=== PATIENT | male | born 1955 | race Caucasian/White ===

== ENCOUNTER 2017-03-09 06:15 | Day surgery (SDC) | payer BC ==
[2017-03-09] VITALS (21 sets, daily range): BP systolic 104–153; BP diastolic 58–90; PULSE 68–96; RESP 12–20; Ht 177.8 cm; Wt 67.3 kg
[~2017-03-09] VITALS: Ht 177.8 cm; Wt 67.3 kg
[2017-03-09 06:52] LABS: ADD SCAN DIFF NO
[2017-03-09] MEDS ORDERED: SIMV20TA2 PO (06:53)
[2017-03-09] MEDS ORDERED: ASPI81TA3 PO (06:53)
[2017-03-09 07:07] LABS: ABNORMAL IP MESSAGE 1; ALBUMIN 4.7 g/dl (3.3-4.9); HEMATOCRIT 43.7 % (42.0-52.0); HEMOGLOBIN 14.5 g/dl (14.0-18.0); MEAN CORPUSCULAR HEMOGLOBIN 31.8 pg (29.0-33.0); MEAN CORPUSCULAR HGB CONC 33.2 g/dl (32.0-37.0); MEAN CORPUSCULAR VOLUME 95.8 fl (82.0-101.0); MEAN PLATELET VOLUME 13.9 fl (7.4-10.4); PLATELET COUNT 86 10^3/UL (140-415); RED BLOOD COUNT 4.56 10^6/ul (4.70-6.10); RED CELL DISTRIBUTION WIDTH 12.4 % (11.5-14.5); WHITE BLOOD COUNT 10.9 10^3/ul (4.8-10.8)
[2017-03-09 07:08] LABS: POTASSIUM 3.8 mmol/L (3.5-5.1)
[2017-03-09] MEDS ORDERED: LIDOCAINE 1% (MDV) 20 ML INJ ONE (07:09)
[2017-03-09 07:10] LABS: ALBUMIN/GLOBULIN RATIO 1.34; BILIRUBIN,INDIRECT 0.6 mg/dl (0-1.1); BILIRUBIN,TOTAL 0.6 mg/dl (0.2-1.3); CREATININE 0.69 mg/dl (0.61-1.24); TOTAL PROTEIN 8.2 g/dl (6.1-8.1)
[2017-03-09] MEDS ORDERED: NITROGLYCERIN (IC) 100 MCG/ML INJ ONE (07:10)
[2017-03-09] MEDS ORDERED: VERAPAMIL 5 MG INJ ONE (07:10)
[2017-03-09] MEDS ORDERED: IODIXANOL LOCM 100 ML BTL ONE (07:10)
[2017-03-09 07:11] LABS: CALCIUM 9.4 mg/dl (8.4-10.2); INR 0.93; PARTIAL THROMBOPLASTIN TIME 32.9 Sec (25.0-35.0); PROTIME 12.5 Sec (12.2-14.2)
[2017-03-09] MEDS ORDERED: SOD CHLORIDE 0.9% 500 ML ONE (07:11)
[2017-03-09] MEDS ORDERED: HEPARIN 1000 UNITS/ML 10 ML INJ ONE (07:11)
[2017-03-09] MEDS ORDERED: MIDAZOLAM 1 MG/ML 2 ML INJ ONE (08:23)
[2017-03-09] MEDS ORDERED: FENTAnyl 50 MCG/ML VIAL ONE (08:23)
--- NOTE | 2017-03-09 09:06 | RADRPT ---
Vent Rate: 93 bpm RR Interval: 0 msec DE Interval: 144 msec QRS Duration: 88 msec QT Interval: 384 msec QTC Interval: 477 msec P-R-T [place]: 67 - 73 - 68 degrees Normal sinus rhythm Possible Left atrial enlargement Left ventricular hypertrophy Cannot rule out Anteroseptal infarct , age undetermined Abnormal ECG Electronically Signed By: Jerad Trevino [id number]
[2017-03-09] MEDS ORDERED: SOD CHLORIDE 0.9% 1,000 ML IV SCH (09:14)
--- NOTE | 2017-03-09 09:17 | PDOCDIS ---
Discharge Instructions CONDITION Patient Condition: Good HOME CARE INSTRUCTIONS: Diet Instructions: Low Fat /Cholesterol ACTIVITY: Activity Restrictions: Avoid heavy lifting (no strenous activity or activity that cause shortness of breath or chest pain) Do not Drive (x 1 day) FOLLOW UP/APPOINTMENTS Appointments CT surgery evaluation Ranulfo Alvarado DO Mar 09, 2017 09:17
[2017-03-09 09:26] LABS: LYMPHOCYTES # 1.4 10^3/ul (0.8-2.9); NEUTROPHIL # 8.3 10^3/ul (1.6-7.5)
[2017-03-09 09:27] LABS: PLATELET ESTIMATE PLT APPEAR DECREASED
[2017-03-09] MEDS ORDERED: ONDANSETRON 4 MG INJ IV PRN (09:30)
[2017-03-09] MEDS ORDERED: AL HYDROX/MG HYDROX/SIMETH 30 ML CUP PO PRN (09:30)
[2017-03-09] MEDS ORDERED: HOLD all METFORMIN and METFORMIN CONTAINING medications for 48 hours post procedure. Chec XX SCH (09:30)
[2017-03-09] MEDS ORDERED: ACETAMINOPHEN 325 MG TAB PO PRN (09:30)
--- NOTE | 2017-03-09 10:19 | CARRPT ---
DATE OF PROCEDURE: 03/09/2017 PROCEDURES: 1. Left heart catheterization. 2. Right and left coronary angiogram. 3. Interpretation and supervision of right and left coronary angiogram. 4. Left ventricular pressure measurements. 5. Right radial artery approach. PATIENT HISTORY: This is a 61-year-old male who presents with unstable angina and abnormal stress test. FINDINGS: HEMODYNAMICS: 1. LV pressure was 131/-2 with an EDP of 27. 2. Aortic pressure was 121/73, there was a gradient of 10 mmHg. CORONARY FINDINGS: 1. Left main is a large caliber vessel with no significant disease. 2. Circumflex is a medium caliber vessel. In the mid vessel there is an 80% stenosis and then following that there is a 99% stenosis leading into the second obtuse marginal. Second obtuse marginal is a medium caliber vessel. There is a first obtuse marginal which is prior to the area of stenosis with a proximal 30% stenosis in the obtuse marginal. 3. LAD is a large caliber vessel and proximally there is a 90% long area of stenosis. This does include the ostium of the first medium caliber diagonal with ostium of the diagonal having 80% stenosis. The mid to distal LAD is a medium to large caliber vessel with no significant disease. 4. RCA is a medium caliber vessel and is dominant. There is a proximal 100% occlusion. The mid to distal vessel is seen via collaterals from the left system with a mid 20% stenosis. DESCRIPTION OF PROCEDURE: The patient was brought to the microbiology lab technician after informed consent. The patient was prepped and draped as per protocol. Right radial access was obtained. The 5/6-Mauritanian sheath was placed in the right radial artery. A 5-Mauritanian JL3.5 diagnostic catheter was used to engage the left main and angiogram was performed. A 5-Mauritanian JR4 catheter was used to enter the left ventricle. Pressure measurements were obtained as well as pullback. We next engaged the RCA, angiogram was performed. The patient with evidence of triple vessel disease including CAN SLIDER of the RCA. Given the above, patient will be referred for CT surgery. All catheters and wires were removed. There were no immediate complications. DIAGNOSIS: Obstructive coronary artery disease, triple vessel. COMPLICATIONS: None. ESTIMATED BLOOD LOSS: Minimal. RECOMMENDATIONS: CT surgery evaluation. Dictated By: FRANCISCO GUZMAN/CONCEPCION Conf#: [id number] DID#: [id number]
== END 2017-03-09 14:20 | disposition home or self-care (01) ==
LOC: SDS 06:15
PROVIDERS: ATTEND Internal Medicine Cardiovascular Disease
DX: I25.10 Atherosclerotic heart disease of native coronary artery without angina pectoris (principal); R94.39 Abnormal result of other cardiovascular function study
CPT/HCPCS: 80053; 85025; 85610; 85730; 93005; 93458; C1769; C1887; C1894; J1644; J2250; J3010; J7040; Q9967; Z7610

== ENCOUNTER 2017-03-29 07:30 | Inpatient (IN) | payer BC ==
[2017-03-29] VITALS (12 sets, daily range): BP systolic 100–154; BP diastolic 59–87; PULSE 87–150; RESP 16–22; TEMP 95–95.7; Ht 165.1 cm; Wt 66.9 kg
[~2017-03-29] VITALS: Ht 165.1 cm; Wt 66.9 kg
[~2017-03-29 07:30] MED LIST: ASPI81TA3 PO; SIMV20TA2 PO
[2017-03-29] MEDS ORDERED: VANCOMYCIN 1 GM INJ ONE (09:20)
[2017-03-29] MEDS ORDERED: GELATIN SIZE 100 SPONGE ONE ×2 (09:20→19:45)
[2017-03-29] MEDS ORDERED: THROMBIN 5000 UNIT VIAL ONE ×2 (09:21→19:45)
[2017-03-29] MEDS ORDERED: HEPARIN 1000 UNITS/ML 10 ML INJ ONE ×2 (09:21→13:03)
[2017-03-29] MEDS ORDERED: MIDAZOLAM 5 ML ONE ×4 (10:16→13:22)
[2017-03-29] MEDS ORDERED: PHENYLephrine (100 MCG/ML) 5ML SYG ONE ×5 (10:21→17:41)
[2017-03-29] MEDS ORDERED: ALBUMIN HUMAN 25% 300 ML ONE (10:26)
[2017-03-29] MEDS ORDERED: AMINOCAPROIC ACID 5 GM INJ ONE ×5 (10:27→19:39)
[2017-03-29] MEDS ORDERED: CA CHLORIDE 10% 10 ML SYRINGE ONE (10:27)
[2017-03-29] MEDS ORDERED: HEPARIN 10,000 UNITS/ML 1 ML INJ ONE (10:28)
[2017-03-29] MEDS ORDERED: POTASSIUM CHLORIDE 40 MEQ INJ ONE ×2 (10:28→17:28)
[2017-03-29] MEDS ORDERED: PHENYLephrine 10 MG INJ ONE (10:29)
[2017-03-29] MEDS ORDERED: MAGNESIUM SULFATE (MG) 50% 10 ML INJ ONE (10:30)
[2017-03-29] MEDS ORDERED: MANNITOL 25% 150 ML ONE (10:31)
[2017-03-29] MEDS ORDERED: NA BICARBONATE 8.4% 50 ML SYG ONE (10:31)
--- NOTE | 2017-03-29 11:08 | HPN ---
Date/Time of Note Date/Time of Note DATE: 03/29/17 TIME: 11:08 Interval H&P Admission Note Pt. seen H&P reviewed: No system changes TOMEKA DELEON MD March 29, 2017 11:08
[2017-03-29] MEDS ORDERED: POLYMYXIN/BACITRACIN 1L IRRIG ONE (11:14)
[2017-03-29] MEDS ORDERED: PHENYLephrine 20MG IN 250 ML 250 ML IV SCH ×2 (11:30→22:30)
[2017-03-29] MEDS ORDERED: INSULIN HUMAN REGULAR 100 UNIT in SOD CHLORIDE 0.9% 99 ML IV SCH (11:30)
[2017-03-29] MEDS ORDERED: EPINEPHrine 4 MG in DEXTROSE 5% 246 ML IV SCH (11:30)
[2017-03-29] MEDS ORDERED: CEFAZOLIN 1 GM INJ ONE ×3 (12:17→19:57)
[2017-03-29] MEDS ORDERED: PAPAVERINE 60 MG INJ ONE (13:06)
[2017-03-29] MEDS ORDERED: FUROSEMIDE 20 MG INJ ONE ×2 (13:26→18:23)
[2017-03-29] MEDS ORDERED: PROTAMINE 250 MG INJ ONE ×2 (17:39→21:33)
[2017-03-29] MEDS ORDERED: AMIODARONE 150 MG INJ ONE (18:06)
[2017-03-29] MEDS ORDERED: ETOMIDATE 20 MG INJ ONE (18:20)
[2017-03-29] MEDS ORDERED: LIDOCAINE 2% (SDV) 5 ML INJ ONE (18:20)
[2017-03-29] MEDS ORDERED: ROCURONIUM 50 MG INJ ONE (18:20)
--- NOTE | 2017-03-29 22:21 | OPR ---
Date/Time of Note Date/Time of Note DATE: 03/29/17 TIME: 22:19 Operative Report Preoperative Diagnosis CAD , MR Postoperative Diagnosis Same Operation Performed CABG times 5 and MVR Surgeon: TOMEKA DELEON MD Instructional Media Services Technician: SADI LOVELACE MD Anesthesia: general Anesthesiologist: ESTEPHANIA HOWARD MD Tubes/Drains CT times 2 Complications: None Pt Condition Post Procedure: critical Operative\Procedure Findings Dictated TOMEKA DELEON MD March 29, 2017 22:21
--- NOTE | 2017-03-29 22:28 | RADRPT ---
PROCEDURE: XR Chest. CLINICAL INDICATION: Postoperative.. TECHNIQUE: Single frontal chest x-ray. COMPARISON: None. FINDINGS: The patient status post sternotomy. Internal balloon pump is at the mid just below the aortic arch. Bilateral chest tubes and mediastinal drains are present. Endotracheal tube tip is at the level o f the aortic knob above rose. [place]-Sonia catheter tip is in the main pulmonary artery.. Heart is mildly enlarged. There is no CHF.. No focal infiltrate is seen. There is no pleural effusion. The re is no pneumothorax. The osseous structures are unremarkable. IMPRESSION: Lines as described above. No CHF or pneumothorax. Fine discussed with Dr. Mane 03/29/2017 at 22:15. RPTAT: HMVK .Ranulfo Garay MD, Date Time Electronically viewed and signed by .Ranulfo Garay MD, on 03/29/2017 22:28 .K/
[2017-03-29] MEDS ORDERED: ONDANSETRON 4 MG INJ IV PRN (22:30)
[2017-03-29] MEDS ORDERED: DOPamine-D5W 1.6 MG/ML 250 ML IV SCH (22:30)
[2017-03-29] MEDS: EPINEPHrine 4 MG in DEXTROSE 5% 246 ML IV SCH (22:30)
[2017-03-29] MEDS ORDERED: DIPHENHYDRAMINE 50 MG INJ IV PRN (22:30)
[2017-03-29] MEDS ORDERED: morphine (1 MG/ML) 10ML SYRINGE IV PRN ×2 (22:30)
[2017-03-29] MEDS ORDERED: NITROGLYCERIN 50 MG/D5W (PMX) 250 ML IV SCH (22:30)
[2017-03-29] MEDS ORDERED: hydrALAzine 20 MG INJ IV PRN (22:30)
[2017-03-29] MEDS ORDERED: EPHEDrine SULFATE 50 MG/5 ML SYG IV PRN (22:30)
[2017-03-29] MEDS: MILRINONE LACTATE 100 ML IV SCH (22:30)
[2017-03-29] MEDS ORDERED: DEXTROSE 50% 50 ML SYRINGE ONE (22:40)
[2017-03-29] MEDS: POTASSIUM CHLORIDE 40 MEQ, CALCIUM CHLORIDE 10% 1 GM in DEXTROSE 5%-0.225% NACL 1,000 ML IV SCH (23:03)
[2017-03-29 23:10] LABS: MODE VENT - AC; MetHgb Mixed Venous 0.5 %; Mixed Venous COHb 0.3 %; Mixed Venous Fraction OxyHgb 78.7 %; Mixed Venous Oxygen Sat 79.3 mmHG (65.0-75.0); Mixed Venous Total Hemglobin 12.5 g/dl; Sample Type BLMV
[2017-03-29 23:11] LABS: AADO2 Arterial 145.4 mmHg (7.0-24.0); Arterial Base Excess -5.1 mmol/L (-3.0-3); Arterial COHb 0.3 % (0.0-3.0); Arterial HCO3 22.2 mmol/L (22.0-26.0); Arterial MetHb 0.6 % (0.0-1.5); MODE VENT - AC
[2017-03-29 23:30] LABS: ADD SCAN DIFF NO
[2017-03-29 23:38] LABS: ABNORMAL IP MESSAGE 1; HEMATOCRIT 36.1 % (42.0-52.0); HEMOGLOBIN 12.2 g/dl (14.0-18.0); MEAN CORPUSCULAR HEMOGLOBIN 30.9 pg (29.0-33.0); MEAN CORPUSCULAR HGB CONC 33.8 g/dl (32.0-37.0); MEAN CORPUSCULAR VOLUME 91.4 fl (82.0-101.0); MEAN PLATELET VOLUME 11.3 fl (7.4-10.4); PLATELET COUNT 97 10^3/UL (140-415); RED BLOOD COUNT 3.95 10^6/ul (4.70-6.10); RED CELL DISTRIBUTION WIDTH 14.6 % (11.5-14.5); WHITE BLOOD COUNT 24.6 10^3/ul (4.8-10.8)
[2017-03-29 23:49] LABS: INR 1.43; PT RATIO 1.4
[2017-03-29 23:51] LABS: ALBUMIN 3.2 g/dl (3.3-4.9); ALBUMIN/GLOBULIN RATIO 1.45; BILIRUBIN,INDIRECT 0.7 mg/dl (0-1.1); BILIRUBIN,TOTAL 0.7 mg/dl (0.2-1.3); CALCIUM 8.7 mg/dl (8.4-10.2); CREATININE 0.93 mg/dl (0.61-1.24); TOTAL PROTEIN 5.4 g/dl (6.1-8.1)
[2017-03-30] VITALS (105 sets, daily range): BP systolic 88–143; BP diastolic 47–69; PULSE 85–131; RESP 20–29; TEMP 96–103
[2017-03-30 00:01] LABS: POTASSIUM 2.8 mmol/L (3.5-5.1)
--- NOTE | 2017-03-30 00:25 | RADRPT ---
PROCEDURE: XR Chest. CLINICAL INDICATION: Postoperative evaluation. Balloon pump TECHNIQUE: Portable AP supine view of the chest was obtained. COMPARISON: 03/29/2017 at 21:55 FINDINGS: Distal tip of the endotracheal tube remains in good position projecting 3.6 cm above the rose. Th e nasogastric tube is traceable to below the inferior margin of the exposure within the region of th e stomach. The right internal jugular approach [place]-Sonia catheter is again noted with the tip proje cting over the main pulmonary outflow tract. Intra-aortic balloon pump radiopaque tip projects just below the aortic knob, unchanged. Left-sided chest tubes are again noted. The lungs are clear. T here is no evidence for pleural effusion, pneumothorax or pulmonary vascular congestion. Sternotomy wires consistent with recent thoracotomy are again demonstrated. Multiple monitoring wires overlie the chest limiting fine evaluation RPTAT:HJJR IMPRESSION: 1. Radiopaque tip of the intra-aortic balloon pump remains in satisfactory position projecting just below the aortic knob. 2. Endotracheal tube, nasogastric tube, right [place]-Sonia catheter and left-sided chest tubes remain in satisfactory radiographic positions for this patient who is status post thoracotomy, presumably C ABG. 3. Well expanded lungs without evidence of consolidation or obvious pneumothorax on this supine exp osure. Physician Shelly Date Time Electronically viewed and signed by Physician Shelly on 03/30/2017 00:24 JR/
[2017-03-30] MEDS ORDERED: HYDROmorphONE 1 MG/ML SYG IV PRN ×4 (00:30→02:00)
[2017-03-30 00:35] LABS: LYMPHOCYTES # 1.7 10^3/ul (0.8-2.9); MONOCYTE # 3.2 10^3/ul (0.3-0.9); NEUTROPHIL # 15.5 10^3/ul (1.6-7.5); PLATELET ESTIMATE PLT APPEAR DECREASED
[2017-03-30] MEDS: POTASSIUM CHLORIDE 50 ML IVPB PRN ×3 (00:42→02:58)
[2017-03-30] MEDS: POTASSIUM CHLORIDE 40 MEQ, CALCIUM CHLORIDE 10% 1 GM in DEXTROSE 5%-0.225% NACL 1,000 ML IV SCH (00:49)
[2017-03-30] MEDS: INSULIN ASPART [NOVOLOG] 3 ML PEN SC SCH ×5 (01:00→17:00)
[2017-03-30 01:53] LABS: AADO2 Arterial 119.4 mmHg (7.0-24.0); Arterial Base Excess -1.8 mmol/L (-3.0-3); Arterial COHb 0.3 % (0.0-3.0); Arterial Fraction of Oxyhgb 98.1 % (93.0-99.0); Arterial HCO3 22.7 mmol/L (22.0-26.0); Arterial MetHb 0.5 % (0.0-1.5); Arterial Total Hemglobin 12.7 g/dl (12.0-18.0); MODE VENT - AC
[2017-03-30] MEDS: PHENYLephrine 40 MG in DEXTROSE 5% 496 ML IV SCH ×7 (01:55→23:04)
[2017-03-30] MEDS: PROPOFOL 100 ML IV SCH ×2 (02:18→11:00)
[2017-03-30 02:54] LABS: PROTIME 17.5 Sec (12.2-14.2)
[2017-03-30] MEDS: ACETAMINOPHEN 650 MG SUPP PR PRN ×3 (02:57→20:28)
--- NOTE | 2017-03-30 03:47 | OPR ---
DATE OF OPERATION: PREOPERATIVE DIAGNOSES: 1. Coronary artery disease. 2. Mitral regurgitation. POSTOPERATIVE DIAGNOSES: 1. Coronary artery disease. 2. Mitral regurgitation. PROCEDURE: 1. Coronary artery bypass grafting x5. a. CHAMPION to LAD. b. Saphenous vein graft to the first obtuse marginal branch of the circumflex. c. Saphenous vein branch to the second obtuse marginal of the circumflex. d. Saphenous vein graft in a complex fashion to the PDA. e. Saphenous vein graft in a complex fashion to the PAUL. 2. CHAMPION to LAD. 3. Right coronary endarterectomy. 4. Obtuse marginal branch of the circumflex endarterectomy. 5. Mitral valve regurgitation. 6. Saphenous vein harvest from the left thigh. 7. Saphenous vein harvest from the right thigh. 8. Right femoral intraaortic balloon pump placement. 9. Right femoral central line placement. SURGEON: Dr. Littlejohn HEAT READER: Dr. Pantoja ANESTHESIA: General. INFORMED CONSENT: Risks, benefits, complications, alternative therapies, high-risk nature of the op eration were fully explained to the patient and the family, consent obtained. OPERATIVE TECHNIQUE: The patient was placed in supine position, prepped and draped in usual sterile fashion. A timeout was called. Sternotomy incision was made from the sternal notch down to the xi phoid process. Saphenous vein was harvested from bilateral using endoscopic techniques, from the ri ght and left thighs. The sternum was opened. Left internal mammary artery was harvested using electrocautery and titaniu m clips. Chest retractor was placed. Pericardium opened. Patient fully heparinized. Cannulation sutures of 3-0 Prolene with pledgets were applied to the distal ascending aorta, mid ascending aorta , body of the right atrium, right atrial appendage and the superior part of the right atrium. After adequate documentation of ACT, aorta was cannulated, followed by 2-stage venous cannula, anterior a nd retrograde cardioplegic cannula and a venous cannula going into the superior vena cava. The heart was placed on cardiopulmonary bypass. After stabilization on bypass, crossclamp applied. Heart was arrested. Arrest was a cold blood cardioplegia given every 15 to 20 minutes, antegrade a nd retrograde, and being through the vein grafts as they were being reconstructed, and topical slush to the surface of the heart. First anastomosis was the first obtuse marginal branch of the circumflex. Vein was used, end-to-otilia e fashion. Ten mm longitudinal arteriotomy, 7-0 Prolene in continuous suture technique, end-to-side manner. The second anastomosis was the second obtuse marginal branch of the circumflex, 15 mm longitudinal a rteriotomy after an endarterectomy, end-to-side fashion, 7-0 Prolene continuous suture technique. T he third and fourth anastomoses were done to the PDA and PAUL in a complex fashion using the same vei n, end-to-side manner, after coronary endarterectomy, 7-0 Prolene in continuous suture technique. At this time, umbilical tapes were passed around the superior and inferior vena cava. They were agustina en down. Right atrium was opened. The ovalis was opened. The dome of the left atrium was op ened. Left atrium was entered. The mitral valve was inspected, appeared to be grossly diseased, es pecially anterior leaflet. The anterior leaflet was resected. The posterior leaflet was kept, 29 m m valve was then sized, placed after using 16 valve sutures in the annulus of the mitral valve. Sut ures were taken to the mitral prosthesis which was a tissue valve [employer]. The sutures tied. The septum was closed using 4-0 Prolene suture in 2 layers. The right atrium was closed in a similar f ashion. The mammary was anastomosed to the LAD, 8 mm longitudinal arteriotomy, end-to-side fashion, 7-0 Prol jose manuel in continuous suture technique. The 3 proximal anastomoses were done on the same crossclamp, 4.5 mm punches, end-to-side manner, 6-0 Prolene in continuous suture technique. It appeared that the first obtuse marginal branch of vein appeared to be a little tight. It was then taken down and anastomosed to the vein of the second obt use marginal branch, end-to-side manner, after a 10 mm longitudinal arteriotomy, 7-0 Prolene in cont inuous suture technique. This was done off crossclamp. Crossclamp had been taken off. Head placed in steep Trendelenburg position, heart and the grafts de aired. The heart was arrested for a good 15 minutes on bypass, then came off bypass without any sig nificant difficulty. However, the blood pressure appeared to be low and the myocardial function fan eared to be poor, ejection fraction about 20% to 25%, which was the same as the beginning of the ope ration. Mitral valve apparatus appeared to be intact. No bleeding, no perivalvular leak. Intraaor tic balloon pump was placed through a right femoral approach, right central line approach, line was also placed for IV use. Patient was given protamine, cannulas removed, sutures tied. Patient also had to be supported with multiple inotropic drips. However, heart function improved. No evidence of any bleeding was noted. Four chest tubes were placed, 2 mediastinal, 2 pleurals. Two ventricular pacing wires, all al t out through a lower stab wound, secured to skin using silk sutures. The sternum was closed using cable system [id number] x4. Linea alba and the deep tissues were irrigated again and closed in 2 layers of #1 Vicryl suture for the linea alba, 2-0 Vicryl suture for the deep and 4-0 Monocryl rodriguez ture for running subcuticular skin closure. The leg was closed in a similar fashion. The patient t ransported in stable condition to ICU. Dictated By: TOMEKA LITTLEJOHN MD FM/NTS Conf#: [id number] DID#: [id number] CC: SADI PANTOJA MD;*EndCC*
[2017-03-30] MEDS: HYDROmorphONE 1 MG/ML SYG IV PRN ×4 (04:12→18:03)
[2017-03-30 05:22] LABS: ADD SCAN DIFF NO
[2017-03-30 05:28] LABS: ABNORMAL IP MESSAGE 1; BASOPHILS % 0.2 % (0.0-2.0); EOSINOPHILS % 0.1 % (0.0-7.0); HEMOGLOBIN 12.3 g/dl (14.0-18.0); LYMPHOCYTES # 1.1 10^3/ul (0.8-2.9); LYMPHOCYTES % 6.5 % (15.0-51.0); MEAN CORPUSCULAR HEMOGLOBIN 30.9 pg (29.0-33.0); MEAN CORPUSCULAR HGB CONC 34.2 g/dl (32.0-37.0); MEAN CORPUSCULAR VOLUME 90.5 fl (82.0-101.0); MONOCYTE # 1.9 10^3/ul (0.3-0.9); MONOCYTES % 11.2 % (0.0-11.0); NEUTROPHIL # 13.9 10^3/ul (1.6-7.5); PLATELET COUNT 113 10^3/UL (140-415); RED BLOOD COUNT 3.98 10^6/ul (4.70-6.10); RED CELL DISTRIBUTION WIDTH 15.4 % (11.5-14.5); WHITE BLOOD COUNT 17.2 10^3/ul (4.8-10.8)
[2017-03-30 05:48] LABS: INR 1.14; PROTIME 14.6 Sec (12.2-14.2); PT RATIO 1.1
[2017-03-30 05:49] LABS: PARTIAL THROMBOPLASTIN TIME 33.5 Sec (25.0-35.0)
[2017-03-30 05:54] LABS: CALCIUM 8.9 mg/dl (8.4-10.2); CREATININE 1.1 mg/dl (0.61-1.24); MAGNESIUM 1.9 mg/dl (1.7-2.5); POTASSIUM 5.6 mmol/L (3.5-5.1)
[2017-03-30] MEDS: MILRINONE LACTATE 100 ML IV SCH ×2 (06:09→23:31)
[2017-03-30] MEDS: MAGNESIUM SULFATE 1 GM/D5W 100 ML IVPB PRN ×2 (06:24→23:26)
[2017-03-30] MEDS: EPINEPHrine 4 MG in DEXTROSE 5% 246 ML IV SCH (07:42)
[2017-03-30 08:03] LABS: Arterial Base Excess -4.2 mmol/L (-3.0-3); Arterial COHb 0.3 % (0.0-3.0); Arterial Fraction of Oxyhgb 97.7 % (93.0-99.0); Arterial HCO3 20.5 mmol/L (22.0-26.0); Arterial MetHb 0.5 % (0.0-1.5); Arterial Total Hemglobin 12.3 g/dl (12.0-18.0); MODE VENT - AC
[2017-03-30] MEDS ORDERED: ALBUMIN HUMAN 5% 250 ML IV PRN (09:00)
--- NOTE | 2017-03-30 09:09 | RADRPT ---
PROCEDURE: Chest 1 views. CLINICAL INDICATION: Shortness of breath TECHNIQUE: AP views of the chest was obtained. COMPARISON: Yesterday FINDINGS: The heart is large. Endotracheal tube is stable. [place]-Sonia catheter continues to have its tip in th e expected location of the main pulmonary artery. Mediastinal drain is unchanged. Intra-aortic ball oon pump is stable and has its tip just below the level of the aortic knob. Left-sided chest tubes a re stable. Right-sided chest tube is unchanged. No pneumothorax as visualized. The lungs are hyper expanded. No consolidation is seen mediasternotomy wires overlie the heart. The osseous structure s are stable. IMPRESSION: Cardiomegaly . Stable bilateral chest tubes. No visualized pneumothorax. Remaining support lines and tubes appear stable. Hyperexpanded, clear lungs. RPTAT: AA .Stevie Irizarry MD, Date Time Electronically viewed and signed by .Stevie Irizarry MD, on 03/30/2017 09:08 .P/
--- NOTE | 2017-03-30 09:24 | CONS ---
Date/Time of Note Date/Time of Note DATE: 03/30/17 TIME: 09:20 Assessment/Plan Assessment/Plan Additional Assessment/Plan Chest x-ray was reviewed from today which is totally clear. Endotracheal tube is at an adequate level. Patient currently on intra-aortic balloon pump. Propofol at 25 mics per kilo per minute. Ventilator settings; AC of 22, tidal volume 700, PEEP of 5, 40% FiO2. Assessment recommendations; next 1. Patient admitted for elective CABG surgery and mitral valve replacement. 2. Patient clinically doing very well. Continue current treatment. Intra-aortic balloon pump will be removed tomorrow. Most likely patient will be extubated after that. Ventilator settings have been adjusted, tidal volume has been decreased to 550, as the patient currently is being mildly hyperventilated. Consultation Date/Type/Reason Admit Date/Time March 29, 2017 at 09:30 Date of Consultation: March 30, 2017 Type of Consultation: Pulmonary/critical care Reason for Consultation Pulmonary consultations obtained for management of respiratory failure, patient status post CABG surgery. History presenting any; patient is a 61-year-old white male who was admitted yesterday for elective CABG surgery. Patient underwent CABG 5 as well as mitral valve replacement. Patient has been admitted to ICU on ventilator. By the time I saw the patient the patient is orally intubated, despite being on sedation is completely awake and follows commands. Past medical history; next 1. History of coronary artery disease. 2. Possibly hypertension. Medications; were reviewed. Allergies; none. Social history; non-smoker. Family history; currently not available. Next Occupational history; currently not available. Review of systems; limited review of system could be obtained. Patient denies any shortness of breath, chest pain. Any nausea vomiting. General exam; elderly male, orally intubated, awake and alert. Currently in no distress. Social History Smoking Status: Current every day smoker Exam/Review of Systems Vital Signs Vitals Vital Signs Date Time Temp Pulse Resp B/P Pulse Ox O2 Delivery O2 Flow Rate FiO2 03/30/17 07:00 100.6 102 22 97/65 100 03/30/17 05:18 40 03/29/17 10:15 Room Air Intake and Output 03/29/17 03/29/17 03/30/17 15:00 23:00 07:00 Intake Total 5099 ml 1817.0 ml Output Total 3544 ml 1047 ml Balance 1555 ml 770.0 ml Exam HEENT exam is; supple neck, no JVD. No lymphadenopathy. Midline trachea. No thyromegaly. Orally intubated. Pupils are midsize reactive to light. Patient has fair dentition. Neck Chest examined; clear to auscultation. Multiple chest tubes are in place. There is a dressing applied over the sternum. Abdomen examination; soft, non-distended. Nontender. No organomegaly. Bowel sounds audible. Extremity exam ; no peripheral edema. Pulses 1+ bilaterally. There is a dressing applied over the right lower extremity. 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 Results Result Diagram: 03/30/17 0500 03/30/17 0500 Results 24 hrs Laboratory Tests Test 03/29/17 22:29 03/29/17 22:59 03/29/17 23:00 03/29/17 23:39 Bedside Glucose 75 109 Blood [facility] arterial Arterial Blood Date Drawn 03/29/2017 10:50:59 PM 03/29/2017 10:57:43 PM Arterial Blood Gas Puncture Site A-Line A-Line Lane Test N/A N/A Mixed Venous Blood PO2 48.0 H Mixed Venous Blood O2 Saturation 79.3 H Mixed Venous Blood Total Hemoglobin 12.5 Mixed Venous Blood Oxyhemoglobin 78.7 Mixed Venous Bld Carboxyhemoglobin 0.3 Mixed Venous Blood Methemoglobin 0.5 Blood Gas Temperature 37.0 37.0 Blood Gas Respiration Rate 18.0 18.0 Blood Gas Actual Respiration Rate 18 18 Blood Gas Modality VENT - AC VENT - AC FiO2 60.0 60.0 Blood Gas Tidal Volume 600.0 600.0 Blood Gas Low PEEP Setting 5.0 5.0 Blood Gas Inspiratory Pressure 20.0 20.0 Blood Gas Notified Whom KM KM Blood Gas Notified Time 03/29/2017 11:10:29 PM 03/29/2017 11:11:44 PM White Blood Count 24.6 #H Red Blood Count 3.95 L Hemoglobin 12.2 L Hematocrit 36.1 L Mean Corpuscular Volume 91.4 Mean Corpuscular Hemoglobin 30.9 Mean Corpuscular Hemoglobin Concent 33.8 Red Cell Distribution Width 14.6 H Platelet Count 97 L Mean Platelet Volume 11.3 H Neutrophils % 63.0 Band Neutrophils % 17.0 H Lymphocytes % 7.0 L Monocytes % 13.0 H Neutrophils # 15.5 H Lymphocytes # 1.7 Monocytes # 3.2 H Platelet Estimate PLT APPEAR DECREASED Prothrombin Time 17.5 #H Prothrombin Time Ratio 1.4 INR International Normalized Ratio 1.43 Activated Partial Thromboplast Time 32.0 Arterial Blood pH (Temp corrected) 7.264 *L Arterial Blood pCO2 (Temp correct) 50.1 H Arterial Blood pO2 (Temp corrected) 227.3 H Arterial Blood HCO3 22.2 Arterial Blood Base Excess -5.1 L Arterial Blood Oxygen Saturation 98.9 H Arterial Blood Carboxyhemoglobin 0.3 Arterial Blood Methemoglobin 0.6 Blood Gas A-a O2 Differential 145.4 H Oxyhemoglobin Percent 98.0 Total Hemoglobin 13.0 Blood Gas Critical Value Read Back Judit PARKER RN Sodium Level 144 Potassium Level 2.8 *L Chloride Level 110 Carbon Dioxide Level 25 Anion Gap 12 Blood Urea Nitrogen 15 Creatinine 0.93 Glucose Level 169 Calcium Level 8.7 Magnesium Level 2.1 Total Bilirubin 0.7 Direct Bilirubin 0.00 Indirect Bilirubin 0.7 Aspartate Amino Transf (AST/SGOT) 113 H Alanine Aminotransferase (ALT/SGPT) 35 Alkaline Phosphatase 35 L Total Protein 5.4 L Albumin 3.2 L Globulin 2.20 Albumin/Globulin Ratio 1.45 Test 03/30/17 01:45 03/30/17 01:50 03/30/17 04:58 03/30/17 05:00 Blood Gas Specimen Source Blood arterial Arterial Blood Date Drawn 03/30/2017 1:45:12 AM Arterial Blood pH (Temp corrected) 7.397 Arterial Blood pCO2 (Temp correct) 37.8 Arterial Blood pO2 (Temp corrected) 266.8 H Arterial Blood HCO3 22.7 Arterial Blood Base Excess -1.8 Arterial Blood Oxygen Saturation 98.[address] Test N/A Arterial Blood Gas Puncture Site A-Line Arterial Blood Carboxyhemoglobin 0.3 Arterial Blood Methemoglobin 0.5 Blood Gas A-a O2 Differential 119.4 H Oxyhemoglobin Percent 98.1 Total Hemoglobin 12.7 Blood Gas Temperature 37.0 Blood Gas Respiration Rate 22.0 Blood Gas Actual Respiration Rate 22 Blood Gas Modality VENT - AC FiO2 60.0 Blood Gas Tidal Volume 700.0 Blood Gas Low PEEP Setting 5.0 Blood Gas Inspiratory Pressure 25.0 Blood Gas Notified Whom KM Blood Gas Notified Time 03/23/2017 1:53:05 AM Bedside Glucose 121 168 White Blood Count 17.2 #H Red Blood Count 3.98 L Hemoglobin 12.3 L Hematocrit 36.0 L Mean Corpuscular Volume 90.5 Mean Corpuscular Hemoglobin 30.9 Mean Corpuscular Hemoglobin Concent 34.2 Red Cell Distribution Width 15.4 H Platelet Count 113 L Mean Platelet Volume 12.0 H Neutrophils % 81.0 H Lymphocytes % 6.5 L Monocytes % 11.2 H Eosinophils % 0.1 Basophils % 0.2 Nucleated Red Blood Cells % 0.0 Neutrophils # 13.9 H Lymphocytes # 1.1 Monocytes # 1.9 H Eosinophils # 0.0 Basophils # 0.0 Nucleated Red Blood Cells # 0.0 Prothrombin Time 14.6 H Prothrombin Time Ratio 1.1 INR International Normalized Ratio 1.14 Activated Partial Thromboplast Time 33.5 Sodium Level 141 Potassium Level 5.6 #H Chloride Level 111 H Carbon Dioxide Level 22 Anion Gap 14 Blood Urea Nitrogen 19 Creatinine 1.10 Glucose Level 218 Calcium Level 8.9 Magnesium Level 1.9 Test 03/30/17 05:13 03/30/17 07:00 Lab Scanned Report REFERENCE LAB Blood Gas Specimen Source Blood arterial Arterial Blood Date Drawn 03/30/2017 7:50:03 AM Arterial Blood pH (Temp corrected) 7.367 Arterial Blood pCO2 (Temp correct) 36.6 Arterial Blood pO2 (Temp corrected) 173.1 H Arterial Blood HCO3 20.5 L Arterial Blood Base Excess -4.2 L Arterial Blood Oxygen Saturation 98.[address] Test N/A Arterial Blood Gas Puncture Site A-Line Arterial Blood Carboxyhemoglobin 0.3 Arterial Blood Methemoglobin 0.5 Blood Gas A-a O2 Differential 70.0 H Oxyhemoglobin Percent 97.7 Total Hemoglobin 12.3 Blood Gas Temperature 37.0 Blood Gas Respiration Rate 22.0 Blood Gas Actual Respiration Rate 22 Blood Gas Modality VENT - AC FiO2 40.0 Blood Gas Tidal Volume 700.0 Blood Gas Low PEEP Setting 5.0 Blood Gas Notified Whom DOUGLAS Blood Gas Notified Time 03/30/2017 8:03:08 AM Medications Medications Current Medications Phenylephrine HCl 40 mg/Dextrose 500 ml @ 75 mls/hr TITRATE IV Last administered on 03/30/17t 07:39; Admin Dose 195 MLS/HR; Start 03/30/17 at 06:00 Potassium Chloride/Calcium Chloride/Dextrose/ Sodium Chloride (KCl/Ca Chloride/ D5-1/4ns) 1,030 ml @ 60 mls/hr [id number] IV Last administered on 03/30/17 00:49 ; Admin Dose 60 MLS/HR; Start 03/29/17 at 23:03 Insulin Aspart (Novolog Insulin Pen) NOVOLOG *MILD* ALGORI... Q4 SC Last administered on 03/30/17 05:13; Admin Dose 1 UNIT; Start 03/30/17 at 01:00 Acetaminophen 650 mg 650 mg Q3H PRN NM ELEVATED TEMPERATURE Last administered on 03/30/17 02:57; Admin Dose 650 MG; Start 03/29/17 at 23:30 Magnesium Sulfate/ Dextrose (Magnesium Sulfate 1 Gm/D5W) 100 ml @ 100 mls/hr PRN PRN IVPB PENDING LAB VALUE Last administered on 03/30/17 06:24; Admin Dose 100 MLS/HR; Start 03/29/17 at 23:30 Hydromorphone HCl (Dilaudid) 0.2 mg Q2H PRN IV PAIN Last administered on 01:39; Admin Dose 0.2 MG; Start 03/30/17 at 00:30 Hydromorphone HCl (Dilaudid) 0.4 mg Q2H PRN IV PAIN; Start 03/30/17 at 00:30 Hydromorphone HCl (Dilaudid) 0.2 mg Q15M PRN IV PAIN; Start 03/30/17 at 02:00 Hydromorphone HCl 0.4 mg 0.4 mg Q15M PRN IV PAIN Last administered on 09:11; Admin Dose 0.4 MG; Start 03/30/17 at 02:00 Milrinone Lactate 100 ml @ 7.526 mls/ hr TITRATE IV Last administered on 06:09; Admin Dose 5.519 MLS/HR; Start 03/30/17 at 02:05 Propofol (Diprivan) 100 ml @ 2.007 mls/ hr Q12H IV Last administered on 02:18; Admin Dose 2.007 MLS/HR; Start 03/30/17 at 02:20 Pantoprazole 40 mg 40 mg DAILY@06 IV ; Start 03/31/17 at 06:00 Albumin Human 250 ml @ 250 mls/hr PRN PRN IV NOTE; Start 03/30/17 at 09:00 Cefazolin Sodium (Ancef 1 Gm/50 ml (Pmx)) 50 ml @ 100 mls/hr Q8 IVPB ; Start at 10:00; Stop 03/30/17 at 22:29 Miscellaneous Information 1 ea NOTE XX ; Start 03/30/17 at 09:30 Glucose (Glutose) 15 gm Q15M PRN PO DECREASED GLUCOSE; Start 03/30/17 at 09:30 Glucose (Glutose) 22.5 gm Q15M PRN PO DECREASED GLUCOSE; Start 03/30/17 at 09: 30 Dextrose (D50w Syringe) 25 ml Q15M PRN IV DECREASED GLUCOSE; Start 03/30/17 at 09:30 Dextrose (D50w Syringe) 50 ml Q15M PRN IV DECREASED GLUCOSE; Start 03/30/17 at 09:30 Glucagon (Glucagen) 1 mg Q15M PRN IM DECREASED GLUCOSE; Start 03/30/17 at 09:30 Glucose (Glutose) 15 gm Q15M PRN BUCCAL DECREASED GLUCOSE; Start 03/30/17 at 09 :30 TAHIRA TERAN March 30, 2017 09:24
[2017-03-30] MEDS ORDERED: GLUCOSE GEL 15 GRAM TUBE PO PRN ×2 (09:30)
[2017-03-30] MEDS ORDERED: GLUCOSE GEL 15 GRAM TUBE BUCCAL PRN (09:30)
[2017-03-30] MEDS ORDERED: DEXTROSE 50% 50 ML SYRINGE IV PRN ×4 (09:30)
[2017-03-30] MEDS: ACCU-CHEK XX SCH ×15 (09:30→23:30)
[2017-03-30] MEDS ORDERED: GLUCAGON 1 MG INJ IM PRN (09:30)
[2017-03-30] MEDS ORDERED: DEXTROSE 5%-0.225% NACL 1,000 ML IV SCH (09:30)
--- NOTE | 2017-03-30 10:16 | RADRPT ---
Vent Rate: 102 bpm RR Interval: 0 msec ME Interval: 144 msec QRS Duration: 116 msec QT Interval: 380 msec QTC Interval: 495 msec P-R-T [place]: 41 - 69 - 82 degrees Sinus tachycardia Incomplete right bundle branch block Anteroseptal infarct , age undetermined Abnormal ECG Electronically Signed By: Heath Maya [id number]
[2017-03-30 11:21] LABS: CALCIUM 8.3 mg/dl (8.4-10.2); CREATININE 0.97 mg/dl (0.61-1.24); MAGNESIUM 2.2 mg/dl (1.7-2.5); POTASSIUM 5.9 mmol/L (3.5-5.1)
--- NOTE | 2017-03-30 11:38 | PN ---
Date/Time of Note Date/Time of Note DATE: 03/30/17 TIME: 11:37 Assessment/Plan Lines/Catheters IV Catheter Type (from Nrsg): IABP Helm in Place (from Nrsg): Yes Assessment/Plan Chief Complaint/Hosp Course SP CABG, MVR hemodynamically stable will wean the pressors continue IABP continue CT sxn Problems: Subjective 24 Hr Interval Summary Constitutional: improved Pain Control: mild Exam/Review of Systems Vital Signs Vitals Vital Signs Date Time Temp Pulse Resp B/P Pulse Ox O2 Delivery O2 Flow Rate FiO2 03/30/17 10:45 100.3 98 25 104/61 100 03/30/17 05:18 40 03/29/17 10:15 Room Air Intake and Output 03/29/17 03/29/17 03/30/17 15:00 23:00 07:00 Intake Total 5099 ml 1817.0 ml Output Total 3544 ml 1047 ml Balance 1555 ml 770.0 ml Exam ENMT: mucosa pink and moist, nl external ears & nose, nl lips & teeth, nl nasal mucosa & septum Neck: non-tender, supple Respiratory: clear to auscultation, normal air movement Cardiovascular: nl pulses, regular rate and rhythm Results Result Diagram: 03/30/17 0500 03/30/17 1048 TOMEKA DELEON MD March 30, 2017 11:38
[2017-03-30] MEDS: INSULIN HUMAN REGULAR 100 UNIT in SOD CHLORIDE 0.9% 99 ML IV SCH ×3 (11:47→22:52)
[2017-03-30] MEDS ORDERED: FUROSEMIDE 20 MG INJ IV ONE (12:00)
[2017-03-30] MEDS: LORAZEPAM 2 MG INJ IV PRN ×2 (12:25→17:57)
[2017-03-30] MEDS: CEFAZOLIN 1 GM/50 ML (PMX) 50 ML IVPB SCH ×3 (14:00→21:57)
--- NOTE | 2017-03-30 16:06 | HP ---
DATE OF ADMISSION: 03/29/2017 HISTORY OF PRESENT ILLNESS: History has been obtained from medical record as the patient is intubat ed and under sedation and currently no family member is available. The patient is a 61-year-old gen tleman who underwent elective cardiac catheterization on 03/09/2017 at [facility] and was noted to have triple vessel coronary artery disease. Subsequently, he was referred to Dr. Laurence escalante as an outpatient. The patient apparently had mitral regurgitation. The patient was taken to OR and underwent CABG x5 including the CHAMPION to LAD, SVG to obtuse marginal first, SVG to the seco nd obtuse marginal, SVG to PDA, SVG to PAUL. The patient also underwent right carotid endarterectomy and obtuse marginal branch of the circumflex endarterectomy. The patient's mitral valve intraopera tively was noted to be grossly diseased and therefore the patient underwent tissue valve Medtr[employer] mitral valve replacement. Patient postoperatively remains sedated. Patient did have blood sugar of 200. The patient's chemistry done on 03/09/2017 revealed blood glucose of 110. The patient's medi cation list prior to admission is not available. The patient, however, postoperatively did develop elevated blood sugar for which patient is currently on insulin drip. We will obtain hemoglobin A1c. The patient had a white count of 6000. Today it has gone down to 17.2. Patient had a low-grade t emperature. No reported vomiting, no reported chills. The patient is arousable. REVIEW OF SYSTEMS: No reported hematuria. Chest tube is draining well. The rest of the review of systems could not be obtained. PAST MEDICAL HISTORY: As stated above. ALLERGIES: NONE. SOCIAL HISTORY, FAMILY AND MEDICATION LIST: Could not be obtained. PHYSICAL EXAMINATION: GENERAL: The revealed patient is sedated. VITAL SIGNS: Temperature 100.5, pulse 97, respirations 22, blood pressure 112/67, O2 saturation 100 % on FIO2 40%. Patient is currently on assist control. HEENT: Conjunctivae and lids normal. Nose and ears normal externally. NECK: No mass. CHEST: Diminished air entry at bases. CARDIOVASCULAR: S1, S2 normal. Regular rate and rhythm. ABDOMEN: Soft, nondistended. EXTREMITIES: No leg edema. Pedal pulses could not be felt clinically, although according to nasrin mcwilliams's RN with Doppler, he could hear pedal pulses. NEUROLOGIC: The patient is currently sedated. SKIN: Without acute rash. LABORATORY DATA: WBC 17.2, hemoglobin 12.6, platelet 113. Sodium 136, potassium 5.9, BUN 19, creat inine 0.9, glucose 140, calcium 8.3, magnesium 2.2. Chest x-ray done this morning revealed no resid ual pneumothorax and hyperexpanded clear lungs. IMPRESSION: 1. Multivessel coronary artery disease, status post coronary artery bypass graft and also mitral va lve replacement. 2. Questionable history of diabetes. 3. Postoperative respiratory failure. 4. Incomplete data. PLAN: Patient will be is currently in the ICU and is currently under sedation on Brian-Synephrine. T he patient has been started on IV cefazolin as per protocol. Patient is also on Milrinone. We will notify Dr. Alvarado to follow him up from cardiac standpoint. We will continue to monitor his platel et count and renal function. Further recommendation will depend upon patient's hospital course. Th e patient's postoperative respiratory failure is being managed by Dr. Valencia. The plan is discussed with nursing staff. We will discuss with the family when available. Dictated By: RUBI WEINER/CONCEPCION Conf#: [id number] DID#: [id number]
[2017-03-30 18:10] LABS: CREATININE 0.85 mg/dl (0.61-1.24); MAGNESIUM 2.1 mg/dl (1.7-2.5); POTASSIUM 4.8 mmol/L (3.5-5.1)
[2017-03-30] MEDS ORDERED: CALCIUM GLUCONATE 10% 1 GM in SOD CHLORIDE 0.9% 100 ML IVPB ONE (18:30)
[2017-03-30] MEDS: ALBUMIN HUMAN 5% 250 ML IV SCH ×2 (23:05→23:58)
[2017-03-30 23:16] LABS: MAGNESIUM 1.9 mg/dl (1.7-2.5); POTASSIUM 4.9 mmol/L (3.5-5.1)
[2017-03-31] VITALS (102 sets, daily range): BP systolic 56–141; BP diastolic 19–63; PULSE 75–108; RESP 22–29; TEMP 99.8–101
[2017-03-31] MEDS: ACCU-CHEK XX SCH ×24 (00:30→23:30)
[2017-03-31] MEDS: MAGNESIUM SULFATE 1 GM/D5W 100 ML IVPB PRN (00:52)
[2017-03-31] MEDS: INSULIN HUMAN REGULAR 100 UNIT in SOD CHLORIDE 0.9% 99 ML IV SCH ×3 (02:57→20:34)
[2017-03-31] MEDS: PHENYLephrine 40 MG in DEXTROSE 5% 496 ML IV SCH (04:00)
[2017-03-31] MEDS ORDERED: NACL 3% FOR INHALATION 15 ML NEBU NEB ONE (04:00)
[2017-03-31 04:01] LABS: ADD SCAN DIFF NO
[2017-03-31 04:02] LABS: ABNORMAL IP MESSAGE 1; HEMATOCRIT 27.7 % (42.0-52.0); HEMOGLOBIN 9.6 g/dl (14.0-18.0); MEAN CORPUSCULAR HEMOGLOBIN 31.4 pg (29.0-33.0); MEAN CORPUSCULAR HGB CONC 34.7 g/dl (32.0-37.0); MEAN CORPUSCULAR VOLUME 90.5 fl (82.0-101.0); MEAN PLATELET VOLUME 13.1 fl (7.4-10.4); PLATELET COUNT 42 10^3/UL (140-415); RED BLOOD COUNT 3.06 10^6/ul (4.70-6.10); RED CELL DISTRIBUTION WIDTH 15.2 % (11.5-14.5); WHITE BLOOD COUNT 18.7 10^3/ul (4.8-10.8)
[2017-03-31 04:42] LABS: POTASSIUM 4.9 mmol/L (3.5-5.1)
[2017-03-31 04:43] LABS: CREATININE 0.83 mg/dl (0.61-1.24)
[2017-03-31 04:44] LABS: ALBUMIN/GLOBULIN RATIO 1.25; BILIRUBIN,INDIRECT 0.5 mg/dl (0-1.1); BILIRUBIN,TOTAL 0.5 mg/dl (0.2-1.3); CALCIUM 7.8 mg/dl (8.4-10.2); CHOL/HDL RATIO 3.8 RATIO; TOTAL PROTEIN 5.4 g/dl (6.1-8.1)
[2017-03-31 05:47] LABS: MODE VENT - AC; MetHgb Mixed Venous 0.4 %; Mixed Venous COHb 0.3 %; Mixed Venous Fraction OxyHgb 58.1 %; Mixed Venous Oxygen Sat 58.5 mmHG (65.0-75.0); Mixed Venous Total Hemglobin 9.7 g/dl; Sample Type BLMV
[2017-03-31] MEDS: PANTOPRAZOLE 40 MG INJ IV SCH (06:26)
--- NOTE | 2017-03-31 07:24 | RADRPT ---
PROCEDURE: Chest Radiograph. CLINICAL INDICATION: Chest tube TECHNIQUE: Single frontal chest radiograph. COMPARISON: Chest radiograph 03/30/2017 FINDINGS: Study is limited as the right costophrenic angle is clipped from the film.. The patient is status p ost sternotomy. An endotracheal tube remains in stable position. A right internal jugular line wit h associated Eunice-Sonia catheter is seen with the distal tip in the region of the pulmonary outflow t ract. Mediastinal drains and bilateral chest tubes appear unchanged. There is no pneumothorax.. The lungs are grossly clear.. The bones are intact. IMPRESSION: 1. Stable radiographic appearance of chest compared to 03/30/2017. RPTAT: KK .Harlan Peres MD, MD Date Time Electronically viewed and signed by .Harlan Peres MD, on 03/31/2017 07:24 .B/
[2017-03-31] MEDS: HYDROmorphONE 1 MG/ML SYG IV PRN ×3 (07:41→14:38)
[2017-03-31] MEDS: LORAZEPAM 2 MG INJ IV PRN ×2 (07:41→17:03)
[2017-03-31] MEDS: DEXTROSE 5%-0.9% NACL 1,000 ML IV SCH (07:42)
[2017-03-31] MEDS ORDERED: CEFAZOLIN 1 GM/50 ML (PMX) 50 ML IVPB ONE (08:00)
[2017-03-31] MEDS ORDERED: CALCIUM GLUCONATE 10% 2 GM in SOD CHLORIDE 0.9% 100 ML IVPB ONE (08:00)
--- NOTE | 2017-03-31 10:33 | CONS ---
Date/Time of Note Date/Time of Note DATE: 03/31/17 TIME: 10:30 Consult Date/Type/Reason Admit Date/Time March 29, 2017 at 09:30 Initial Consult Date 03/30/17 Type of Consultation: Pulmonary/critical care Subjective Continues mechanical ventilation Intra-aortic balloon pump one-to-one ratio Continues vasopressor support Follows commands with decrease sedation Cardiac index 2.1 with an SPO2 of 60 Decreased output from chest tubes Objective Vital Signs Date Time Temp Pulse Resp B/P Pulse Ox O2 Delivery O2 Flow Rate FiO2 03/31/17 09:15 99.8 90 24 123/53 100 03/31/17 08:00 40 03/29/17 10:15 Room Air Intake and Output 03/30/17 03/30/17 03/31/17 15:00 23:00 07:00 Intake Total 2655.9 ml 1980.006 ml 1794.0 ml Output Total 732 ml 606 ml 459 ml Balance 1923.9 ml 1374.006 ml 1335.0 ml Exam PHYSICAL EXAMINATION GENERAL: Elderly gentleman, intubated on mechanical ventilation, opens eyes and appears somewhat agitated. Orally intubated. VITAL SIGNS: see below. HEENT: Pupils equal, round, and reactive to light. CARDIAC: S1, S2, 1/6 systolic ejection murmur CHEST: Diminished air entry bilaterally. ABDOMEN: Mildly distended. Bowel sounds present no guarding or rebound EXTREMITIES: No cyanosis, clubbing edema +1 NEUROLOGIC: Generalized weakness Results/Medications Result Diagram: 03/31/17 0345 03/31/17 0345 Results 24 hrs Laboratory Tests Test 03/30/17 10:48 03/30/17 13:13 03/30/17 14:19 03/30/17 15:47 Sodium Level 136 Potassium Level 5.9 H Chloride Level 106 Carbon Dioxide Level 24 Anion Gap 12 Blood Urea Nitrogen 19 Creatinine 0.97 Glucose Level 224 H Calcium Level 8.3 L Magnesium Level 2.2 Bedside Glucose 155 140 104 Test 03/30/17 16:53 03/30/17 17:00 03/30/17 18:49 03/30/17 20:30 Bedside Glucose 112 123 124 Sodium Level 134 L Potassium Level 4.8 Chloride Level 103 Carbon Dioxide Level 28 Anion Gap 8 Blood Urea Nitrogen 17 Creatinine 0.85 Glucose Level 135 # Calcium Level 8.0 L Magnesium Level 2.1 Test 03/30/17 22:30 03/30/17 22:50 03/31/17 01:22 03/31/17 02:53 Hemoglobin 10.8 L Hematocrit 31.2 L Potassium Level 4.9 Bedside Glucose 116 125 123 Magnesium Level 1.9 Test 03/31/17 03:45 03/31/17 05:30 03/31/17 06:39 03/31/17 07:51 White Blood Count 18.7 H Red Blood Count 3.06 #L Hemoglobin 9.6 L Hematocrit 27.7 L Mean Corpuscular Volume 90.5 Mean Corpuscular Hemoglobin 31.4 Mean Corpuscular Hemoglobin Concent 34.7 Red Cell Distribution Width 15.2 H Platelet Count 42 #L Mean Platelet Volume 13.1 H Sodium Level 131 L Potassium Level 4.9 Chloride Level 97 Carbon Dioxide Level 27 Anion Gap 12 Blood Urea Nitrogen 19 Creatinine 0.83 Glucose Level 125 Hemoglobin A1c 5.4 Calcium Level 7.8 L Magnesium Level 2.6 H Total Bilirubin 0.5 Direct Bilirubin 0.00 Indirect Bilirubin 0.5 Aspartate Amino Transf (AST/SGOT) 93 H Alanine Aminotransferase (ALT/SGPT) 44 Alkaline Phosphatase 37 L Total Protein 5.4 L Albumin 3.0 L Globulin 2.40 Albumin/Globulin Ratio 1.25 Triglycerides Level 179 H Cholesterol Level 84 L LDL Cholesterol, Calculated 26 HDL Cholesterol 22 L Cholesterol/HDL Ratio 3.8 Blood Gas Specimen Source BLMV Arterial Blood Date Drawn 03/31/2017 5:35:06 AM Arterial Blood Gas Puncture Site A-Line Lane Test N/A Mixed Venous Blood PO2 30.4 Mixed Venous Blood O2 Saturation 58.5 L Mixed Venous Blood Total Hemoglobin 9.7 Mixed Venous Blood Oxyhemoglobin 58.1 Mixed Venous Bld Carboxyhemoglobin 0.3 Mixed Venous Blood Methemoglobin 0.4 Blood Gas Temperature 37.0 Blood Gas Respiration Rate 22.0 Blood Gas Actual Respiration Rate 27 Blood Gas Modality VENT - AC FiO2 40.0 Blood Gas Tidal Volume 550.0 Blood Gas Low PEEP Setting 5.0 Blood Gas Inspiratory Pressure 25.0 Blood Gas Notified Whom AA Blood Gas Notified Time 03/31/2017 5:46:38 AM Bedside Glucose 121 131 Test 03/31/17 10:10 Bedside Glucose 117 Medications Current Medications Phenylephrine HCl/ Dextrose (Brian-Syneph/D5W) 500 ml @ 75 mls/hr TITRATE IV Last administered on 03/31/17 04:00; Admin Dose 75 MLS/HR; Start 03/30/17 at 06 :00 Acetaminophen 650 mg 650 mg Q3H PRN [place] ELEVATED TEMPERATURE Last administered on 03/30/17 20:28; Admin Dose 650 MG; Start 03/29/17 at 23:30 Magnesium Sulfate/ Dextrose (Magnesium Sulfate 1 Gm/D5W) 100 ml @ 100 mls/hr PRN PRN IVPB PENDING LAB VALUE Last administered on 03/31/17 00:52; Admin Dose 100 MLS/HR; Start 03/29/17 at 23:30 Hydromorphone HCl (Dilaudid) 0.2 mg Q2H PRN IV PAIN Last administered on 01:39; Admin Dose 0.2 MG; Start 03/30/17 at 00:30 Hydromorphone HCl (Dilaudid) 0.4 mg Q2H PRN IV PAIN; Start 03/30/17 at 00:30 Hydromorphone HCl (Dilaudid) 0.2 mg Q15M PRN IV PAIN; Start 03/30/17 at 02:00 Hydromorphone HCl 0.4 mg 0.4 mg Q15M PRN IV PAIN Last administered on 07:41; Admin Dose 0.4 MG; Start 03/30/17 at 02:00 Milrinone Lactate 100 ml @ 7.526 mls/ hr TITRATE IV Last administered on 23:31; Admin Dose 5.5 MLS/HR; Start 03/30/17 at 02:05 Propofol (Diprivan) 100 ml @ 2.007 mls/ hr Q12H IV Last administered on 00:00; Admin Dose 2 MLS/HR; Start 03/30/17 at 02:20 Pantoprazole 40 mg 40 mg DAILY@06 IV Last administered on 03/31/17 06:26; Admin Dose 40 MG; Start 03/31/17 at 06:00 Albumin Human 250 ml @ 250 mls/hr PRN PRN IV NOTE Last administered on 03:01; Admin Dose 250 MLS/HR; Start 03/30/17 at 09:00 Miscellaneous Information 1 ea NOTE XX ; Start 03/30/17 at 09:30 Glucose (Glutose) 15 gm Q15M PRN PO DECREASED GLUCOSE; Start 03/30/17 at 09:30 Glucose (Glutose) 22.5 gm Q15M PRN PO DECREASED GLUCOSE; Start 03/30/17 at 09: 30 Dextrose (D50w Syringe) 25 ml Q15M PRN IV DECREASED GLUCOSE; Start 03/30/17 at 09:30 Dextrose (D50w Syringe) 50 ml Q15M PRN IV DECREASED GLUCOSE; Start 03/30/17 at 09:30 Glucagon (Glucagen) 1 mg Q15M PRN IM DECREASED GLUCOSE; Start 03/30/17 at 09:30 Glucose (Glutose) 15 gm Q15M PRN BUCCAL DECREASED GLUCOSE; Start 03/30/17 at 09 :30 Diagnostic Test (Pha) (Accu-Chek) 1 ea Q1H XX Last administered on 03/31/17 10 :08; Admin Dose 1 EA; Start 03/30/17 at 09:30 Dextrose (D50w Syringe) 25 ml Q15M PRN IV Till BS 80 mg/dL or above x2; Start 03/30/17 at 09:30 Dextrose (D50w Syringe) 50 ml Q15M PRN IV Till BS 80 mg/dL or above x2; Start 03/30/17 at 09:30 Lorazepam 2 mg 2 mg Q2H PRN IV AGITATION/ANXIETY Last administered on 07:41; Admin Dose 2 MG; Start 03/30/17 at 12:00 Dextrose/Sodium Chloride (D5-NS) 1,000 ml @ 60 mls/hr [id number] IV Last administered on 03/31/17 07:42; Admin Dose 60 MLS/HR; Start 03/31/17 at 07:30 Assessment/Plan Chief Complaint/Hosp Course Assessment 1. Status post 5 vessel coronary artery bypass graft surgery and mitral valve replacement 2. Hypoxemic respiratory failure 3. Pulmonary edema radiographically 4. Leukocytosis concerning for possible line sepsis versus pneumonia 5. Encephalopathy toxic metabolic 6. Shock likely component of septic and cardiogenic Plan 1. Remove intra-aortic balloon pump per thoracic surgery 2. Decrease vasopressors as tolerated 3. Broaden antibiotics consider ID consult 4. Continue tube feeding 5. DVT GI prophylaxis Disposition Continue ICU care Problems: MUNDO JONES MD, FCCP March 31, 2017 10:33
--- NOTE | 2017-03-31 10:35 | RADRPT ---
Vent Rate: 90 bpm RR Interval: 0 msec [place] Interval: 142 msec QRS Duration: 106 msec QT Interval: 400 msec QTC Interval: 489 msec P-R-T [place]: 37 - 59 - 61 degrees Normal sinus rhythm Incomplete right bundle branch block Anteroseptal infarct , age undetermined Abnormal ECG Electronically Signed By: Heath Maya [id number]
[2017-03-31 11:02] LABS: EOSINOPHILS # 0.2 10^3/ul (0.0-0.5); LYMPHOCYTES # 2.6 10^3/ul (0.8-2.9); MONOCYTE # 0.7 10^3/ul (0.3-0.9); NEUTROPHIL # 13.1 10^3/ul (1.6-7.5)
--- NOTE | 2017-03-31 12:10 | PN ---
Date/Time of Note Date/Time of Note DATE: 03/31/17 TIME: 11:41 Assessment/Plan VTE Prophylaxis VTE Prophylaxis Intervention: other Lines/Catheters IV Catheter Type (from Nrs): CORDIS Urinary Cath still in place: Yes Reason Cath still needed: urinary retention Assessment/Plan Assessment/Plan - Leukocytosis- - ID consult - Dr Gaines notified. - Hypermagnesemia- - cont to monitor - per vascular sx - Multivessel coronary artery disease, status post coronary artery bypass graft and also mitral valve replacement. - ICU MONITORING - per dr Alvarado in cardiology -Questionable history of diabetes Hb AIC- 5.4 - Postoperative respiratory failure. -. Incomplete data. sedated, intubated, - at present , when awake- follows commands per staff. DRIPS - insulin, Propofol, D5W. Na 131 today, K -wnl. WBC elevated, febrile- will get ID consult- Dr Gaines notified, all lines - swan gauge cath, ET tube, x4 chest tubes, x2 pacer lines, rt groin balloon, rt groin central line, fc intact. dw staff Subjective 24 Hr Interval Summary Free Text/Dictation sedated, intubated, - at present , when awake- follows commands per staff. DRIPS - insulin, Propofol, D5W. Na 131 today, K -wnl. WBC elevated, febrile- will get ID consult- Dr Gaines notified, all lines - swan gauge cath, ET tube, x4 chest tubes, x2 pacer lines, rt groin balloon, rt groin central line, fc intact. dw staff Constitutional: requiring IVF, requiring O2 Exam/Review of Systems Vital Signs Vitals Vital Signs Date Time Temp Pulse Resp B/P Pulse Ox O2 Delivery O2 Flow Rate FiO2 03/31/17 11:00 100.1 95 23 105/47 99 03/31/17 08:00 40 03/29/17 10:15 Room Air Intake and Output 03/30/17 03/30/17 03/31/17 15:00 23:00 07:00 Intake Total 2655.9 ml 1980.006 ml 1794.0 ml Output Total 732 ml 606 ml 459 ml Balance 1923.9 ml 1374.006 ml 1335.0 ml Exam Constitutional: other (SEDATED) Eyes: nl sclera Respiratory: diminished breath sounds Cardiovascular: nl pulses Gastrointestinal: non-tender, soft Genitourinary - Male: other (FC- yellow /clear urine) Musculoskeletal: nl extremities to inspection Neurological: other (sedated) Results Result Diagram: 03/31/17 0345 03/31/17 0345 Results 24 hrs Laboratory Tests Test 03/30/17 13:13 03/30/17 14:19 03/30/17 15:47 03/30/17 16:53 Bedside Glucose 155 140 104 112 Test 03/30/17 17:00 03/30/17 18:49 03/30/17 20:30 03/30/17 22:30 Sodium Level 134 L Potassium Level 4.8 Chloride Level 103 Carbon Dioxide Level 28 Anion Gap 8 Blood Urea Nitrogen 17 Creatinine 0.85 Glucose Level 135 # Calcium Level 8.0 L Magnesium Level 2.1 Bedside Glucose 123 124 Hemoglobin 10.8 L Hematocrit 31.2 L Test 03/30/17 22:50 03/31/17 01:22 03/31/17 02:53 03/31/17 03:45 Potassium Level 4.9 4.9 Bedside Glucose 116 125 123 Magnesium Level 1.9 2.6 H White Blood Count 18.7 H Red Blood Count 3.06 #L Hemoglobin 9.6 L Hematocrit 27.7 L Mean Corpuscular Volume 90.5 Mean Corpuscular Hemoglobin 31.4 Mean Corpuscular Hemoglobin Concent 34.7 Red Cell Distribution Width 15.2 H Platelet Count 42 #L Mean Platelet Volume 13.1 H Neutrophils % 70.0 Band Neutrophils % 11.0 H Lymphocytes % 14.0 L Monocytes % 4.0 Eosinophils % 1.0 Neutrophils # 13.1 H Lymphocytes # 2.6 Monocytes # 0.7 Eosinophils # 0.2 Large Platelets FEW Giant Platelets RARE Sodium Level 131 L Chloride Level 97 Carbon Dioxide Level 27 Anion Gap 12 Blood Urea Nitrogen 19 Creatinine 0.83 Glucose Level 125 Hemoglobin A1c 5.4 Calcium Level 7.8 L Total Bilirubin 0.5 Direct Bilirubin 0.00 Indirect Bilirubin 0.5 Aspartate Amino Transf (AST/SGOT) 93 H Alanine Aminotransferase (ALT/SGPT) 44 Alkaline Phosphatase 37 L Total Protein 5.4 L Albumin 3.0 L Globulin 2.40 Albumin/Globulin Ratio 1.25 Triglycerides Level 179 H Cholesterol Level 84 L LDL Cholesterol, Calculated 26 HDL Cholesterol 22 L Cholesterol/HDL Ratio 3.8 Test 03/31/17 05:30 03/31/17 06:39 03/31/17 07:51 03/31/17 10:10 Blood Gas Specimen Source BLMV Arterial Blood Date Drawn 03/31/2017 5:35:06 AM Arterial Blood Gas Puncture Site A-Line Lane Test N/A Mixed Venous Blood PO2 30.4 Mixed Venous Blood O2 Saturation 58.5 L Mixed Venous Blood Total Hemoglobin 9.7 Mixed Venous Blood Oxyhemoglobin 58.1 Mixed Venous Bld Carboxyhemoglobin 0.3 Mixed Venous Blood Methemoglobin 0.4 Blood Gas Temperature 37.0 Blood Gas Respiration Rate 22.0 Blood Gas Actual Respiration Rate 27 Blood Gas Modality VENT - AC FiO2 40.0 Blood Gas Tidal Volume 550.0 Blood Gas Low PEEP Setting 5.0 Blood Gas Inspiratory Pressure 25.0 Blood Gas Notified Whom AA Blood Gas Notified Time 03/31/2017 5:46:38 AM Bedside Glucose 121 131 117 Medications Medications Current Medications Phenylephrine HCl/ Dextrose (Brian-Syneph/D5W) 500 ml @ 75 mls/hr TITRATE IV Last administered on 03/31/17 04:00; Admin Dose 75 MLS/HR; Start 03/30/17 at 06 :00 Acetaminophen 650 mg 650 mg Q3H PRN [place] ELEVATED TEMPERATURE Last administered on 03/30/17 20:28; Admin Dose 650 MG; Start 03/29/17 at 23:30 Magnesium Sulfate/ Dextrose (Magnesium Sulfate 1 Gm/D5W) 100 ml @ 100 mls/hr PRN PRN IVPB PENDING LAB VALUE Last administered on 03/31/17 00:52; Admin Dose 100 MLS/HR; Start 03/29/17 at 23:30 Hydromorphone HCl (Dilaudid) 0.2 mg Q2H PRN IV PAIN Last administered on 01:39; Admin Dose 0.2 MG; Start 03/30/17 at 00:30 Hydromorphone HCl (Dilaudid) 0.4 mg Q2H PRN IV PAIN; Start 03/30/17 at 00:30 Hydromorphone HCl (Dilaudid) 0.2 mg Q15M PRN IV PAIN; Start 03/30/17 at 02:00 Hydromorphone HCl 0.4 mg 0.4 mg Q15M PRN IV PAIN Last administered on 07:41; Admin Dose 0.4 MG; Start 03/30/17 at 02:00 Milrinone Lactate 100 ml @ 7.526 mls/ hr TITRATE IV Last administered on 23:31; Admin Dose 5.5 MLS/HR; Start 03/30/17 at 02:05 Propofol (Diprivan) 100 ml @ 2.007 mls/ hr Q12H IV Last administered on 00:00; Admin Dose 2 MLS/HR; Start 03/30/17 at 02:20 Pantoprazole 40 mg 40 mg DAILY@06 IV Last administered on 03/31/17 06:26; Admin Dose 40 MG; Start 03/31/17 at 06:00 Albumin Human 250 ml @ 250 mls/hr PRN PRN IV NOTE Last administered on 03:01; Admin Dose 250 MLS/HR; Start 03/30/17 at 09:00 Miscellaneous Information 1 ea NOTE XX ; Start 03/30/17 at 09:30 Glucose (Glutose) 15 gm Q15M PRN PO DECREASED GLUCOSE; Start 03/30/17 at 09:30 Glucose (Glutose) 22.5 gm Q15M PRN PO DECREASED GLUCOSE; Start 03/30/17 at 09: 30 Dextrose (D50w Syringe) 25 ml Q15M PRN IV DECREASED GLUCOSE; Start 03/30/17 at 09:30 Dextrose (D50w Syringe) 50 ml Q15M PRN IV DECREASED GLUCOSE; Start 03/30/17 at 09:30 Glucagon (Glucagen) 1 mg Q15M PRN IM DECREASED GLUCOSE; Start 03/30/17 at 09:30 Glucose (Glutose) 15 gm Q15M PRN BUCCAL DECREASED GLUCOSE; Start 03/30/17 at 09 :30 Diagnostic Test (Pha) (Accu-Chek) 1 ea Q1H XX Last administered on 03/31/17 10 :32; Admin Dose 1 EA; Start 03/30/17 at 09:30 Dextrose (D50w Syringe) 25 ml Q15M PRN IV Till BS 80 mg/dL or above x2; Start 03/30/17 at 09:30 Dextrose (D50w Syringe) 50 ml Q15M PRN IV Till BS 80 mg/dL or above x2; Start 5/10/17 at 09:30 Lorazepam 2 mg 2 mg Q2H PRN IV AGITATION/ANXIETY Last administered on 07:41; Admin Dose 2 MG; Start 03/30/17 at 12:00 Dextrose/Sodium Chloride 1,000 ml @ 60 mls/hr [id number] IV Last administered on 03/31/17 07:42; Admin Dose 60 MLS/HR; Start 03/31/17 at 07:30 Cefepime HCl (Maxipime 2gm/50 ml (Pmx)) 50 ml @ 100 mls/hr Q12 IVPB ; Start 10/07 at 12:00 NADINE NELSON March 31, 2017 11:53
--- NOTE | 2017-03-31 12:46 | QN ---
Documentation Comment ID consult requested by Akil THOMAS. Dr. Gaines will see pt shortly. VIRY CLEMENTS NP March 31, 2017 12:46
[2017-03-31] MEDS: CEFEPIME 2GM/50 ML (PMX) 50 ML IVPB SCH ×2 (13:23→20:31)
[2017-03-31] MEDS: PROPOFOL 100 ML IV SCH ×3 (14:20→20:30)
[2017-03-31] MEDS: ACETAMINOPHEN 650 MG SUPP PR PRN ×2 (14:50→22:49)
--- NOTE | 2017-03-31 16:56 | CONS ---
Date/Time of Note Date/Time of Note DATE: 03/31/17 TIME: 16:52 Assessment/Plan Assessment/Plan Additional Assessment/Plan Coronary artery disease status post CABG 5 Status post mitral valve replacement Respiratory failure ITP -Patient currently on minimal IV pressor. Would hold off initiation of beta- tyrone at the current time. Given patient's thrombocytopenia, would not start aspirin now. Patient being weaned off IV pressor and hopefully intra-aortic balloon pump to be removed within the next 24 hours if continues to improve. Would start statin therapy. Consider starting enteric feeding. Consultation Date/Type/Reason Admit Date/Time March 29, 2017 at 09:30 Type of Consultation: cv Reason for Consultation Coronary artery disease status post CABG Hx of Present Illness This is a 61-year-old male with past medical history of obstructive coronary artery disease, mitral valve regurgitation who underwent coronary artery bypass grafting 5 and mitral valve replacement on 03/29/2017. Patient remains intubated with balloon pump. Currently on minimal IV pressor. Patient sedated and intubated unable to give history. Unable to be performed at the current time given patient intubated and sedated Constitutional: requiring IVF, requiring O2 Past Medical History Mitral valve regurgitation Medical History: coronary artery disease, high cholesterol, hypertension Past Surgical History Past Surgical Hx: coronary bypass surgery Family History Significant Family History: no pertinent family hx Social History Smoking Status: Current every day smoker Exam/Review of Systems Vital Signs Vitals Vital Signs Date Time Temp Pulse Resp B/P Pulse Ox O2 Delivery O2 Flow Rate FiO2 03/31/17 16:00 103 03/31/17 15:00 100.5 22 113/51 99 03/31/17 13:30 40 03/29/17 10:15 Room Air Intake and Output 03/30/17 03/30/17 03/31/17 15:00 23:00 07:00 Intake Total 2655.9 ml 1980.006 ml 1794.0 ml Output Total 732 ml 606 ml 459 ml Balance 1923.9 ml 1374.006 ml 1335.0 ml Exam Intubated and sedated, intimately follows commands, no apparent distress Head: normocephalic ENMT: intubated Respiratory: other (Coarse breath sounds bilaterally, no wheezing) Cardiovascular: other (S1-S2 heard), regular rate and rhythm, systolic murmur Gastrointestinal: bowel sounds, non-tender, other (No guarding), soft Extremities: edema (Trace), other (Bandage lower extremity) Results Result Diagram: 03/31/17 0345 03/31/17 0345 Results 24 hrs Laboratory Tests Test 03/30/17 16:53 03/30/17 17:00 03/30/17 18:49 03/30/17 20:30 Bedside Glucose 112 123 124 Sodium Level 134 L Potassium Level 4.8 Chloride Level 103 Carbon Dioxide Level 28 Anion Gap 8 Blood Urea Nitrogen 17 Creatinine 0.85 Glucose Level 135 # Calcium Level 8.0 L Magnesium Level 2.1 Test 03/30/17 22:30 03/30/17 22:50 03/31/17 01:22 03/31/17 02:53 Hemoglobin 10.8 L Hematocrit 31.2 L Potassium Level 4.9 Bedside Glucose 116 125 123 Magnesium Level 1.9 Test 03/31/17 03:45 03/31/17 05:30 03/31/17 06:39 03/31/17 07:51 White Blood Count 18.7 H Red Blood Count 3.06 #L Hemoglobin 9.6 L Hematocrit 27.7 L Mean Corpuscular Volume 90.5 Mean Corpuscular Hemoglobin 31.4 Mean Corpuscular Hemoglobin Concent 34.7 Red Cell Distribution Width 15.2 H Platelet Count 42 #L Mean Platelet Volume 13.1 H Neutrophils % 70.0 Band Neutrophils % 11.0 H Lymphocytes % 14.0 L Monocytes % 4.0 Eosinophils % 1.0 Neutrophils # 13.1 H Lymphocytes # 2.6 Monocytes # 0.7 Eosinophils # 0.2 Large Platelets FEW Giant Platelets RARE Sodium Level 131 L Potassium Level 4.9 Chloride Level 97 Carbon Dioxide Level 27 Anion Gap 12 Blood Urea Nitrogen 19 Creatinine 0.83 Glucose Level 125 Hemoglobin A1c 5.4 Calcium Level 7.8 L Magnesium Level 2.6 H Total Bilirubin 0.5 Direct Bilirubin 0.00 Indirect Bilirubin 0.5 Aspartate Amino Transf (AST/SGOT) 93 H Alanine Aminotransferase (ALT/SGPT) 44 Alkaline Phosphatase 37 L Total Protein 5.4 L Albumin 3.0 L Globulin 2.40 Albumin/Globulin Ratio 1.25 Triglycerides Level 179 H Cholesterol Level 84 L LDL Cholesterol, Calculated 26 HDL Cholesterol 22 L Cholesterol/HDL Ratio 3.8 Blood Gas Specimen Source BLMV Arterial Blood Date Drawn 03/31/2017 5:35:06 AM Arterial Blood Gas Puncture Site A-Line Lane Test N/A Mixed Venous Blood PO2 30.4 Mixed Venous Blood O2 Saturation 58.5 L Mixed Venous Blood Total Hemoglobin 9.7 Mixed Venous Blood Oxyhemoglobin 58.1 Mixed Venous Bld Carboxyhemoglobin 0.3 Mixed Venous Blood Methemoglobin 0.4 Blood Gas Temperature 37.0 Blood Gas Respiration Rate 22.0 Blood Gas Actual Respiration Rate 27 Blood Gas Modality VENT - AC FiO2 40.0 Blood Gas Tidal Volume 550.0 Blood Gas Low PEEP Setting 5.0 Blood Gas Inspiratory Pressure 25.0 Blood Gas Notified Whom AA Blood Gas Notified Time 03/31/2017 5:46:38 AM Bedside Glucose 121 131 Test 03/31/17 10:10 03/31/17 11:47 03/31/17 15:02 Bedside Glucose 117 114 122 Medications Medications Current Medications Phenylephrine HCl/ Dextrose (Brian-Syneph/D5W) 500 ml @ 75 mls/hr TITRATE IV Last administered on 03/31/17 04:00; Admin Dose 75 MLS/HR; Start 03/30/17 at 06 :00 Acetaminophen 650 mg 650 mg Q3H PRN [place] ELEVATED TEMPERATURE Last administered on 03/31/17 14:50; Admin Dose 650 MG; Start 03/29/17 at 23:30 Magnesium Sulfate/ Dextrose (Magnesium Sulfate 1 Gm/D5W) 100 ml @ 100 mls/hr PRN PRN IVPB PENDING LAB VALUE Last administered on 03/31/17 00:52; Admin Dose 100 MLS/HR; Start 03/29/17 at 23:30 Hydromorphone HCl (Dilaudid) 0.2 mg Q2H PRN IV PAIN Last administered on 01:39; Admin Dose 0.2 MG; Start 03/30/17 at 00:30 Hydromorphone HCl (Dilaudid) 0.4 mg Q2H PRN IV PAIN; Start 03/30/17 at 00:30 Hydromorphone HCl (Dilaudid) 0.2 mg Q15M PRN IV PAIN; Start 03/30/17 at 02:00 Hydromorphone HCl 0.4 mg 0.4 mg Q15M PRN IV PAIN Last administered on 14:38; Admin Dose 0.4 MG; Start 03/30/17 at 02:00 Milrinone Lactate 100 ml @ 7.526 mls/ hr TITRATE IV Last administered on 23:31; Admin Dose 5.5 MLS/HR; Start 03/30/17 at 02:05 Propofol (Diprivan) 100 ml @ 2.007 mls/ hr Q12H IV Last administered on 00:00; Admin Dose 2 MLS/HR; Start 03/30/17 at 02:20 Pantoprazole 40 mg 40 mg DAILY@06 IV Last administered on 03/31/17 06:26; Admin Dose 40 MG; Start 03/31/17 at 06:00 Albumin Human 250 ml @ 250 mls/hr PRN PRN IV NOTE Last administered on 03:01; Admin Dose 250 MLS/HR; Start 03/30/17 at 09:00 Miscellaneous Information 1 ea NOTE XX ; Start 03/30/17 at 09:30 Glucose (Glutose) 15 gm Q15M PRN PO DECREASED GLUCOSE; Start 03/30/17 at 09:30 Glucose (Glutose) 22.5 gm Q15M PRN PO DECREASED GLUCOSE; Start 03/30/17 at 09: 30 Dextrose (D50w Syringe) 25 ml Q15M PRN IV DECREASED GLUCOSE; Start 03/30/17 at 09:30 Dextrose (D50w Syringe) 50 ml Q15M PRN IV DECREASED GLUCOSE; Start 03/30/17 at 09:30 Glucagon (Glucagen) 1 mg Q15M PRN IM DECREASED GLUCOSE; Start 03/30/17 at 09:30 Glucose (Glutose) 15 gm Q15M PRN BUCCAL DECREASED GLUCOSE; Start 03/30/17 at 09 :30 Diagnostic Test (Pha) (Accu-Chek) 1 ea Q1H XX Last administered on 03/31/17 16 :26; Admin Dose 1 EA; Start 03/30/17 at 09:30 Dextrose (D50w Syringe) 25 ml Q15M PRN IV Till BS 80 mg/dL or above x2; Start 03/30/17 at 09:30 Dextrose (D50w Syringe) 50 ml Q15M PRN IV Till BS 80 mg/dL or above x2; Start 03/30/17 at 09:30 Lorazepam 2 mg 2 mg Q2H PRN IV AGITATION/ANXIETY Last administered on 07:41; Admin Dose 2 MG; Start 03/30/17 at 12:00 Dextrose/Sodium Chloride 1,000 ml @ 60 mls/hr [id number] IV Last administered on 03/31/17 07:42; Admin Dose 60 MLS/HR; Start 03/31/17 at 07:30 Cefepime HCl 50 ml @ 100 mls/hr Q12 IVPB Last administered on 03/31/17 13:23 ; Admin Dose 100 MLS/HR; Start 03/31/17 at 12:00 Heparin Sodium/ Sodium Chloride (Heparin 1000 Units/NS (A-Line)) 500 ml @ 3 mls/ hr Q24H ONCE IA Last administered on 03/31/17 15:52; Admin Dose 3 MLS/HR; Start 03/31/17 at 13:00; Stop 04/01/17 at 12:59 Ranulfo Alvarado DO March 31, 2017 16:56
--- NOTE | 2017-03-31 18:41 | PN ---
Date/Time of Note Date/Time of Note DATE: 03/31/17 TIME: 18:40 Assessment/Plan Lines/Catheters IV Catheter Type (from Nrsg): CORDIS Helm in Place (from Nrsg): Yes Assessment/Plan Chief Complaint/Hosp Course SP CABG, MVR hemodynamically stable continue IABP Will DC IABP tomorrow continue CT sxn Problems: Subjective 24 Hr Interval Summary Constitutional: improved Pain Control: mild Exam/Review of Systems Vital Signs Vitals Vital Signs Date Time Temp Pulse Resp B/P Pulse Ox O2 Delivery O2 Flow Rate FiO2 03/31/17 17:30 100.8 101 22 110/50 99 03/31/17 17:30 40 03/29/17 10:15 Room Air Intake and Output 03/30/17 03/30/17 03/31/17 15:00 23:00 07:00 Intake Total 2655.9 ml 1980.006 ml 1794.0 ml Output Total 732 ml 606 ml 459 ml Balance 1923.9 ml 1374.006 ml 1335.0 ml Exam ENMT: mucosa pink and moist, nl external ears & nose, nl lips & teeth, nl nasal mucosa & septum Neck: non-tender, supple Respiratory: clear to auscultation, normal air movement Cardiovascular: nl pulses, regular rate and rhythm Results Result Diagram: 03/31/17 0345 03/31/17 0345 TOMEKA DELEON MD March 31, 2017 18:41
--- NOTE | 2017-03-31 20:16 | CONS ---
Date/Time of Note Date/Time of Note DATE: 03/31/17 TIME: 20:15 Assessment/Plan Assessment/Plan Chief Complaint/Hosp Course kindly asked to consult by Dr. Kay full note to follow Problems: Consultation Date/Type/Reason Admit Date/Time March 29, 2017 at 09:30 Initial Consult Date 03/30/17 Type of Consultation: cv Exam/Review of Systems Vital Signs Vitals Vital Signs Date Time Temp Pulse Resp B/P Pulse Ox O2 Delivery O2 Flow Rate FiO2 03/31/17 19:00 100.9 102 22 115/51 100 03/31/17 17:30 40 03/29/17 10:15 Room Air Intake and Output 03/30/17 03/30/17 03/31/17 15:00 23:00 07:00 Intake Total 2655.9 ml 1980.006 ml 1794.0 ml Output Total 732 ml 606 ml 459 ml Balance 1923.9 ml 1374.006 ml 1335.0 ml Results Result Diagram: 03/31/17 0345 03/31/17 0345 Results 24 hrs Laboratory Tests Test 03/30/17 20:30 03/30/17 22:30 03/30/17 22:50 03/31/17 01:22 Bedside Glucose 124 116 125 Hemoglobin 10.8 L Hematocrit 31.2 L Potassium Level 4.9 Magnesium Level 1.9 Test 03/31/17 02:53 03/31/17 03:45 03/31/17 05:30 03/31/17 06:39 Bedside Glucose 123 121 White Blood Count 18.7 H Red Blood Count 3.06 #L Hemoglobin 9.6 L Hematocrit 27.7 L Mean Corpuscular Volume 90.5 Mean Corpuscular Hemoglobin 31.4 Mean Corpuscular Hemoglobin Concent 34.7 Red Cell Distribution Width 15.2 H Platelet Count 42 #L Mean Platelet Volume 13.1 H Neutrophils % 70.0 Band Neutrophils % 11.0 H Lymphocytes % 14.0 L Monocytes % 4.0 Eosinophils % 1.0 Neutrophils # 13.1 H Lymphocytes # 2.6 Monocytes # 0.7 Eosinophils # 0.2 Large Platelets FEW Giant Platelets RARE Sodium Level 131 L Potassium Level 4.9 Chloride Level 97 Carbon Dioxide Level 27 Anion Gap 12 Blood Urea Nitrogen 19 Creatinine 0.83 Glucose Level 125 Hemoglobin A1c 5.4 Calcium Level 7.8 L Magnesium Level 2.6 H Total Bilirubin 0.5 Direct Bilirubin 0.00 Indirect Bilirubin 0.5 Aspartate Amino Transf (AST/SGOT) 93 H Alanine Aminotransferase (ALT/SGPT) 44 Alkaline Phosphatase 37 L Total Protein 5.4 L Albumin 3.0 L Globulin 2.40 Albumin/Globulin Ratio 1.25 Triglycerides Level 179 H Cholesterol Level 84 L LDL Cholesterol, Calculated 26 HDL Cholesterol 22 L Cholesterol/HDL Ratio 3.8 Blood Gas Specimen Source BLMV Arterial Blood Date Drawn 03/31/2017 5:35:06 AM Arterial Blood Gas Puncture Site A-Line Lane Test N/A Mixed Venous Blood PO2 30.4 Mixed Venous Blood O2 Saturation 58.5 L Mixed Venous Blood Total Hemoglobin 9.7 Mixed Venous Blood Oxyhemoglobin 58.1 Mixed Venous Bld Carboxyhemoglobin 0.3 Mixed Venous Blood Methemoglobin 0.4 Blood Gas Temperature 37.0 Blood Gas Respiration Rate 22.0 Blood Gas Actual Respiration Rate 27 Blood Gas Modality VENT - AC FiO2 40.0 Blood Gas Tidal Volume 550.0 Blood Gas Low PEEP Setting 5.0 Blood Gas Inspiratory Pressure 25.0 Blood Gas Notified Whom AA Blood Gas Notified Time 03/31/2017 5:46:38 AM Test 03/31/17 07:51 03/31/17 10:10 03/31/17 11:47 03/31/17 15:02 Bedside Glucose 131 117 114 122 Test 03/31/17 17:13 03/31/17 18:56 Bedside Glucose 124 119 Medications Medications Current Medications Phenylephrine HCl/ Dextrose (Brian-Syneph/D5W) 500 ml @ 75 mls/hr TITRATE IV Last administered on 03/31/17 04:00; Admin Dose 75 MLS/HR; Start 03/30/17 at 06 :00 Acetaminophen 650 mg 650 mg Q3H PRN [place] ELEVATED TEMPERATURE Last administered on 03/31/17 14:50; Admin Dose 650 MG; Start 03/29/17 at 23:30 Magnesium Sulfate/ Dextrose (Magnesium Sulfate 1 Gm/D5W) 100 ml @ 100 mls/hr PRN PRN IVPB PENDING LAB VALUE Last administered on 03/31/17 00:52; Admin Dose 100 MLS/HR; Start 03/29/17 at 23:30 Hydromorphone HCl (Dilaudid) 0.2 mg Q2H PRN IV PAIN Last administered on 01:39; Admin Dose 0.2 MG; Start 03/30/17 at 00:30 Hydromorphone HCl (Dilaudid) 0.4 mg Q2H PRN IV PAIN; Start 03/30/17 at 00:30 Hydromorphone HCl (Dilaudid) 0.2 mg Q15M PRN IV PAIN; Start 03/30/17 at 02:00 Hydromorphone HCl 0.4 mg 0.4 mg Q15M PRN IV PAIN Last administered on 14:38; Admin Dose 0.4 MG; Start 03/30/17 at 02:00 Milrinone Lactate 100 ml @ 7.526 mls/ hr TITRATE IV Last administered on 23:31; Admin Dose 5.5 MLS/HR; Start 03/30/17 at 02:05 Propofol (Diprivan) 100 ml @ 2.007 mls/ hr Q12H IV Last administered on 00:00; Admin Dose 2 MLS/HR; Start 03/30/17 at 02:20 Pantoprazole 40 mg 40 mg DAILY@06 IV Last administered on 03/31/17 06:26; Admin Dose 40 MG; Start 03/31/17 at 06:00 Albumin Human 250 ml @ 250 mls/hr PRN PRN IV NOTE Last administered on 03:01; Admin Dose 250 MLS/HR; Start 03/30/17 at 09:00 Miscellaneous Information 1 ea NOTE XX ; Start 03/30/17 at 09:30 Glucose (Glutose) 15 gm Q15M PRN PO DECREASED GLUCOSE; Start 03/30/17 at 09:30 Glucose (Glutose) 22.5 gm Q15M PRN PO DECREASED GLUCOSE; Start 03/30/17 at 09: 30 Dextrose (D50w Syringe) 25 ml Q15M PRN IV DECREASED GLUCOSE; Start 03/30/17 at 09:30 Dextrose (D50w Syringe) 50 ml Q15M PRN IV DECREASED GLUCOSE; Start 03/30/17 at 09:30 Glucagon (Glucagen) 1 mg Q15M PRN IM DECREASED GLUCOSE; Start 03/30/17 at 09:30 Glucose (Glutose) 15 gm Q15M PRN BUCCAL DECREASED GLUCOSE; Start 03/30/17 at 09 :30 Diagnostic Test (Pha) (Accu-Chek) 1 ea Q1H XX Last administered on 03/31/17 17 :24; Admin Dose 1 EA; Start 03/30/17 at 09:30 Dextrose (D50w Syringe) 25 ml Q15M PRN IV Till BS 80 mg/dL or above x2; Start 03/30/17 at 09:30 Dextrose (D50w Syringe) 50 ml Q15M PRN IV Till BS 80 mg/dL or above x2; Start 03/30/17 at 09:30 Lorazepam 2 mg 2 mg Q2H PRN IV AGITATION/ANXIETY Last administered on 17:03; Admin Dose 2 MG; Start 03/30/17 at 12:00 Dextrose/Sodium Chloride 1,000 ml @ 60 mls/hr [id number] IV Last administered on 03/31/17 07:42; Admin Dose 60 MLS/HR; Start 03/31/17 at 07:30 Cefepime HCl 50 ml @ 100 mls/hr Q12 IVPB Last administered on 03/31/17 13:23 ; Admin Dose 100 MLS/HR; Start 03/31/17 at 12:00 Heparin Sodium/ Sodium Chloride (Heparin 1000 Units/NS (A-Line)) 500 ml @ 3 mls/ hr Q24H ONCE IA Last administered on 03/31/17 15:52; Admin Dose 3 MLS/HR; Start 03/31/17 at 13:00; Stop 04/01/17 at 12:59 Atorvastatin Calcium (Lipitor) 40 mg HS NGT ; Start 03/31/17 at 21:00 ROSIO LAWRENCE MD March 31, 2017 20:16
[2017-03-31] MEDS: ATORVASTATIN 40 MG TAB NGT SCH (21:00)
[2017-04-01] VITALS (59 sets, daily range): BP systolic 99–155; BP diastolic 50–88; PULSE 98–110; RESP 16–30; TEMP 100.6–100.9
[2017-04-01] MEDS: ACCU-CHEK XX SCH ×24 (00:30→22:50)
[2017-04-01 04:46] LABS: ADD SCAN DIFF NO
[2017-04-01 04:54] LABS: ABNORMAL IP MESSAGE 1; BASOPHILS % 0.2 % (0.0-2.0); EOSINOPHILS # 0.1 10^3/ul (0.0-0.5); EOSINOPHILS % 0.3 % (0.0-7.0); HEMATOCRIT 30.2 % (42.0-52.0); HEMOGLOBIN 10.1 g/dl (14.0-18.0); LYMPHOCYTES # 1.3 10^3/ul (0.8-2.9); LYMPHOCYTES % 6.6 % (15.0-51.0); MEAN CORPUSCULAR HEMOGLOBIN 30.5 pg (29.0-33.0); MEAN CORPUSCULAR HGB CONC 33.4 g/dl (32.0-37.0); MEAN CORPUSCULAR VOLUME 91.2 fl (82.0-101.0); MEAN PLATELET VOLUME 12.5 fl (7.4-10.4); MONOCYTE # 1.6 10^3/ul (0.3-0.9); MONOCYTES % 8.1 % (0.0-11.0); NEUTROPHIL # 16.7 10^3/ul (1.6-7.5); NEUTROPHILS % 84.1 % (39.0-77.0); PLATELET COUNT 60 10^3/UL (140-415); RED BLOOD COUNT 3.31 10^6/ul (4.70-6.10); RED CELL DISTRIBUTION WIDTH 15.2 % (11.5-14.5); WHITE BLOOD COUNT 19.8 10^3/ul (4.8-10.8)
[2017-04-01 05:11] LABS: ALBUMIN 2.8 g/dl (3.3-4.9)
[2017-04-01 05:12] LABS: POTASSIUM 4.4 mmol/L (3.5-5.1)
[2017-04-01 05:14] LABS: ALBUMIN/GLOBULIN RATIO 1.12; BILIRUBIN,INDIRECT 0.5 mg/dl (0-1.1); BILIRUBIN,TOTAL 0.5 mg/dl (0.2-1.3); CREATININE 0.71 mg/dl (0.61-1.24); TOTAL PROTEIN 5.3 g/dl (6.1-8.1)
[2017-04-01] MEDS: PANTOPRAZOLE 40 MG INJ IV SCH (06:06)
[2017-04-01] MEDS: DEXTROSE 5%-0.9% NACL 1,000 ML IV SCH ×2 (06:06→16:52)
[2017-04-01 09:14] LABS: AADO2 Arterial 107.9 mmHg (7.0-24.0); Arterial Base Excess 0.4 mmol/L (-3.0-3); Arterial COHb 0.3 % (0.0-3.0); Arterial Fraction of Oxyhgb 98.2 % (93.0-99.0); Arterial HCO3 23.6 mmol/L (22.0-26.0); Arterial MetHb 0.1 % (0.0-1.5); Arterial Total Hemglobin 11.3 g/dl (12.0-18.0); MODE VENT - AC
[2017-04-01] MEDS ORDERED: FUROSEMIDE 40 MG INJ ONE (09:26)
[2017-04-01] MEDS ORDERED: FUROSEMIDE 40 MG INJ IV ONE (09:30)
[2017-04-01] MEDS: CEFEPIME 2GM/50 ML (PMX) 50 ML IVPB SCH (09:34)
--- NOTE | 2017-04-01 09:49 | RADRPT ---
PROCEDURE: XR Chest. CLINICAL INDICATION: Status post open heart surgery. TECHNIQUE: A single AP view of the chest was obtained. COMPARISON: Chest x-ray dated 03/31/2017 FINDINGS: There are postoperative changes with sternotomy wires. The endotracheal tube tip is approximately 4 .2 cm above the rose. There is a [place]-Sonia catheter from a right internal jugular approach with ti p in the region of the right ventricular outflow tract. The tip of the enteric tube extends below th e left diaphragm. A left chest tube and mediastinal drain are in place. There is an intra-aortic bal loon pump with radiopaque marker in the proximal descending aortic arch. There is diffuse prominence of the interstitial markings. No pneumothorax is seen. The cardiomedia stinal silhouette is mildly enlarged. Calcifications are seen within the aortic arch. The osseous s tructures are unremarkable. IMPRESSION: 1. Findings suggesting interstitial edema. Overall, no significant interval change. 2. Expected post cardiac surgery changes. 3. Mild cardiomegaly and aortic atherosclerosis. 4. Tubes and lines, as described above. RPTAT: HH .Na Pederson MD, MD Date Time Electronically viewed and signed by .Na Pederson MD, MD on 04/01/2017 09:49 .G/
--- NOTE | 2017-04-01 09:58 | CONS ---
Date/Time of Note Date/Time of Note DATE: 04/01/17 TIME: 09:54 Assessment/Plan Assessment/Plan Chief Complaint/Hosp Course 1. Postop Sepsis vs. SIRS 2. s/p CABG 3. Hx of HTN 4. Hx of DM 5. Hx of obesity 6. Metabolic syndrome 7. Resp failure r: procalc serial lactic acid cxr serially weir cx including sputum ua/ucx vanco/christopher monitor crcl closely we will continue to monitor very closely this critically gentleman with you Problems: Consultation Date/Type/Reason Admit Date/Time March 29, 2017 at 09:30 Date of Consultation: April 01, 2017 Type of Consultation: ID Reason for Consultation abx recs; persistent fever post-op Referring Provider: RUBI BROCK MD Hx of Present Illness This is a 61 yo male with pmh of CAD, multivessel disease, s/p CABG 03.29.17. Post op he has had fevers and leukocytosis. He has continued ventilatory and pressor requirements. Constitutional: requiring IVF, requiring O2 Past Medical History Medical History: coronary artery disease, high cholesterol, hypertension Past Surgical History Past Surgical Hx: coronary bypass surgery Social History Smoking Status: Current every day smoker Exam/Review of Systems Vital Signs Vitals Vital Signs Date Time Temp Pulse Resp B/P Pulse Ox O2 Delivery O2 Flow Rate FiO2 04/01/17 08:16 102 04/01/17 07:00 100.8 22 137/69 99 04/01/17 05:30 40 03/29/17 10:15 Room Air Intake and Output 03/31/17 03/31/17 04/01/17 15:00 23:00 07:00 Intake Total 1406.0 ml 676.0 ml 621.4 ml Output Total 293 ml 412 ml 419 ml Balance 1113.0 ml 264.0 ml 202.4 ml Exam Constitutional: non-verbal, other (sedated) Head: atraumatic, normocephalic Eyes: EOMI, nl conjunctiva ENMT: nl external ears & nose, nl lips & teeth, nl nasal mucosa & septum Neck: supple Respiratory: clear to auscultation, normal air movement Cardiovascular: regular rate and rhythm Gastrointestinal: non-tender, soft Results Result Diagram: 04/01/17 0350 04/01/17 0350 Results 24 hrs Laboratory Tests Test 03/31/17 10:10 5/11/17 11:47 03/31/17 15:02 03/31/17 17:13 Bedside Glucose 117 114 122 124 Test 03/31/17 18:56 03/31/17 20:24 03/31/17 23:26 04/01/17 03:50 Bedside Glucose 119 123 111 White Blood Count 19.8 H Red Blood Count 3.31 L Hemoglobin 10.1 L Hematocrit 30.2 L Mean Corpuscular Volume 91.2 Mean Corpuscular Hemoglobin 30.5 Mean Corpuscular Hemoglobin Concent 33.4 Red Cell Distribution Width 15.2 H Platelet Count 60 #L Mean Platelet Volume 12.5 H Neutrophils % 84.1 H Lymphocytes % 6.6 L Monocytes % 8.1 Eosinophils % 0.3 Basophils % 0.2 Nucleated Red Blood Cells % 0.0 Neutrophils # 16.7 H Lymphocytes # 1.3 Monocytes # 1.6 H Eosinophils # 0.1 Basophils # 0.0 Nucleated Red Blood Cells # 0.0 Sodium Level 135 Potassium Level 4.4 Chloride Level 102 Carbon Dioxide Level 28 Anion Gap 9 Blood Urea Nitrogen 26 H Creatinine 0.71 Glucose Level 120 Calcium Level 8.0 L Total Bilirubin 0.5 Direct Bilirubin 0.00 Indirect Bilirubin 0.5 Aspartate Amino Transf (AST/SGOT) 66 H Alanine Aminotransferase (ALT/SGPT) 56 Alkaline Phosphatase 52 Total Protein 5.3 L Albumin 2.8 L Globulin 2.50 Albumin/Globulin Ratio 1.12 Test 04/01/17 03:59 04/01/17 04:52 04/01/17 06:02 04/01/17 07:00 Bedside Glucose 117 112 Lab Scanned Report BLOOD TRANSFUSION Blood Gas Specimen Source Blood arterial Arterial Blood Date Drawn 04/01/2017 7:35:41 AM Arterial Blood pH (Temp corrected) 7.474 H Arterial Blood pCO2 (Temp correct) 32.8 L Arterial Blood pO2 (Temp corrected) 139.6 H Arterial Blood HCO3 23.6 Arterial Blood Base Excess 0.4 Arterial Blood Oxygen Saturation 98.[address] Test N/A Arterial Blood Gas Puncture Site A-Line Arterial Blood Carboxyhemoglobin 0.3 Arterial Blood Methemoglobin 0.1 Blood Gas A-a O2 Differential 107.9 H Oxyhemoglobin Percent 98.2 Total Hemoglobin 11.3 L Blood Gas Temperature 37.0 Blood Gas Respiration Rate 22.0 Blood Gas Actual Respiration Rate 23 Blood Gas Modality VENT - AC FiO2 40.0 Blood Gas Tidal Volume 550.0 Blood Gas Low PEEP Setting 5.0 Blood Gas Notified Whom JLD Blood Gas Notified Time 04/01/2017 9:11:25 AM Test 04/01/17 07:55 Bedside Glucose 121 Medications Medications Current Medications Phenylephrine HCl/ Dextrose (Brian-Syneph/D5W) 500 ml @ 75 mls/hr TITRATE IV Last administered on 03/31/17 04:00; Admin Dose 75 MLS/HR; Start 03/30/17 at 06 :00 Acetaminophen 650 mg 650 mg Q3H PRN [place] ELEVATED TEMPERATURE Last administered on 03/31/17 22:49; Admin Dose 650 MG; Start 03/29/17 at 23:30 Magnesium Sulfate/ Dextrose (Magnesium Sulfate 1 Gm/D5W) 100 ml @ 100 mls/hr PRN PRN IVPB PENDING LAB VALUE Last administered on 03/31/17 00:52; Admin Dose 100 MLS/HR; Start 03/29/17 at 23:30 Hydromorphone HCl (Dilaudid) 0.2 mg Q2H PRN IV PAIN Last administered on 01:39; Admin Dose 0.2 MG; Start 03/30/17 at 00:30 Hydromorphone HCl (Dilaudid) 0.4 mg Q2H PRN IV PAIN; Start 03/30/17 at 00:30 Hydromorphone HCl (Dilaudid) 0.2 mg Q15M PRN IV PAIN; Start 03/30/17 at 02:00 Hydromorphone HCl 0.4 mg 0.4 mg Q15M PRN IV PAIN Last administered on 14:38; Admin Dose 0.4 MG; Start 03/30/17 at 02:00 Milrinone Lactate 100 ml @ 7.526 mls/ hr TITRATE IV Last administered on 23:31; Admin Dose 5.5 MLS/HR; Start 03/30/17 at 02:05 Propofol (Diprivan) 100 ml @ 2.007 mls/ hr Q12H IV Last administered on 20:30; Admin Dose 6 MLS/HR; Start 03/30/17 at 02:20 Pantoprazole 40 mg 40 mg DAILY@06 IV Last administered on 04/01/17 06:06; Admin Dose 40 MG; Start 03/31/17 at 06:00 Albumin Human 250 ml @ 250 mls/hr PRN PRN IV NOTE Last administered on 03:01; Admin Dose 250 MLS/HR; Start 03/30/17 at 09:00 Miscellaneous Information 1 ea NOTE XX ; Start 03/30/17 at 09:30 Glucose (Glutose) 15 gm Q15M PRN PO DECREASED GLUCOSE; Start 03/30/17 at 09:30 Glucose (Glutose) 22.5 gm Q15M PRN PO DECREASED GLUCOSE; Start 03/30/17 at 09: 30 Dextrose (D50w Syringe) 25 ml Q15M PRN IV DECREASED GLUCOSE; Start 03/30/17 at 09:30 Dextrose (D50w Syringe) 50 ml Q15M PRN IV DECREASED GLUCOSE; Start 03/30/17 at 09:30 Glucagon (Glucagen) 1 mg Q15M PRN IM DECREASED GLUCOSE; Start 03/30/17 at 09:30 Glucose (Glutose) 15 gm Q15M PRN BUCCAL DECREASED GLUCOSE; Start 03/30/17 at 09 :30 Diagnostic Test (Pha) (Accu-Chek) 1 ea Q1H XX Last administered on 03/31/17 17 :24; Admin Dose 1 EA; Start 03/30/17 at 09:30 Dextrose (D50w Syringe) 25 ml Q15M PRN IV Till BS 80 mg/dL or above x2; Start 03/30/17 at 09:30 Dextrose (D50w Syringe) 50 ml Q15M PRN IV Till BS 80 mg/dL or above x2; Start 03/30/17 at 09:30 Lorazepam 2 mg 2 mg Q2H PRN IV AGITATION/ANXIETY Last administered on 17:03; Admin Dose 2 MG; Start 03/30/17 at 12:00 Dextrose/Sodium Chloride 1,000 ml @ 60 mls/hr [id number] IV Last administered on 04/01/17 06:06; Admin Dose 60 MLS/HR; Start 03/31/17 at 07:30 Cefepime HCl 50 ml @ 100 mls/hr Q12 IVPB Last administered on 04/01/17 09:34 ; Admin Dose 100 MLS/HR; Start 03/31/17 at 12:00 Heparin Sodium/ Sodium Chloride (Heparin 1000 Units/NS (A-Line)) 500 ml @ 3 mls/ hr Q24H ONCE IA Last administered on 03/31/17t 15:52; Admin Dose 3 MLS/HR; Start 03/31/17 at 13:00; Stop 04/01/17 at 12:59 Atorvastatin Calcium (Lipitor) 40 mg HS NGT ; Start 03/31/17 at 21:00 ROSIO LAWRENCE MD April 01, 2017 09:58
[2017-04-01] MEDS ORDERED: MEROPENEM 1 GM/100 ML (PMX) 100 ML IVPB SCH (10:00)
[2017-04-01] MEDS ORDERED: VANCOMYCIN IV PER PHARMACY XX SCH (10:00)
[2017-04-01] MEDS: ACETAMINOPHEN 650 MG SUPP PR PRN ×2 (10:02→18:32)
[2017-04-01] MEDS ORDERED: VANCOMYCIN 1.5 GM in SOD CHLORIDE 0.9% 250 ML IVPB SCH (11:00)
[2017-04-01] MEDS: MEROPENEM 1 GM/100 ML (PMX) 100 ML IVPB SCH ×3 (11:18→21:09)
--- NOTE | 2017-04-01 11:24 | CONS ---
Date/Time of Note Date/Time of Note DATE: 04/01/17 TIME: 11:23 Consult Date/Type/Reason Admit Date/Time March 29, 2017 at 09:30 Initial Consult Date 03/30/17 Type of Consultation: Pulmonary ICU Ordering Provider: RUBI BROCK MD Subjective Patient continues mechanical ventilation Currently intubated and sedated but not requiring vasopressor support Continues intra-aortic balloon pump ratio 2-1 Objective Vital Signs Date Time Temp Pulse Resp B/P Pulse Ox O2 Delivery O2 Flow Rate FiO2 04/01/17 08:16 102 04/01/17 08:00 40 04/01/17 07:00 100.8 22 137/69 99 03/29/17 10:15 Room Air Intake and Output 03/31/17 03/31/17 04/01/17 15:00 23:00 07:00 Intake Total 1406.0 ml 676.0 ml 621.4 ml Output Total 293 ml 412 ml 419 ml Balance 1113.0 ml 264.0 ml 202.4 ml Exam PHYSICAL EXAMINATION GENERAL: Elderly gentleman, intubated on mechanical ventilation, opens eyes and appears somewhat agitated. Orally intubated. VITAL SIGNS: see below. HEENT: Pupils equal, round, and reactive to light. CARDIAC: S1, S2, 1/6 systolic ejection murmur CHEST: Diminished air entry bilaterally. ABDOMEN: Mildly distended. Bowel sounds present no guarding or rebound EXTREMITIES: No cyanosis, clubbing edema +1 NEUROLOGIC: Generalized weakness Results/Medications Result Diagram: 04/01/17 0350 04/01/17 0350 Results 24 hrs Laboratory Tests Test 03/31/17 11:47 03/31/17 15:02 03/31/17 17:13 03/31/17 18:56 Bedside Glucose 114 122 124 119 Test 03/31/17 20:24 03/31/17 23:26 04/01/17 03:50 04/01/17 03:59 Bedside Glucose 123 111 117 White Blood Count 19.8 H Red Blood Count 3.31 L Hemoglobin 10.1 L Hematocrit 30.2 L Mean Corpuscular Volume 91.2 Mean Corpuscular Hemoglobin 30.5 Mean Corpuscular Hemoglobin Concent 33.4 Red Cell Distribution Width 15.2 H Platelet Count 60 #L Mean Platelet Volume 12.5 H Neutrophils % 84.1 H Lymphocytes % 6.6 L Monocytes % 8.1 Eosinophils % 0.3 Basophils % 0.2 Nucleated Red Blood Cells % 0.0 Neutrophils # 16.7 H Lymphocytes # 1.3 Monocytes # 1.6 H Eosinophils # 0.1 Basophils # 0.0 Nucleated Red Blood Cells # 0.0 Sodium Level 135 Potassium Level 4.4 Chloride Level 102 Carbon Dioxide Level 28 Anion Gap 9 Blood Urea Nitrogen 26 H Creatinine 0.71 Glucose Level 120 Calcium Level 8.0 L Total Bilirubin 0.5 Direct Bilirubin 0.00 Indirect Bilirubin 0.5 Aspartate Amino Transf (AST/SGOT) 66 H Alanine Aminotransferase (ALT/SGPT) 56 Alkaline Phosphatase 52 Total Protein 5.3 L Albumin 2.8 L Globulin 2.50 Albumin/Globulin Ratio 1.12 Test 04/01/17 04:52 04/01/17 06:02 04/01/17 07:00 04/01/17 07:55 Lab Scanned Report BLOOD TRANSFUSION Bedside Glucose 112 121 Blood Gas Specimen Source Blood arterial Arterial Blood Date Drawn 04/01/2017 7:35:41 AM Arterial Blood pH (Temp corrected) 7.474 H Arterial Blood pCO2 (Temp correct) 32.8 L Arterial Blood pO2 (Temp corrected) 139.6 H Arterial Blood HCO3 23.6 Arterial Blood Base Excess 0.4 Arterial Blood Oxygen Saturation 98.[address] Test N/A Arterial Blood Gas Puncture Site A-Line Arterial Blood Carboxyhemoglobin 0.3 Arterial Blood Methemoglobin 0.1 Blood Gas A-a O2 Differential 107.9 H Oxyhemoglobin Percent 98.2 Total Hemoglobin 11.3 L Blood Gas Temperature 37.0 Blood Gas Respiration Rate 22.0 Blood Gas Actual Respiration Rate 23 Blood Gas Modality VENT - AC FiO2 40.0 Blood Gas Tidal Volume 550.0 Blood Gas Low PEEP Setting 5.0 Blood Gas Notified Whom JLD Blood Gas Notified Time 04/01/2017 9:11:25 AM Test 04/01/17 10:19 Bedside Glucose 134 Medications Current Medications Phenylephrine HCl/ Dextrose (Brian-Syneph/D5W) 500 ml @ 75 mls/hr TITRATE IV Last administered on 03/31/17 04:00; Admin Dose 75 MLS/HR; Start 03/30/17 at 06 :00 Acetaminophen 650 mg 650 mg Q3H PRN [place] ELEVATED TEMPERATURE Last administered on 04/01/17 10:02; Admin Dose 650 MG; Start 03/29/17 at 23:30 Magnesium Sulfate/ Dextrose (Magnesium Sulfate 1 Gm/D5W) 100 ml @ 100 mls/hr PRN PRN IVPB PENDING LAB VALUE Last administered on 03/31/17 00:52; Admin Dose 100 MLS/HR; Start 03/29/17 at 23:30 Hydromorphone HCl (Dilaudid) 0.2 mg Q2H PRN IV PAIN Last administered on 01:39; Admin Dose 0.2 MG; Start 03/30/17 at 00:30 Hydromorphone HCl (Dilaudid) 0.4 mg Q2H PRN IV PAIN; Start 03/30/17 at 00:30 Hydromorphone HCl (Dilaudid) 0.2 mg Q15M PRN IV PAIN; Start 03/30/17 at 02:00 Hydromorphone HCl 0.4 mg 0.4 mg Q15M PRN IV PAIN Last administered on 14:38; Admin Dose 0.4 MG; Start 03/30/17 at 02:00 Milrinone Lactate 100 ml @ 7.526 mls/ hr TITRATE IV Last administered on 23:31; Admin Dose 5.5 MLS/HR; Start 03/30/17 at 02:05 Propofol (Diprivan) 100 ml @ 2.007 mls/ hr Q12H IV Last administered on 20:30; Admin Dose 6 MLS/HR; Start 03/30/17 at 02:20 Pantoprazole 40 mg 40 mg DAILY@06 IV Last administered on 04/01/17 06:06; Admin Dose 40 MG; Start 03/31/17 at 06:00 Albumin Human 250 ml @ 250 mls/hr PRN PRN IV NOTE Last administered on 03:01; Admin Dose 250 MLS/HR; Start 03/30/17 at 09:00 Miscellaneous Information 1 ea NOTE XX ; Start 03/30/17 at 09:30 Glucose (Glutose) 15 gm Q15M PRN PO DECREASED GLUCOSE; Start 03/30/17 at 09:30 Glucose (Glutose) 22.5 gm Q15M PRN PO DECREASED GLUCOSE; Start 03/30/17 at 09: 30 Dextrose (D50w Syringe) 25 ml Q15M PRN IV DECREASED GLUCOSE; Start 03/30/17 at 09:30 Dextrose (D50w Syringe) 50 ml Q15M PRN IV DECREASED GLUCOSE; Start 03/30/17 at 09:30 Glucagon (Glucagen) 1 mg Q15M PRN IM DECREASED GLUCOSE; Start 03/30/17 at 09:30 Glucose (Glutose) 15 gm Q15M PRN BUCCAL DECREASED GLUCOSE; Start 03/30/17 at 09 :30 Diagnostic Test (Pha) (Accu-Chek) 1 ea Q1H XX Last administered on 03/31/17 17 :24; Admin Dose 1 EA; Start 03/30/17 at 09:30 Dextrose (D50w Syringe) 25 ml Q15M PRN IV Till BS 80 mg/dL or above x2; Start 03/30/17 at 09:30 Dextrose (D50w Syringe) 50 ml Q15M PRN IV Till BS 80 mg/dL or above x2; Start 03/30/17 at 09:30 Lorazepam 2 mg 2 mg Q2H PRN IV AGITATION/ANXIETY Last administered on 17:03; Admin Dose 2 MG; Start 03/30/17 at 12:00 Dextrose/Sodium Chloride 1,000 ml @ 60 mls/hr [id number] IV Last administered on 04/01/17 06:06; Admin Dose 60 MLS/HR; Start 03/31/17 at 07:30 Heparin Sodium/ Sodium Chloride (Heparin 1000 Units/NS (A-Line)) 500 ml @ 3 mls/ hr Q24H ONCE IA Last administered on 03/31/17 15:52; Admin Dose 3 MLS/HR; Start 03/31/17 at 13:00; Stop 04/01/17 at 12:59 Atorvastatin Calcium 40 mg 40 mg HS NGT ; Start 03/31/17 at 21:00 Meropenem 100 ml @ 200 mls/hr Q8 IVPB ; Start 04/01/17 at 10:00 Vancomycin HCl 1.5 gm/Sodium Chloride 250 ml @ 83.333 mls/ hr ONCE IVPB ; Start 04/01/17 at 11:00; Stop 04/01/17 at 17:00 Vancomycin HCl (Vancocin) 250 ml @ 125 mls/hr Q12H IVPB ; Start 04/01/17 at 23: 00 Assessment/Plan Chief Complaint/Hosp Course Assessment 1. Status post 5 vessel coronary artery bypass graft surgery and mitral valve replacement 2. Hypoxemic respiratory failure 3. Pulmonary edema radiographically 4. Leukocytosis concerning for possible line sepsis versus pneumonia 5. Encephalopathy toxic metabolic 6. Shock likely component of septic and cardiogenic Plan 1. Remove intra-aortic balloon pump per thoracic surgery 2. Trial of diuretics as evidence of CHF with elevated CVP and pulmonary edema on chest x-ray 3. Broaden antibiotics consider ID consult 4. Continue tube feeding 5. DVT GI prophylaxis Disposition Continue ICU care Problems: MUNDO JONES MD, [facility] April 01, 2017 11:24
[2017-04-01] MEDS: HYDROmorphONE 1 MG/ML SYG IV PRN ×2 (11:29→17:32)
--- NOTE | 2017-04-01 12:22 | CONS ---
Date/Time of Note Date/Time of Note DATE: 04/01/17 TIME: 12:20 Assessment/Plan Assessment/Plan Additional Assessment/Plan Coronary artery disease status post CABG 5 Status post mitral valve replacement Respiratory failure ITP Acute decompensated systolic congestive heart failure Respiratory failure -Patient with improvement in urine output with IV diuretics. Would increase Lasix to 40 mg IV twice daily. Maintain potassium above 4.0 and magnesium above 2.0. Blood pressure remained stable, with start beta-tyrone and ROGER inhibitor over the next 1-2 days. Aspirin currently on hold secondary to thrombocytopenia. Statin therapy ordered. The patient plan to remain intubated , would start enteric feeding. Discussed with CT surgery, intra-aortic balloon pump to be removed this morning. Consultation Date/Type/Reason Admit Date/Time March 29, 2017 at 09:30 Initial Consult Date 04/01/17 Type of Consultation: cv Referring Provider: RUBI BROCK MD 24 HR Interval Summary Free Text/Dictation Patient off all IV pressors. Decreased urine output this morning but responded to IV Lasix. Still has balloon pump Exam/Review of Systems Vital Signs Vitals Vital Signs Date Time Temp Pulse Resp B/P Pulse Ox O2 Delivery O2 Flow Rate FiO2 04/01/17 11:30 104 26 100 40 04/01/17 07:00 100.8 137/69 03/29/17 10:15 Room Air Intake and Output 03/31/17 03/31/17 04/01/17 15:00 23:00 07:00 Intake Total 1406.0 ml 676.0 ml 621.4 ml Output Total 293 ml 412 ml 419 ml Balance 1113.0 ml 264.0 ml 202.4 ml Exam Sedated and intubated, intermittently following commands, no apparent distress Head: normocephalic ENMT: intubated Respiratory: other (Coarse breath sounds bilaterally, no wheezing) Cardiovascular: other (S1-S2 heard), regular rate and rhythm Gastrointestinal: bowel sounds, non-tender, soft Extremities: edema, other (No cyanosis seen) Results Result Diagram: 04/01/17 0350 04/01/17 0350 Results 24 hrs Laboratory Tests Test 03/31/17 15:02 03/31/17 17:13 03/31/17 18:56 03/31/17 20:24 Bedside Glucose 122 124 119 123 Test 03/31/17 23:26 04/01/17 03:50 04/01/17 03:59 04/01/17 04:52 Bedside Glucose 111 117 White Blood Count 19.8 H Red Blood Count 3.31 L Hemoglobin 10.1 L Hematocrit 30.2 L Mean Corpuscular Volume 91.2 Mean Corpuscular Hemoglobin 30.5 Mean Corpuscular Hemoglobin Concent 33.4 Red Cell Distribution Width 15.2 H Platelet Count 60 #L Mean Platelet Volume 12.5 H Neutrophils % 84.1 H Lymphocytes % 6.6 L Monocytes % 8.1 Eosinophils % 0.3 Basophils % 0.2 Nucleated Red Blood Cells % 0.0 Neutrophils # 16.7 H Lymphocytes # 1.3 Monocytes # 1.6 H Eosinophils # 0.1 Basophils # 0.0 Nucleated Red Blood Cells # 0.0 Sodium Level 135 Potassium Level 4.4 Chloride Level 102 Carbon Dioxide Level 28 Anion Gap 9 Blood Urea Nitrogen 26 H Creatinine 0.71 Glucose Level 120 Calcium Level 8.0 L Total Bilirubin 0.5 Direct Bilirubin 0.00 Indirect Bilirubin 0.5 Aspartate Amino Transf (AST/SGOT) 66 H Alanine Aminotransferase (ALT/SGPT) 56 Alkaline Phosphatase 52 Total Protein 5.3 L Albumin 2.8 L Globulin 2.50 Albumin/Globulin Ratio 1.12 Lab Scanned Report BLOOD TRANSFUSION Test 04/01/17 06:02 04/01/17 07:00 04/01/17 07:55 04/01/17 10:19 Bedside Glucose 112 121 134 Blood Gas Specimen Source Blood arterial Arterial Blood Date Drawn 04/01/2017 7:35:41 AM Arterial Blood pH (Temp corrected) 7.474 H Arterial Blood pCO2 (Temp correct) 32.8 L Arterial Blood pO2 (Temp corrected) 139.6 H Arterial Blood HCO3 23.6 Arterial Blood Base Excess 0.4 Arterial Blood Oxygen Saturation 98.[address] Test N/A Arterial Blood Gas Puncture Site A-Line Arterial Blood Carboxyhemoglobin 0.3 Arterial Blood Methemoglobin 0.1 Blood Gas A-a O2 Differential 107.9 H Oxyhemoglobin Percent 98.2 Total Hemoglobin 11.3 L Blood Gas Temperature 37.0 Blood Gas Respiration Rate 22.0 Blood Gas Actual Respiration Rate 23 Blood Gas Modality VENT - AC FiO2 40.0 Blood Gas Tidal Volume 550.0 Blood Gas Low PEEP Setting 5.0 Blood Gas Notified Whom JLD Blood Gas Notified Time 04/01/2017 9:11:25 AM Medications Medications Current Medications Phenylephrine HCl/ Dextrose (Brian-Syneph/D5W) 500 ml @ 75 mls/hr TITRATE IV Last administered on 03/31/17 04:00; Admin Dose 75 MLS/HR; Start 03/30/17 at 06 :00 Acetaminophen 650 mg 650 mg Q3H PRN [place] ELEVATED TEMPERATURE Last administered on 04/01/17 10:02; Admin Dose 650 MG; Start 03/29/17 at 23:30 Magnesium Sulfate/ Dextrose (Magnesium Sulfate 1 Gm/D5W) 100 ml @ 100 mls/hr PRN PRN IVPB PENDING LAB VALUE Last administered on 03/31/17 00:52; Admin Dose 100 MLS/HR; Start 03/29/17 at 23:30 Hydromorphone HCl (Dilaudid) 0.2 mg Q2H PRN IV PAIN Last administered on 01:39; Admin Dose 0.2 MG; Start 03/30/17 at 00:30 Hydromorphone HCl (Dilaudid) 0.4 mg Q2H PRN IV PAIN Last administered on 11:29; Admin Dose 0.4 MG; Start 03/30/17 at 00:30 Hydromorphone HCl (Dilaudid) 0.2 mg Q15M PRN IV PAIN; Start 03/30/17 at 02:00 Hydromorphone HCl 0.4 mg 0.4 mg Q15M PRN IV PAIN Last administered on 14:38; Admin Dose 0.4 MG; Start 03/30/17 at 02:00 Milrinone Lactate 100 ml @ 7.526 mls/ hr TITRATE IV Last administered on 23:31; Admin Dose 5.5 MLS/HR; Start 03/30/17 at 02:05 Propofol (Diprivan) 100 ml @ 2.007 mls/ hr Q12H IV Last administered on 20:30; Admin Dose 6 MLS/HR; Start 03/30/17 at 02:20 Pantoprazole 40 mg 40 mg DAILY@06 IV Last administered on 04/01/17 06:06; Admin Dose 40 MG; Start 03/31/17 at 06:00 Albumin Human 250 ml @ 250 mls/hr PRN PRN IV NOTE Last administered on 03:01; Admin Dose 250 MLS/HR; Start 03/30/17 at 09:00 Miscellaneous Information 1 ea NOTE XX ; Start 03/30/17 at 09:30 Glucose (Glutose) 15 gm Q15M PRN PO DECREASED GLUCOSE; Start 03/30/17 at 09:30 Glucose (Glutose) 22.5 gm Q15M PRN PO DECREASED GLUCOSE; Start 03/30/17 at 09: 30 Dextrose (D50w Syringe) 25 ml Q15M PRN IV DECREASED GLUCOSE; Start 03/30/17 at 09:30 Dextrose (D50w Syringe) 50 ml Q15M PRN IV DECREASED GLUCOSE; Start 03/30/17 at 09:30 Glucagon (Glucagen) 1 mg Q15M PRN IM DECREASED GLUCOSE; Start 03/30/17 at 09:30 Glucose (Glutose) 15 gm Q15M PRN BUCCAL DECREASED GLUCOSE; Start 03/30/17 at 09 :30 Diagnostic Test (Pha) (Accu-Chek) 1 ea Q1H XX Last administered on 03/31/17 17 :24; Admin Dose 1 EA; Start 03/30/17 at 09:30 Dextrose (D50w Syringe) 25 ml Q15M PRN IV Till BS 80 mg/dL or above x2; Start 03/30/17 at 09:30 Dextrose (D50w Syringe) 50 ml Q15M PRN IV Till BS 80 mg/dL or above x2; Start 03/30/17 at 09:30 Lorazepam 2 mg 2 mg Q2H PRN IV AGITATION/ANXIETY Last administered on 17:03; Admin Dose 2 MG; Start 03/30/17 at 12:00 Dextrose/Sodium Chloride 1,000 ml @ 60 mls/hr [id number] IV Last administered on 04/01/17 06:06; Admin Dose 60 MLS/HR; Start 03/31/17 at 07:30 Heparin Sodium/ Sodium Chloride (Heparin 1000 Units/NS (A-Line)) 500 ml @ 3 mls/ hr Q24H ONCE IA Last administered on 03/31/17 15:52; Admin Dose 3 MLS/HR; Start 03/31/17 at 13:00; Stop 04/01/17 at 12:59 Atorvastatin Calcium 40 mg 40 mg HS NGT ; Start 03/31/17 at 21:00 Meropenem 100 ml @ 200 mls/hr Q8 IVPB Last administered on 04/01/17 11:18; Admin Dose 200 MLS/HR; Start 04/01/17 at 10:00 Vancomycin HCl 1.5 gm/Sodium Chloride 250 ml @ 83.333 mls/ hr ONCE IVPB Last administered on 04/01/17 11:18; Admin Dose 83.333 MLS/HR; Start 04/01/17 at 11: 00; Stop 04/01/17 at 17:00 Vancomycin HCl (Vancocin) 250 ml @ 125 mls/hr Q12H IVPB ; Start 04/01/17 at 23: 00 Ranulfo Alvarado DO April 01, 2017 12:22
--- NOTE | 2017-04-01 12:51 | PN ---
Date/Time of Note Date/Time of Note DATE: 04/01/17 TIME: 12:50 Assessment/Plan Lines/Catheters IV Catheter Type (from Nrsg): Cordis Helm in Place (from Nrsg): Yes Assessment/Plan Chief Complaint/Hosp Course SP CABG, MVR hemodynamically stable continue IABP IABP DCed will contnue CT sxn Problems: Subjective 24 Hr Interval Summary Constitutional: improved Pain Control: mild Exam/Review of Systems Vital Signs Vitals Vital Signs Date Time Temp Pulse Resp B/P Pulse Ox O2 Delivery O2 Flow Rate FiO2 04/01/17 12:28 100 04/01/17 11:30 26 100 40 04/01/17 07:00 100.8 137/69 03/29/17 10:15 Room Air Intake and Output 03/31/17 03/31/17 04/01/17 15:00 23:00 07:00 Intake Total 1406.0 ml 676.0 ml 621.4 ml Output Total 293 ml 412 ml 419 ml Balance 1113.0 ml 264.0 ml 202.4 ml Exam ENMT: mucosa pink and moist, nl external ears & nose, nl lips & teeth, nl nasal mucosa & septum Neck: non-tender, supple Respiratory: clear to auscultation, normal air movement Cardiovascular: nl pulses, regular rate and rhythm Results Result Diagram: 04/01/1734904/01/17 035 TOMEKA DELEON MD April 01, 2017 12:51
[2017-04-01 13:56] LABS: ADD UMIC NO; URINE BILIRUBIN (Dip) NEGATIVE (NEGATIVE); URINE BLOOD (Dip) NEGATIVE (NEGATIVE); URINE COLOR LT. YELLOW (YELLOW); URINE GLUCOSE (Dip) NEGATIVE (NEGATIVE); URINE KETONES (Dip) NEGATIVE (NEGATIVE); URINE LEUKOCYTE ESTERASE (Dip) NEGATIVE (NEGATIVE); URINE NITRITE (Dip) NEGATIVE (NEGATIVE); URINE TOTAL PROTEIN (Dip) NEGATIVE (NEGATIVE); URINE UROBILINOGEN (Dip) 0.2 E.U./dL (0.1-1.0)
--- NOTE | 2017-04-01 14:07 | PN ---
Date/Time of Note Date/Time of Note DATE: 04/01/17 TIME: 14:00 Assessment/Plan VTE Prophylaxis VTE Prophylaxis Intervention: SCD's Lines/Catheters IV Catheter Type (from [facility]): Cordis Urinary Cath still in place: Yes Reason Cath still needed: urinary retention Assessment/Plan Assessment/Plan - Coronary artery disease status post CABG [address] Littlejohn - Status post mitral valve replacement - Status post right coronary endarterectomy - Respiratory failure, Dr. Zafar is following in pulmonology consultation. - Acute decompensated systolic congestive heart failure, Dr. Chilel is following in cardiology consultation. Continue Lasix monitor electrolytes. Further recommendations based on clinical course. Plan of care discussed with Dr. Kay. Subjective 24 Hr Interval Summary Free Text/Dictation Patient is currently orally intubated on ventilatory support, sedated. Intra- aortic balloon pump DC'd. Adequate urine output via Helm. T-max 100.9. Hemodynamically stable. Exam/Review of Systems Vital Signs Vitals Vital Signs Date Time Temp Pulse Resp B/P Pulse Ox O2 Delivery O2 Flow Rate FiO2 04/01/17 13:00 109 24 149/79 98 04/01/17 12:00 100.6 04/01/17 11:30 40 03/29/17 10:15 Room Air Intake and Output 03/31/17 03/31/17 04/01/17 14:59 22:59 06:59 Intake Total 1028.5 ml 974.0 ml 634.7 ml Output Total 288 ml 408 ml 463 ml Balance 740.5 ml 566.0 ml 171.7 ml Exam Constitutional: other (Sedated) Head: atraumatic, normocephalic Eyes: nl conjunctiva ENMT: nl external ears & nose Neck: supple Respiratory: clear to auscultation, diminished breath sounds Cardiovascular: nl pulses, regular rate and rhythm Gastrointestinal: non-tender, soft Genitourinary - Male: other (Helm catheter) Musculoskeletal: nl extremities to inspection Extremities: normal pulses Results Result Diagram: 04/01/17 0350 04/01/17 0350 Results 24 hrs Laboratory Tests Test 03/31/17 15:02 03/31/17 17:13 03/31/17 18:56 03/31/17 20:24 Bedside Glucose 122 124 119 123 Test 03/31/17 23:26 04/01/17 03:50 04/01/17 03:59 04/01/17 04:52 Bedside Glucose 111 117 White Blood Count 19.8 H Red Blood Count 3.31 L Hemoglobin 10.1 L Hematocrit 30.2 L Mean Corpuscular Volume 91.2 Mean Corpuscular Hemoglobin 30.5 Mean Corpuscular Hemoglobin Concent 33.4 Red Cell Distribution Width 15.2 H Platelet Count 60 #L Mean Platelet Volume 12.5 H Neutrophils % 84.1 H Lymphocytes % 6.6 L Monocytes % 8.1 Eosinophils % 0.3 Basophils % 0.2 Nucleated Red Blood Cells % 0.0 Neutrophils # 16.7 H Lymphocytes # 1.3 Monocytes # 1.6 H Eosinophils # 0.1 Basophils # 0.0 Nucleated Red Blood Cells # 0.0 Sodium Level 135 Potassium Level 4.4 Chloride Level 102 Carbon Dioxide Level 28 Anion Gap 9 Blood Urea Nitrogen 26 H Creatinine 0.71 Glucose Level 120 Calcium Level 8.0 L Total Bilirubin 0.5 Direct Bilirubin 0.00 Indirect Bilirubin 0.5 Aspartate Amino Transf (AST/SGOT) 66 H Alanine Aminotransferase (ALT/SGPT) 56 Alkaline Phosphatase 52 Total Protein 5.3 L Albumin 2.8 L Globulin 2.50 Albumin/Globulin Ratio 1.12 Lab Scanned Report BLOOD TRANSFUSION Test 04/01/17 06:02 04/01/17 07:00 04/01/17 07:55 04/01/17 10:19 Bedside Glucose 112 121 134 Blood Gas Specimen Source Blood arterial Arterial Blood Date Drawn 04/01/2017 7:35:41 AM Arterial Blood pH (Temp corrected) 7.474 H Arterial Blood pCO2 (Temp correct) 32.8 L Arterial Blood pO2 (Temp corrected) 139.6 H Arterial Blood HCO3 23.6 Arterial Blood Base Excess 0.4 Arterial Blood Oxygen Saturation 98.[address] Test N/A Arterial Blood Gas Puncture Site A-Line Arterial Blood Carboxyhemoglobin 0.3 Arterial Blood Methemoglobin 0.1 Blood Gas A-a O2 Differential 107.9 H Oxyhemoglobin Percent 98.2 Total Hemoglobin 11.3 L Blood Gas Temperature 37.0 Blood Gas Respiration Rate 22.0 Blood Gas Actual Respiration Rate 23 Blood Gas Modality VENT - AC FiO2 40.0 Blood Gas Tidal Volume 550.0 Blood Gas Low PEEP Setting 5.0 Blood Gas Notified Whom JLD Blood Gas Notified Time 04/01/2017 9:11:25 AM Test 04/01/17 12:21 04/01/17 12:25 04/01/17 12:28 Bedside Glucose 115 Urine Color LT. YELLOW Urine Clarity CLEAR Urine pH 5.0 Urine Specific [place] 1.015 Urine Ketones NEGATIVE Urine Nitrite NEGATIVE Urine Bilirubin NEGATIVE Urine Urobilinogen 0.2 E.U./dL Urine Leukocyte Esterase NEGATIVE Urine Hemoglobin NEGATIVE Urine Glucose NEGATIVE Urine Total Protein NEGATIVE Lactic Acid Level 1.1 Medications Medications Current Medications Phenylephrine HCl/ Dextrose (Brian-Syneph/D5W) 500 ml @ 75 mls/hr TITRATE IV Last administered on 03/31/17 04:00; Admin Dose 75 MLS/HR; Start 03/30/17 at 06 :00 Acetaminophen 650 mg 650 mg Q3H PRN [place] ELEVATED TEMPERATURE Last administered on 04/01/17 10:02; Admin Dose 650 MG; Start 03/29/17 at 23:30 Magnesium Sulfate/ Dextrose (Magnesium Sulfate 1 Gm/D5W) 100 ml @ 100 mls/hr PRN PRN IVPB PENDING LAB VALUE Last administered on 03/31/17 00:52; Admin Dose 100 MLS/HR; Start 03/29/17 at 23:30 Hydromorphone HCl (Dilaudid) 0.2 mg Q2H PRN IV PAIN Last administered on 01:39; Admin Dose 0.2 MG; Start 03/30/17 at 00:30 Hydromorphone HCl (Dilaudid) 0.4 mg Q2H PRN IV PAIN Last administered on 11:29; Admin Dose 0.4 MG; Start 03/30/17 at 00:30 Hydromorphone HCl (Dilaudid) 0.2 mg Q15M PRN IV PAIN; Start 03/30/17 at 02:00 Hydromorphone HCl 0.4 mg 0.4 mg Q15M PRN IV PAIN Last administered on 14:38; Admin Dose 0.4 MG; Start 03/30/17 at 02:00 Milrinone Lactate 100 ml @ 7.526 mls/ hr TITRATE IV Last administered on 23:31; Admin Dose 5.5 MLS/HR; Start 03/30/17 at 02:05 Propofol (Diprivan) 100 ml @ 2.007 mls/ hr Q12H IV Last administered on 20:30; Admin Dose 6 MLS/HR; Start 03/30/17 at 02:20 Pantoprazole 40 mg 40 mg DAILY@06 IV Last administered on 04/01/17 06:06; Admin Dose 40 MG; Start 03/31/17 at 06:00 Albumin Human 250 ml @ 250 mls/hr PRN PRN IV NOTE Last administered on 03:01; Admin Dose 250 MLS/HR; Start 03/30/17 at 09:00 Miscellaneous Information 1 ea NOTE XX ; Start 03/30/17 at 09:30 Glucose (Glutose) 15 gm Q15M PRN PO DECREASED GLUCOSE; Start 03/30/17 at 09:30 Glucose (Glutose) 22.5 gm Q15M PRN PO DECREASED GLUCOSE; Start 03/30/17 at 09: 30 Dextrose (D50w Syringe) 25 ml Q15M PRN IV DECREASED GLUCOSE; Start 03/30/17 at 09:30 Dextrose (D50w Syringe) 50 ml Q15M PRN IV DECREASED GLUCOSE; Start 03/30/17 at 09:30 Glucagon (Glucagen) 1 mg Q15M PRN IM DECREASED GLUCOSE; Start 03/30/17 at 09:30 Glucose (Glutose) 15 gm Q15M PRN BUCCAL DECREASED GLUCOSE; Start 03/30/17 at 09 :30 Diagnostic Test (Pha) (Accu-Chek) 1 ea Q1H XX Last administered on 03/31/17 17 :24; Admin Dose 1 EA; Start 03/30/17 at 09:30 Dextrose (D50w Syringe) 25 ml Q15M PRN IV Till BS 80 mg/dL or above x2; Start 03/30/17 at 09:30 Dextrose (D50w Syringe) 50 ml Q15M PRN IV Till BS 80 mg/dL or above x2; Start 03/30/17 at 09:30 Lorazepam 2 mg 2 mg Q2H PRN IV AGITATION/ANXIETY Last administered on 17:03; Admin Dose 2 MG; Start 03/30/17 at 12:00 Dextrose/Sodium Chloride (D5-NS) 1,000 ml @ 60 mls/hr [id number] IV Last administered on 04/01/17 06:06; Admin Dose 60 MLS/HR; Start 03/31/17 at 07:30 Atorvastatin Calcium 40 mg 40 mg HS NGT ; Start 03/31/17 at 21:00 Meropenem 100 ml @ 200 mls/hr Q8 IVPB Last administered on 04/01/17 11:18; Admin Dose 200 MLS/HR; Start 04/01/17 at 10:00 Vancomycin HCl 1.5 gm/Sodium Chloride 250 ml @ 83.333 mls/ hr ONCE IVPB Last administered on 04/01/17 11:18; Admin Dose 83.333 MLS/HR; Start 04/01/17 at 11: 00; Stop 04/01/17 at 17:00 Vancomycin HCl (Vancocin) 250 ml @ 125 mls/hr Q12H IVPB ; Start 04/01/17 at 23: 00 EDI MENDOZA April 01, 2017 14:06
[2017-04-01] MEDS: PROPOFOL 100 ML IV SCH (14:24)
[2017-04-01] MEDS: FUROSEMIDE 40 MG INJ IV SCH (18:29)
[2017-04-01 19:17] LABS: AADO2 Arterial 124.6 mmHg (7.0-24.0); Arterial Base Excess 1.3 mmol/L (-3.0-3); Arterial COHb 0.3 % (0.0-3.0); Arterial Fraction of Oxyhgb 97.5 % (93.0-99.0); Arterial HCO3 24.7 mmol/L (22.0-26.0); Arterial MetHb 0.3 % (0.0-1.5); Arterial Total Hemglobin 11.5 g/dl (12.0-18.0); Blood Gas PS 10; MODE VENT - CPAP
[2017-04-01] MEDS ORDERED: hydrALAzine 20 MG INJ IV PRN (20:00)
[2017-04-01] MEDS: ATORVASTATIN 40 MG TAB NGT SCH (20:54)
[2017-04-01] MEDS: VANCOMYCIN 1 GM in NS 250 ML IVPB SCH (22:54)
[2017-04-02] VITALS (29 sets, daily range): BP systolic 115–143; BP diastolic 48–108; PULSE 85–106; RESP 18–32
[2017-04-02] MEDS: ACCU-CHEK XX SCH ×4 (00:39→06:10)
[2017-04-02] MEDS: PROPOFOL 100 ML IV SCH (00:39)
[2017-04-02] MEDS: FUROSEMIDE 40 MG INJ IV SCH ×2 (05:13→17:52)
[2017-04-02] MEDS: PANTOPRAZOLE 40 MG INJ IV SCH (05:13)
[2017-04-02] MEDS: MEROPENEM 1 GM/100 ML (PMX) 100 ML IVPB SCH ×3 (05:13→22:05)
[2017-04-02 06:31] LABS: ADD SCAN DIFF NO
[2017-04-02 06:35] LABS: ABNORMAL IP MESSAGE 1; BASOPHILS % 0.2 % (0.0-2.0); EOSINOPHILS # 0.1 10^3/ul (0.0-0.5); EOSINOPHILS % 0.5 % (0.0-7.0); HEMATOCRIT 28.5 % (42.0-52.0); HEMOGLOBIN 9.5 g/dl (14.0-18.0); LYMPHOCYTES # 1.1 10^3/ul (0.8-2.9); LYMPHOCYTES % 6.4 % (15.0-51.0); MEAN CORPUSCULAR HGB CONC 33.3 g/dl (32.0-37.0); MEAN CORPUSCULAR VOLUME 93.1 fl (82.0-101.0); MONOCYTE # 1.5 10^3/ul (0.3-0.9); MONOCYTES % 8.7 % (0.0-11.0); NEUTROPHIL # 14.3 10^3/ul (1.6-7.5); NEUTROPHILS % 83.3 % (39.0-77.0); PLATELET COUNT 57 10^3/UL (140-415); RED BLOOD COUNT 3.06 10^6/ul (4.70-6.10); RED CELL DISTRIBUTION WIDTH 14.8 % (11.5-14.5); WHITE BLOOD COUNT 17.2 10^3/ul (4.8-10.8)
[2017-04-02 06:57] LABS: POTASSIUM 3.5 mmol/L (3.5-5.1)
[2017-04-02 06:59] LABS: CREATININE 0.73 mg/dl (0.61-1.24)
[2017-04-02 07:00] LABS: PHOSPHORUS 2.9 mg/dl (2.5-4.9)
[2017-04-02 07:01] LABS: CALCIUM 7.8 mg/dl (8.4-10.2); MAGNESIUM 2.4 mg/dl (1.7-2.5)
[2017-04-02] MEDS: POTASSIUM CHLORIDE 50 ML IVPB PRN ×3 (07:30→10:16)
--- NOTE | 2017-04-02 08:29 | PN ---
Date/Time of Note Date/Time of Note DATE: 04/02/17 TIME: 08:28 Assessment/Plan Lines/Catheters IV Catheter Type (from Nrsg): CORDIS Helm in Place (from Nrsg): Yes Assessment/Plan Chief Complaint/Hosp Course SP CABG, MVR hemodynamically stable continue IABP Extubated will DC CT sxn DC pacing wires Problems: Subjective 24 Hr Interval Summary Constitutional: improved Pain Control: mild Exam/Review of Systems Vital Signs Vitals Vital Signs Date Time Temp Pulse Resp B/P Pulse Ox O2 Delivery O2 Flow Rate FiO2 04/02/17 07:30 99.4 96 24 130/57 100 Nasal Cannula 2.0 04/01/17 17:10 40 Intake and Output 04/01/17 04/01/17 04/02/17 15:00 23:00 07:00 Intake Total 933.39 ml 239.5 ml 730 ml Output Total 1451 ml 1195 ml 814 ml Balance -517.61 ml -955.5 ml -84 ml Exam ENMT: mucosa pink and moist, nl external ears & nose, nl lips & teeth, nl nasal mucosa & septum Neck: non-tender, supple Cardiovascular: nl pulses, regular rate and rhythm Results Result Diagram: 04/02/1751904/02/17519 TOMEKA DELEON MD April 02, 2017 08:29
[2017-04-02 09:05] LABS: Arterial COHb 0.3 % (0.0-3.0); Arterial HCO3 26.2 mmol/L (22.0-26.0); Arterial MetHb 0.3 % (0.0-1.5); MODE NASAL CANNULA
--- NOTE | 2017-04-02 10:05 | PN ---
Date/Time of Note Date/Time of Note DATE: 04/02/17 TIME: 10:04 Assessment/Plan VTE Prophylaxis VTE Prophylaxis Intervention: other Lines/Catheters IV Catheter Type (from [facility]): Cordis Urinary Cath still in place: Yes Reason Cath still needed: skin wounds contaminated by urine Assessment/Plan Chief Complaint/Hosp Course - Coronary artery disease status post CABG [address] Littlejohn - Status post mitral valve replacement - Status post right coronary endarterectomy - Respiratory failure, Dr. Zafar is following in pulmonology consultation, doing better - Acute decompensated systolic congestive heart failure, Dr. Chilel is following in cardiology consultation. Continue Lasix monitor electrolytes. Problems: Subjective 24 Hr Interval Summary Free Text/Dictation Patient is resting comfortably, denies chest pain Exam/Review of Systems Vital Signs Vitals Vital Signs Date Time Temp Pulse Resp B/P Pulse Ox O2 Delivery O2 Flow Rate FiO2 04/02/17 09:00 99.2 96 24 126/81 98 Nasal Cannula 04/02/17 08:00 2.0 04/01/17 17:10 40 Intake and Output 04/01/17 04/01/17 04/02/17 15:00 23:00 07:00 Intake Total 933.39 ml 239.5 ml 730 ml Output Total 1451 ml 1195 ml 1320 ml Balance -517.61 ml -955.5 ml -590 ml Exam Constitutional: well developed Head: atraumatic, normocephalic Neck: supple Respiratory: clear to auscultation Cardiovascular: regular rate and rhythm Gastrointestinal: non-tender, soft Extremities: normal pulses Results Result Diagram: 04/02/17 0520 04/02/17 0520 Results 24 hrs Laboratory Tests Test 04/01/17 10:19 04/01/17 12:21 04/01/17 12:25 04/01/17 12:28 Bedside Glucose 134 115 Urine Color LT. YELLOW Urine Clarity CLEAR Urine pH 5.0 Urine Specific [place] 1.015 Urine Ketones NEGATIVE Urine Nitrite NEGATIVE Urine Bilirubin NEGATIVE Urine Urobilinogen 0.2 E.U./dL Urine Leukocyte Esterase NEGATIVE Urine Hemoglobin NEGATIVE Urine Glucose NEGATIVE Urine Total Protein NEGATIVE Lactic Acid Level 1.1 Test 04/01/17 14:20 04/01/17 16:56 04/01/17 18:27 04/01/17 19:00 Bedside Glucose 132 121 118 Potassium Level 4.1 Magnesium Level 2.2 Test 04/01/17 19:10 04/01/17 21:02 04/01/17 22:49 04/02/17 00:39 Blood Gas Specimen Source Blood arterial Arterial Blood Date Drawn 04/01/2017 7:10:17 PM Arterial Blood pH (Temp corrected) 7.468 H Arterial Blood pCO2 (Temp correct) 34.9 L Arterial Blood pO2 (Temp corrected) 120.5 H Arterial Blood HCO3 24.7 Arterial Blood Base Excess 1.3 Arterial Blood Oxygen Saturation 98.[address] Test N/A Arterial Blood Gas Puncture Site A-Line Arterial Blood Carboxyhemoglobin 0.3 Arterial Blood Methemoglobin 0.3 Blood Gas A-a O2 Differential 124.6 H Oxyhemoglobin Percent 97.5 Total Hemoglobin 11.5 L Blood Gas Temperature 37.0 Blood Gas Actual Respiration Rate 21 Blood Gas Modality VENT - CPAP FiO2 40.0 Blood Gas Tidal Volume 557.0 Blood Gas Pressure Support 10 Blood Gas Notified Whom SHORTY Blood Gas Notified Time 04/01/2017 7:17:10 PM Bedside Glucose 129 101 103 Test 04/02/17 02:28 04/02/17 04:59 04/02/17 05:20 04/02/17 06:06 Bedside Glucose 106 111 104 White Blood Count 17.2 H Red Blood Count 3.06 L Hemoglobin 9.5 L Hematocrit 28.5 L Mean Corpuscular Volume 93.1 Mean Corpuscular Hemoglobin 31.0 Mean Corpuscular Hemoglobin Concent 33.3 Red Cell Distribution Width 14.8 H Platelet Count 57 L Mean Platelet Volume 13.0 H Neutrophils % 83.3 H Lymphocytes % 6.4 L Monocytes % 8.7 Eosinophils % 0.5 Basophils % 0.2 Nucleated Red Blood Cells % 0.0 Neutrophils # 14.3 H Lymphocytes # 1.1 Monocytes # 1.5 H Eosinophils # 0.1 Basophils # 0.0 Nucleated Red Blood Cells # 0.0 Sodium Level 142 Potassium Level 3.5 Chloride Level 104 Carbon Dioxide Level 29 Anion Gap 13 Blood Urea Nitrogen 35 H Creatinine 0.73 Glucose Level 107 Calcium Level 7.8 L Phosphorus Level 2.9 Magnesium Level 2.4 Test 04/02/17 07:00 04/02/17 08:58 Blood Gas Specimen Source Blood arterial Arterial Blood Date Drawn 04/02/2017 8:00:23 AM Arterial Blood pH (Temp corrected) 7.499 H Arterial Blood pCO2 (Temp correct) 34.4 L Arterial Blood pO2 (Temp corrected) 69.8 L Arterial Blood HCO3 26.2 H Arterial Blood Base Excess 3.0 Arterial Blood Oxygen Saturation 93.[address] Test N/A Arterial Blood Gas Puncture Site A-Line Arterial Blood Carboxyhemoglobin 0.3 Arterial Blood Methemoglobin 0.3 Blood Gas A-a O2 Differential 82.0 H Oxyhemoglobin Percent 93.0 Total Hemoglobin 10.0 L Blood Gas Temperature 37.0 Blood Gas Modality NASAL CANNULA FiO2 27.0 Blood Gas Notified Whom TM Blood Gas Notified Time 04/02/2017 9:05:12 AM Bedside Glucose 103 Medications Medications Current Medications Phenylephrine HCl/ Dextrose (Brian-Syneph/D5W) 500 ml @ 75 mls/hr TITRATE IV Last administered on 03/31/17 04:00; Admin Dose 75 MLS/HR; Start 03/30/17 at 06 :00 Acetaminophen 650 mg 650 mg Q3H PRN [place] ELEVATED TEMPERATURE Last administered on 04/01/17 18:32; Admin Dose 650 MG; Start 03/29/17 at 23:30 Magnesium Sulfate/ Dextrose (Magnesium Sulfate 1 Gm/D5W) 100 ml @ 100 mls/hr PRN PRN IVPB PENDING LAB VALUE Last administered on 03/31/17 00:52; Admin Dose 100 MLS/HR; Start 03/29/17 at 23:30 Hydromorphone HCl (Dilaudid) 0.2 mg Q2H PRN IV PAIN Last administered on 01:39; Admin Dose 0.2 MG; Start 03/30/17 at 00:30 Hydromorphone HCl (Dilaudid) 0.4 mg Q2H PRN IV PAIN Last administered on 17:32; Admin Dose 0.4 MG; Start 03/30/17 at 00:30 Hydromorphone HCl (Dilaudid) 0.2 mg Q15M PRN IV PAIN; Start 03/30/17 at 02:00 Hydromorphone HCl 0.4 mg 0.4 mg Q15M PRN IV PAIN Last administered on 14:38; Admin Dose 0.4 MG; Start 03/30/17 at 02:00 Milrinone Lactate 100 ml @ 7.526 mls/ hr TITRATE IV Last administered on 23:31; Admin Dose 5.5 MLS/HR; Start 03/30/17 at 02:05 Propofol (Diprivan) 100 ml @ 2.007 mls/ hr Q12H IV Last administered on 14:24; Admin Dose 6.021 MLS/HR; Start 03/30/17 at 02:20 Pantoprazole 40 mg 40 mg DAILY@06 IV Last administered on 04/02/17 05:13; Admin Dose 40 MG; Start 03/31/17 at 06:00 Albumin Human 250 ml @ 250 mls/hr PRN PRN IV NOTE Last administered on 03:01; Admin Dose 250 MLS/HR; Start 03/30/17 at 09:00 Miscellaneous Information 1 ea NOTE XX ; Start 03/30/17 at 09:30 Glucose (Glutose) 15 gm Q15M PRN PO DECREASED GLUCOSE; Start 03/30/17 at 09:30 Glucose (Glutose) 22.5 gm Q15M PRN PO DECREASED GLUCOSE; Start 03/30/17 at 09: 30 Dextrose (D50w Syringe) 25 ml Q15M PRN IV DECREASED GLUCOSE; Start 03/30/17 at 09:30 Dextrose (D50w Syringe) 50 ml Q15M PRN IV DECREASED GLUCOSE; Start 03/30/17 at 09:30 Glucagon (Glucagen) 1 mg Q15M PRN IM DECREASED GLUCOSE; Start 03/30/17 at 09:30 Glucose (Glutose) 15 gm Q15M PRN BUCCAL DECREASED GLUCOSE; Start 03/30/17 at 09 :30 Diagnostic Test (Pha) (Accu-Chek) 1 ea Q1H XX Last administered on 04/02/17 06 :10; Admin Dose 1 EA; Start 03/30/17 at 09:30 Dextrose (D50w Syringe) 25 ml Q15M PRN IV Till BS 80 mg/dL or above x2; Start 03/30/17 at 09:30 Dextrose (D50w Syringe) 50 ml Q15M PRN IV Till BS 80 mg/dL or above x2; Start 03/30/17 at 09:30 Lorazepam 2 mg 2 mg Q2H PRN IV AGITATION/ANXIETY Last administered on 17:03; Admin Dose 2 MG; Start 03/30/17 at 12:00 Dextrose/Sodium Chloride (D5-NS) 1,000 ml @ 60 mls/hr [id number] IV Last administered on 04/01/17 16:52; Admin Dose 60 MLS/HR; Start 03/31/17 at 07:30 Atorvastatin Calcium 40 mg 40 mg HS NGT ; Start 03/31/17 at 21:00 Meropenem 100 ml @ 200 mls/hr Q8 IVPB Last administered on 04/02/17 05:13; Admin Dose 200 MLS/HR; Start 04/01/17 at 10:00 Vancomycin HCl (Vancocin) 250 ml @ 125 mls/hr Q12H IVPB Last administered on 22:54; Admin Dose 125 MLS/HR; Start 04/01/17 at 23:00 Miscellaneous Information (*Rx Drug Level Order Reminder*) VANCO TR LEVEL PRIOR... ONCE ONCE XX ; Start 04/02/17 at 22:00; Stop 04/02/17 at 22:01 Hydralazine HCl (Apresoline) 10 mg Q4H PRN IV ELEVATED BLOOD PRESSURE; Start at 20:00 CATARINO GREGORY April 02, 2017 10:05
[2017-04-02] MEDS: DEXTROSE 5%-0.9% NACL 1,000 ML IV SCH (10:17)
--- NOTE | 2017-04-02 10:59 | PN ---
Date/Time of Note Date/Time of Note DATE: 04/02/17 TIME: 10:58 Assessment/Plan VTE Prophylaxis VTE Prophylaxis Intervention: SCD's Lines/Catheters IV [facility]from [facility] Cordis Urinary Cath still in place: Yes Reason Cath still needed: urinary retention Assessment/Plan Assessment/Plan Coronary artery disease status post CABG 5 Status post mitral valve replacement Respiratory failure ITP Acute decompensated systolic congestive heart failure Respiratory failure -Patient with improvement in urine output with IV diuretics. Would increase Lasix to 40 mg IV twice daily. Maintain potassium above 4.0 and magnesium above 2.0. Blood pressure remained stable, with start beta-tyrone and ROGER inhibitor over the next 1-2 days. Aspirin currently on hold secondary to thrombocytopenia. Statin therapy ordered. The patient plan to remain intubated , would start enteric feeding. -off IABP CTS care Subjective 24 Hr Interval Summary Free Text/Dictation The patient is slowly improving Exam/Review of Systems Vital Signs Vitals Vital Signs Date Time Temp Pulse Resp B/P Pulse Ox O2 Delivery O2 Flow Rate FiO2 04/02/17 09:00 99.2 96 24 126/81 98 Nasal Cannula 04/02/17 08:00 2.0 04/01/17 17:10 40 Intake and Output 04/01/17 04/01/17 04/02/17 15:00 23:00 07:00 Intake Total 933.39 ml 239.5 ml 730 ml Output Total 1451 ml 1195 ml 1320 ml Balance -517.61 ml -955.5 ml -590 ml Results Result Diagram: 04/02/17 0520 04/02/17 0520 Results 24 hrs Laboratory Tests Test 04/01/17 12:21 04/01/17 12:25 04/01/17 12:28 04/01/17 14:20 Bedside Glucose 115 132 Urine Color LT. YELLOW Urine Clarity CLEAR Urine pH 5.0 Urine Specific [place] 1.015 Urine Ketones NEGATIVE Urine Nitrite NEGATIVE Urine Bilirubin NEGATIVE Urine Urobilinogen 0.2 E.U./dL Urine Leukocyte Esterase NEGATIVE Urine Hemoglobin NEGATIVE Urine Glucose NEGATIVE Urine Total Protein NEGATIVE Lactic Acid Level 1.1 Test 04/01/17 16:56 04/01/17 18:27 04/01/17 19:00 04/01/17 19:10 Bedside Glucose 121 118 Potassium Level 4.1 Magnesium Level 2.2 Blood Gas Specimen Source Blood arterial Arterial Blood Date Drawn 04/01/2017 7:10:17 PM Arterial Blood pH (Temp corrected) 7.468 H Arterial Blood pCO2 (Temp correct) 34.9 L Arterial Blood pO2 (Temp corrected) 120.5 H Arterial Blood HCO3 24.7 Arterial Blood Base Excess 1.3 Arterial Blood Oxygen Saturation 98.[address] Test N/A Arterial Blood Gas Puncture Site A-Line Arterial Blood Carboxyhemoglobin 0.3 Arterial Blood Methemoglobin 0.3 Blood Gas A-a O2 Differential 124.6 H Oxyhemoglobin Percent 97.5 Total Hemoglobin 11.5 L Blood Gas Temperature 37.0 Blood Gas Actual Respiration Rate 21 Blood Gas Modality VENT - CPAP FiO2 40.0 Blood Gas Tidal Volume 557.0 Blood Gas Pressure Support 10 Blood Gas Notified Whom SHORTY Blood Gas Notified Time 04/01/2017 7:17:10 PM Test 04/01/17 21:02 04/01/17 22:49 04/02/17 00:39 04/02/17 02:28 Bedside Glucose 129 101 103 106 Test 04/02/17 04:59 04/02/17 05:20 04/02/17 06:06 04/02/17 07:00 Bedside Glucose 111 104 White Blood Count 17.2 H Red Blood Count 3.06 L Hemoglobin 9.5 L Hematocrit 28.5 L Mean Corpuscular Volume 93.1 Mean Corpuscular Hemoglobin 31.0 Mean Corpuscular Hemoglobin Concent 33.3 Red Cell Distribution Width 14.8 H Platelet Count 57 L Mean Platelet Volume 13.0 H Neutrophils % 83.3 H Lymphocytes % 6.4 L Monocytes % 8.7 Eosinophils % 0.5 Basophils % 0.2 Nucleated Red Blood Cells % 0.0 Neutrophils # 14.3 H Lymphocytes # 1.1 Monocytes # 1.5 H Eosinophils # 0.1 Basophils # 0.0 Nucleated Red Blood Cells # 0.0 Sodium Level 142 Potassium Level 3.5 Chloride Level 104 Carbon Dioxide Level 29 Anion Gap 13 Blood Urea Nitrogen 35 H Creatinine 0.73 Glucose Level 107 Calcium Level 7.8 L Phosphorus Level 2.9 Magnesium Level 2.4 Blood Gas Specimen Source Blood arterial Arterial Blood Date Drawn 04/02/2017 8:00:23 AM Arterial Blood pH (Temp corrected) 7.499 H Arterial Blood pCO2 (Temp correct) 34.4 L Arterial Blood pO2 (Temp corrected) 69.8 L Arterial Blood HCO3 26.2 H Arterial Blood Base Excess 3.0 Arterial Blood Oxygen Saturation 93.[address] Test N/A Arterial Blood Gas Puncture Site A-Line Arterial Blood Carboxyhemoglobin 0.3 Arterial Blood Methemoglobin 0.3 Blood Gas A-a O2 Differential 82.0 H Oxyhemoglobin Percent 93.0 Total Hemoglobin 10.0 L Blood Gas Temperature 37.0 Blood Gas Modality NASAL CANNULA FiO2 27.0 Blood Gas Notified Whom TM Blood Gas Notified Time 04/02/2017 9:05:12 AM Test 04/02/17 08:58 Bedside Glucose 103 Medications Medications Current Medications Phenylephrine HCl/ Dextrose (Brian-Syneph/D5W) 500 ml @ 75 mls/hr TITRATE IV Last administered on 03/31/17 04:00; Admin Dose 75 MLS/HR; Start 03/30/17 at 06 :00 Acetaminophen 650 mg 650 mg Q3H PRN [place] ELEVATED TEMPERATURE Last administered on 04/01/17 18:32; Admin Dose 650 MG; Start 03/29/17 at 23:30 Magnesium Sulfate/ Dextrose (Magnesium Sulfate 1 Gm/D5W) 100 ml @ 100 mls/hr PRN PRN IVPB PENDING LAB VALUE Last administered on 03/31/17 00:52; Admin Dose 100 MLS/HR; Start 03/29/17 at 23:30 Hydromorphone HCl (Dilaudid) 0.2 mg Q2H PRN IV PAIN Last administered on 01:39; Admin Dose 0.2 MG; Start 03/30/17 at 00:30 Hydromorphone HCl (Dilaudid) 0.4 mg Q2H PRN IV PAIN Last administered on 17:32; Admin Dose 0.4 MG; Start 03/30/17 at 00:30 Hydromorphone HCl (Dilaudid) 0.2 mg Q15M PRN IV PAIN; Start 03/30/17 at 02:00 Hydromorphone HCl 0.4 mg 0.4 mg Q15M PRN IV PAIN Last administered on 14:38; Admin Dose 0.4 MG; Start 03/30/17 at 02:00 Milrinone Lactate 100 ml @ 7.526 mls/ hr TITRATE IV Last administered on 23:31; Admin Dose 5.5 MLS/HR; Start 03/30/17 at 02:05 Propofol (Diprivan) 100 ml @ 2.007 mls/ hr Q12H IV Last administered on 14:24; Admin Dose 6.021 MLS/HR; Start 03/30/17 at 02:20 Pantoprazole 40 mg 40 mg DAILY@06 IV Last administered on 04/02/17 05:13; Admin Dose 40 MG; Start 03/31/17 at 06:00 Albumin Human 250 ml @ 250 mls/hr PRN PRN IV NOTE Last administered on 03:01; Admin Dose 250 MLS/HR; Start 03/30/17 at 09:00 Miscellaneous Information 1 ea NOTE XX ; Start 03/30/17 at 09:30 Glucose (Glutose) 15 gm Q15M PRN PO DECREASED GLUCOSE; Start 03/30/17 at 09:30 Glucose (Glutose) 22.5 gm Q15M PRN PO DECREASED GLUCOSE; Start 03/30/17 at 09: 30 Dextrose (D50w Syringe) 25 ml Q15M PRN IV DECREASED GLUCOSE; Start 03/30/17 at 09:30 Dextrose (D50w Syringe) 50 ml Q15M PRN IV DECREASED GLUCOSE; Start 03/30/17 at 09:30 Glucagon (Glucagen) 1 mg Q15M PRN IM DECREASED GLUCOSE; Start 03/30/17 at 09:30 Glucose (Glutose) 15 gm Q15M PRN BUCCAL DECREASED GLUCOSE; Start 03/30/17 at 09 :30 Diagnostic Test (Pha) (Accu-Chek) 1 ea Q1H XX Last administered on 04/02/17 06 :10; Admin Dose 1 EA; Start 03/30/17 at 09:30 Dextrose (D50w Syringe) 25 ml Q15M PRN IV Till BS 80 mg/dL or above x2; Start 03/30/17 at 09:30 Dextrose (D50w Syringe) 50 ml Q15M PRN IV Till BS 80 mg/dL or above x2; Start 03/30/17 at 09:30 Lorazepam 2 mg 2 mg Q2H PRN IV AGITATION/ANXIETY Last administered on 17:03; Admin Dose 2 MG; Start 03/30/17 at 12:00 Dextrose/Sodium Chloride (D5-NS) 1,000 ml @ 60 mls/hr [id number] IV Last administered on 04/02/17 10:17; Admin Dose 60 MLS/HR; Start 03/31/17 at 07:30 Atorvastatin Calcium 40 mg 40 mg HS NGT ; Start 03/31/17 at 21:00 Meropenem 100 ml @ 200 mls/hr Q8 IVPB Last administered on 04/02/17 05:13; Admin Dose 200 MLS/HR; Start 04/01/17 at 10:00 Vancomycin HCl (Vancocin) 250 ml @ 125 mls/hr Q12H IVPB Last administered on 22:54; Admin Dose 125 MLS/HR; Start 04/01/17 at 23:00 Miscellaneous Information (*Rx Drug Level Order Reminder*) VANCO TR LEVEL PRIOR... ONCE ONCE XX ; Start 04/02/17 at 22:00; Stop 04/02/17 at 22:01 Hydralazine HCl (Apresoline) 10 mg Q4H PRN IV ELEVATED BLOOD PRESSURE; Start at 20:00 CHRIS MARIANO MD April 02, 2017 10:59
[2017-04-02] MEDS: VANCOMYCIN 1 GM in NS 250 ML IVPB SCH (11:00)
--- NOTE | 2017-04-02 11:15 | CONS ---
Date/Time of Note Date/Time of Note DATE: 04/02/17 TIME: 11:13 Consult Date/Type/Reason Admit Date/Time March 29, 2017 at 09:30 Initial Consult Date 04/01/17 Type of Consultation: Pulm Ordering Provider: RUBI BROCK MD Subjective Doing better; working with PT/OT Objective Vital Signs Date Time Temp Pulse Resp B/P Pulse Ox O2 Delivery O2 Flow Rate FiO2 04/02/17 09:00 99.2 96 24 126/81 98 Nasal Cannula 04/02/17 08:00 2.0 04/01/17 17:10 40 Intake and Output 04/01/17 04/01/17 04/02/17 15:00 23:00 07:00 Intake Total 933.39 ml 239.5 ml 730 ml Output Total 1451 ml 1195 ml 1320 ml Balance -517.61 ml -955.5 ml -590 ml Exam HEENT: Pupils equal, round, and reactive to light. CARDIAC: S1, S2, 1/6 systolic ejection murmur CHEST: Diminished air entry bilaterally. ABDOMEN: Mildly distended. Bowel sounds present no guarding or rebound EXTREMITIES: No cyanosis, clubbing edema +1 Results/Medications Result Diagram: 04/02/17 0520 04/02/17 0520 Results 24 hrs Laboratory Tests Test 04/01/17 12:21 04/01/17 12:25 04/01/17 12:28 04/01/17 14:20 Bedside Glucose 115 132 Urine Color LT. YELLOW Urine Clarity CLEAR Urine pH 5.0 Urine Specific [place] 1.015 Urine Ketones NEGATIVE Urine Nitrite NEGATIVE Urine Bilirubin NEGATIVE Urine Urobilinogen 0.2 E.U./dL Urine Leukocyte Esterase NEGATIVE Urine Hemoglobin NEGATIVE Urine Glucose NEGATIVE Urine Total Protein NEGATIVE Lactic Acid Level 1.1 Test 04/01/17 16:56 04/01/17 18:27 04/01/17 19:00 04/01/17 19:10 Bedside Glucose 121 118 Potassium Level 4.1 Magnesium Level 2.2 Blood Gas Specimen Source Blood arterial Arterial Blood Date Drawn 04/01/2017 7:10:17 PM Arterial Blood pH (Temp corrected) 7.468 H Arterial Blood pCO2 (Temp correct) 34.9 L Arterial Blood pO2 (Temp corrected) 120.5 H Arterial Blood HCO3 24.7 Arterial Blood Base Excess 1.3 Arterial Blood Oxygen Saturation 98.[address] Test N/A Arterial Blood Gas Puncture Site A-Line Arterial Blood Carboxyhemoglobin 0.3 Arterial Blood Methemoglobin 0.3 Blood Gas A-a O2 Differential 124.6 H Oxyhemoglobin Percent 97.5 Total Hemoglobin 11.5 L Blood Gas Temperature 37.0 Blood Gas Actual Respiration Rate 21 Blood Gas Modality VENT - CPAP FiO2 40.0 Blood Gas Tidal Volume 557.0 Blood Gas Pressure Support 10 Blood Gas Notified Whom SHORTY Blood Gas Notified Time 04/01/2017 7:17:10 PM Test 04/01/17 21:02 04/01/17 22:49 04/02/17 00:39 04/02/17 02:28 Bedside Glucose 129 101 103 106 Test 04/02/17 04:59 04/02/17 05:20 04/02/17 06:06 04/02/17 07:00 Bedside Glucose 111 104 White Blood Count 17.2 H Red Blood Count 3.06 L Hemoglobin 9.5 L Hematocrit 28.5 L Mean Corpuscular Volume 93.1 Mean Corpuscular Hemoglobin 31.0 Mean Corpuscular Hemoglobin Concent 33.3 Red Cell Distribution Width 14.8 H Platelet Count 57 L Mean Platelet Volume 13.0 H Neutrophils % 83.3 H Lymphocytes % 6.4 L Monocytes % 8.7 Eosinophils % 0.5 Basophils % 0.2 Nucleated Red Blood Cells % 0.0 Neutrophils # 14.3 H Lymphocytes # 1.1 Monocytes # 1.5 H Eosinophils # 0.1 Basophils # 0.0 Nucleated Red Blood Cells # 0.0 Sodium Level 142 Potassium Level 3.5 Chloride Level 104 Carbon Dioxide Level 29 Anion Gap 13 Blood Urea Nitrogen 35 H Creatinine 0.73 Glucose Level 107 Calcium Level 7.8 L Phosphorus Level 2.9 Magnesium Level 2.4 Blood Gas Specimen Source Blood arterial Arterial Blood Date Drawn 04/02/2017 8:00:23 AM Arterial Blood pH (Temp corrected) 7.499 H Arterial Blood pCO2 (Temp correct) 34.4 L Arterial Blood pO2 (Temp corrected) 69.8 L Arterial Blood HCO3 26.2 H Arterial Blood Base Excess 3.0 Arterial Blood Oxygen Saturation 93.[address] Test N/A Arterial Blood Gas Puncture Site A-Line Arterial Blood Carboxyhemoglobin 0.3 Arterial Blood Methemoglobin 0.3 Blood Gas A-a O2 Differential 82.0 H Oxyhemoglobin Percent 93.0 Total Hemoglobin 10.0 L Blood Gas Temperature 37.0 Blood Gas Modality NASAL CANNULA FiO2 27.0 Blood Gas Notified Whom TM Blood Gas Notified Time 04/02/2017 9:05:12 AM Test 04/02/17 08:58 Bedside Glucose 103 Medications Current Medications Phenylephrine HCl/ Dextrose (Brian-Syneph/D5W) 500 ml @ 75 mls/hr TITRATE IV Last administered on 03/31/17 04:00; Admin Dose 75 MLS/HR; Start 03/30/17 at 06 :00 Acetaminophen 650 mg 650 mg Q3H PRN [place] ELEVATED TEMPERATURE Last administered on 04/01/17 18:32; Admin Dose 650 MG; Start 03/29/17 at 23:30 Magnesium Sulfate/ Dextrose (Magnesium Sulfate 1 Gm/D5W) 100 ml @ 100 mls/hr PRN PRN IVPB PENDING LAB VALUE Last administered on 03/31/17 00:52; Admin Dose 100 MLS/HR; Start 03/29/17 at 23:30 Hydromorphone HCl (Dilaudid) 0.2 mg Q2H PRN IV PAIN Last administered on 01:39; Admin Dose 0.2 MG; Start 03/30/17 at 00:30 Hydromorphone HCl (Dilaudid) 0.4 mg Q2H PRN IV PAIN Last administered on 17:32; Admin Dose 0.4 MG; Start 03/30/17 at 00:30 Hydromorphone HCl (Dilaudid) 0.2 mg Q15M PRN IV PAIN; Start 03/30/17 at 02:00 Hydromorphone HCl 0.4 mg 0.4 mg Q15M PRN IV PAIN Last administered on 14:38; Admin Dose 0.4 MG; Start 03/30/17 at 02:00 Milrinone Lactate 100 ml @ 7.526 mls/ hr TITRATE IV Last administered on 23:31; Admin Dose 5.5 MLS/HR; Start 03/30/17 at 02:05 Propofol (Diprivan) 100 ml @ 2.007 mls/ hr Q12H IV Last administered on 14:24; Admin Dose 6.021 MLS/HR; Start 03/30/17 at 02:20 Pantoprazole 40 mg 40 mg DAILY@06 IV Last administered on 04/02/17 05:13; Admin Dose 40 MG; Start 03/31/17 at 06:00 Albumin Human 250 ml @ 250 mls/hr PRN PRN IV NOTE Last administered on 03:01; Admin Dose 250 MLS/HR; Start 03/30/17 at 09:00 Miscellaneous Information 1 ea NOTE XX ; Start 03/30/17 at 09:30 Glucose (Glutose) 15 gm Q15M PRN PO DECREASED GLUCOSE; Start 03/30/17 at 09:30 Glucose (Glutose) 22.5 gm Q15M PRN PO DECREASED GLUCOSE; Start 03/30/17 at 09: 30 Dextrose (D50w Syringe) 25 ml Q15M PRN IV DECREASED GLUCOSE; Start 03/30/17 at 09:30 Dextrose (D50w Syringe) 50 ml Q15M PRN IV DECREASED GLUCOSE; Start 03/30/17 at 09:30 Glucagon (Glucagen) 1 mg Q15M PRN IM DECREASED GLUCOSE; Start 03/30/17 at 09:30 Glucose (Glutose) 15 gm Q15M PRN BUCCAL DECREASED GLUCOSE; Start 03/30/17 at 09 :30 Diagnostic Test (Pha) (Accu-Chek) 1 ea Q1H XX Last administered on 04/02/17 06 :10; Admin Dose 1 EA; Start 03/30/17 at 09:30 Dextrose (D50w Syringe) 25 ml Q15M PRN IV Till BS 80 mg/dL or above x2; Start 03/30/17 at 09:30 Dextrose (D50w Syringe) 50 ml Q15M PRN IV Till BS 80 mg/dL or above x2; Start 03/30/17 at 09:30 Lorazepam 2 mg 2 mg Q2H PRN IV AGITATION/ANXIETY Last administered on 17:03; Admin Dose 2 MG; Start 03/30/17 at 12:00 Dextrose/Sodium Chloride (D5-NS) 1,000 ml @ 60 mls/hr [id number] IV Last administered on 04/02/17 10:17; Admin Dose 60 MLS/HR; Start 03/31/17 at 07:30 Atorvastatin Calcium 40 mg 40 mg HS NGT ; Start 03/31/17 at 21:00 Meropenem 100 ml @ 200 mls/hr Q8 IVPB Last administered on 04/02/17 05:13; Admin Dose 200 MLS/HR; Start 04/01/17 at 10:00 Vancomycin HCl (Vancocin) 250 ml @ 125 mls/hr Q12H IVPB Last administered on 22:54; Admin Dose 125 MLS/HR; Start 04/01/17 at 23:00 Miscellaneous Information (*Rx Drug Level Order Reminder*) VANCO TR LEVEL PRIOR... ONCE ONCE XX ; Start 04/02/17 at 22:00; Stop 04/02/17 at 22:01 Hydralazine HCl (Apresoline) 10 mg Q4H PRN IV ELEVATED BLOOD PRESSURE; Start at 20:00 Assessment/Plan Additional Assessment/Plan IMP: 1. Status post 5 vessel coronary artery bypass graft surgery and mitral valve replacement 2. s/p Hypoxemic respiratory failure--extubated 3. Pulmonary edema radiographically--improved 4. Leukocytosis concerning for possible line sepsis versus pneumonia RECS: 1. Mobilize OOB/PT/OT 2. Incentive spirometry 3. DVT prophylaxis LD SIN MD April 02, 2017 11:15
--- NOTE | 2017-04-02 11:16 | RADRPT ---
PROCEDURE: XR Chest. CLINICAL INDICATION: Chest tube TECHNIQUE: Single frontal chest x-ray. COMPARISON: 04/01/1970 FINDINGS: [place] catheter has been removed. Right IJ introducer catheter remains in place. Bilateral ches t tubes and mediastinal drainage tube remain in place. Hazy bibasilar pulmonary opacities are gross ly stable. There is no pneumothorax. The patient is status post sternotomy. There is stable mild cardiomegaly. The osseous structures are unremarkable. IMPRESSION: 1. [place]Sonia catheter has been removed. Right IJ introducer catheter remains in place. 2. Bilateral chest tubes and mediastinal drainage tube remain in place. No pneumothorax is identif ied. 3. Hazy bibasilar pulmonary opacities are grossly stable, likely atelectasis and/or small pleural e ffusions. 4. Stable mild cardiomegaly. RPTAT: QQ .Demarcus Loaiza MD, MD Date Time Electronically viewed and signed by .Demarcus Loaiza MD, on 04/02/2017 11:16 .R/
[2017-04-02] MEDS ORDERED: GLUCOSE GEL 15 GRAM TUBE PO PRN ×2 (12:00)
[2017-04-02] MEDS ORDERED: GLUCOSE GEL 15 GRAM TUBE BUCCAL PRN (12:00)
[2017-04-02] MEDS ORDERED: DEXTROSE 50% 50 ML SYRINGE IV PRN ×2 (12:00)
[2017-04-02] MEDS ORDERED: GLUCAGON 1 MG INJ IM PRN (12:00)
[2017-04-02] MEDS: METOPROLOL 25 MG TAB PO SCH ×2 (12:36→20:51)
[2017-04-02] MEDS: INSULIN ASPART [NOVOLOG] 3 ML PEN SC SCH ×2 (17:26→20:55)
--- NOTE | 2017-04-02 18:20 | CONS ---
VIRY CLEMENTS PROJECT DEVELOPMENT LEADER 04/02/17 1820: Date/Time of Note Date/Time of Note DATE: 04/02/17 TIME: 18:18 Assessment/Plan Assessment/Plan Chief Complaint/Hosp Course - Postop sepsis vs SIRS - fever and leukocytosis are improving - CAD s/p CABG x5 on 03/29/2017 - S/p MV replacement 03/29/2017 - S/p Right coronary endarterectomy. - S/p Hypoxemic respiratory failure, extubated 04/01/2017 - Acute decompensated systolic CHF - on IV lasix - Thrombocytopenia Recommendations: - F/u procalcitonin - De-escalate abx: DC vancomycin - Continue empiric meropenem (04/01/2017-) - Trend CBC - Serial CXR - Encourage use of incentive spirometer Management d/w pt and family, [facility] and Dr. Davenport Critical care time spent: 35 min Problems: Consultation Date/Type/Reason Admit Date/Time March 29, 2017 at 09:30 Initial Consult Date 04/01/17 Type of Consultation: Infectious Disease Referring Provider: RUBI BROCK MD 24 HR Interval Summary Free Text/Dictation Remains afebrile, chest tube is out, worked with PT, and pt is OOB for the 2nd time today per VANIA Boss. Denies pain, SOB, n/v/d per daughter Leora; feels tired and asking if he can go back to bed. Exam/Review of Systems Vital Signs Vitals Vital Signs Date Time Temp Pulse Resp B/P Pulse Ox O2 Delivery O2 Flow Rate FiO2 04/02/17 18:00 101 23 130/75 91 Nasal Cannula 2.0 04/02/17 16:00 99.2 04/01/17 17:10 40 Intake and Output 04/01/17 04/01/17 04/02/17 15:00 23:00 07:00 Intake Total 933.39 ml 239.5 ml 730 ml Output Total 1451 ml 1195 ml 1320 ml Balance -517.61 ml -955.5 ml -590 ml Exam Constitutional: alert, oriented, well developed Psych: nl mood/affect Head: atraumatic, normocephalic Eyes: nl sclera Neck: other (Right IJ cordis intact), supple Respiratory: diminished breath sounds Cardiovascular: nl pulses, regular rate and rhythm Gastrointestinal: non-tender, soft Genitourinary - Male: other (Helm catheter is in place) Musculoskeletal: nl extremities to inspection Extremities: No clubbing, No cyanosis Neurological: nl mental status, nl speech (Primarily Palestinian speaking) Skin: nl turgor, other (sternal wound and old chest tube sites with dressing c/ d/i) Results Result Diagram: 04/02/17 0520 04/02/17 0520 Results 24 hrs Laboratory Tests Test 04/01/17 18:27 04/01/17 19:00 04/01/17 19:10 04/01/17 21:02 Bedside Glucose 118 129 Potassium Level 4.1 Magnesium Level 2.2 Blood Gas Specimen Source Blood arterial Arterial Blood Date Drawn 04/01/2017 7:10:17 PM Arterial Blood pH (Temp corrected) 7.468 H Arterial Blood pCO2 (Temp correct) 34.9 L Arterial Blood pO2 (Temp corrected) 120.5 H Arterial Blood HCO3 24.7 Arterial Blood Base Excess 1.3 Arterial Blood Oxygen Saturation 98.[address] Test N/A Arterial Blood Gas Puncture Site A-Line Arterial Blood Carboxyhemoglobin 0.3 Arterial Blood Methemoglobin 0.3 Blood Gas A-a O2 Differential 124.6 H Oxyhemoglobin Percent 97.5 Total Hemoglobin 11.5 L Blood Gas Temperature 37.0 Blood Gas Actual Respiration Rate 21 Blood Gas Modality VENT - CPAP FiO2 40.0 Blood Gas Tidal Volume 557.0 Blood Gas Pressure Support 10 Blood Gas Notified Whom DYOON Blood Gas Notified Time 04/01/2017 7:17:10 PM Test 04/01/17 22:49 04/02/17 00:39 04/02/17 02:28 04/02/17 04:59 Bedside Glucose 101 103 106 111 Test 04/02/17 05:20 04/02/17 06:06 04/02/17 07:00 04/02/17 08:58 White Blood Count 17.2 H Red Blood Count 3.06 L Hemoglobin 9.5 L Hematocrit 28.5 L Mean Corpuscular Volume 93.1 Mean Corpuscular Hemoglobin 31.0 Mean Corpuscular Hemoglobin Concent 33.3 Red Cell Distribution Width 14.8 H Platelet Count 57 L Mean Platelet Volume 13.0 H Neutrophils % 83.3 H Lymphocytes % 6.4 L Monocytes % 8.7 Eosinophils % 0.5 Basophils % 0.2 Nucleated Red Blood Cells % 0.0 Neutrophils # 14.3 H Lymphocytes # 1.1 Monocytes # 1.5 H Eosinophils # 0.1 Basophils # 0.0 Nucleated Red Blood Cells # 0.0 Sodium Level 142 Potassium Level 3.5 Chloride Level 104 Carbon Dioxide Level 29 Anion Gap 13 Blood Urea Nitrogen 35 H Creatinine 0.73 Glucose Level 107 Calcium Level 7.8 L Phosphorus Level 2.9 Magnesium Level 2.4 Bedside Glucose 104 103 Blood Gas Specimen Source Blood arterial Arterial Blood Date Drawn 04/02/2017 8:00:23 AM Arterial Blood pH (Temp corrected) 7.499 H Arterial Blood pCO2 (Temp correct) 34.4 L Arterial Blood pO2 (Temp corrected) 69.8 L Arterial Blood HCO3 26.2 H Arterial Blood Base Excess 3.0 Arterial Blood Oxygen Saturation 93.[address] Test N/A Arterial Blood Gas Puncture Site A-Line Arterial Blood Carboxyhemoglobin 0.3 Arterial Blood Methemoglobin 0.3 Blood Gas A-a O2 Differential 82.0 H Oxyhemoglobin Percent 93.0 Total Hemoglobin 10.0 L Blood Gas Temperature 37.0 Blood Gas Modality NASAL CANNULA FiO2 27.0 Blood Gas Notified Whom TM Blood Gas Notified Time 04/02/2017 9:05:12 AM Test 04/02/17 12:25 04/02/17 17:25 Bedside Glucose 111 95 Medications Medications Current Medications Acetaminophen 650 mg 650 mg Q3H PRN [place] ELEVATED TEMPERATURE Last administered on 04/01/17 18:32; Admin Dose 650 MG; Start 03/29/17 at 23:30 Magnesium Sulfate/ Dextrose (Magnesium Sulfate 1 Gm/D5W) 100 ml @ 100 mls/hr PRN PRN IVPB PENDING LAB VALUE Last administered on 03/31/17 00:52; Admin Dose 100 MLS/HR; Start 03/29/17 at 23:30 Hydromorphone HCl (Dilaudid) 0.2 mg Q2H PRN IV PAIN Last administered on 01:39; Admin Dose 0.2 MG; Start 03/30/17 at 00:30 Hydromorphone HCl (Dilaudid) 0.4 mg Q2H PRN IV PAIN Last administered on 17:32; Admin Dose 0.4 MG; Start 03/30/17 at 00:30 Pantoprazole 40 mg 40 mg DAILY@06 IV Last administered on 04/02/17 05:13; Admin Dose 40 MG; Start 03/31/17 at 06:00 Albumin Human 250 ml @ 250 mls/hr PRN PRN IV NOTE Last administered on 03:01; Admin Dose 250 MLS/HR; Start 03/30/17 at 09:00 Lorazepam (Ativan) 2 mg Q2H PRN IV AGITATION/ANXIETY Last administered on 17:03; Admin Dose 2 MG; Start 03/30/17 at 12:00 Atorvastatin Calcium 40 mg 40 mg HS NGT ; Start 03/31/17 at 21:00 Meropenem 100 ml @ 200 mls/hr Q8 IVPB Last administered on 04/02/17 14:36; Admin Dose 200 MLS/HR; Start 04/01/17 at 10:00 Vancomycin HCl (Vancocin) 250 ml @ 125 mls/hr Q12H IVPB Last administered on 11:00; Admin Dose 125 MLS/HR; Start 04/01/17 at 23:00 Miscellaneous Information (*Rx Drug Level Order Reminder*) VANCO TR LEVEL PRIOR... ONCE ONCE XX ; Start 04/02/17 at 22:00; Stop 04/02/17 at 22:01 Hydralazine HCl (Apresoline) 10 mg Q4H PRN IV ELEVATED BLOOD PRESSURE; Start at 20:00 Metoprolol Tartrate (Lopressor) 25 mg BID PO Last administered on 04/02/17 12: 36; Admin Dose 25 MG; Start 04/02/17 at 12:00 Diagnostic Test (Pha) (Accu-Chek) 1 ea 02 XX ; Start 04/03/17 at 02:00 Miscellaneous Information 1 ea NOTE XX ; Start 04/02/17 at 12:00 Glucose (Glutose) 15 gm Q15M PRN PO DECREASED GLUCOSE; Start 04/02/17 at 12:00 Glucose (Glutose) 22.5 gm Q15M PRN PO DECREASED GLUCOSE; Start 04/02/17 at 12: 00 Dextrose (D50w Syringe) 25 ml Q15M PRN IV DECREASED GLUCOSE; Start 04/02/17 at 12:00 Dextrose (D50w Syringe) 50 ml Q15M PRN IV DECREASED GLUCOSE; Start 04/02/17 at 12:00 Glucagon (Glucagen) 1 mg Q15M PRN IM DECREASED GLUCOSE; Start 04/02/17 at 12:00 Glucose (Glutose) 15 gm Q15M PRN BUCCAL DECREASED GLUCOSE; Start 04/02/17 at 12 :00 Procedures Procedures CXR 04/02/2017: 1. [place]-Sonia catheter has been removed. Right IJ introducer catheter remains in place. 2. Bilateral chest tubes and mediastinal drainage tube remain in place. No pneumothorax is identified. 3. Hazy bibasilar pulmonary opacities are grossly stable, likely atelectasis and/or small pleural effusions. 4. Stable mild cardiomegaly. RIKKI DAVENPORT M.D. 04/03/17 1113: Assessment/Plan Assessment/Plan Additional Assessment/Plan Issac attestation: I discussed the management with WILLIAM Clements and agree with above Exam/Review of Systems Results Result Diagram: 04/02/17 0520 04/02/17 0520 VIRY CLEMENTS NP April 02, 2017 18:20 RIKKI DAVENPORT M.D. April 03, 2017 11:13
[2017-04-02] MEDS: ATORVASTATIN 40 MG TAB NGT SCH (20:50)
--- NOTE | 2017-04-02 23:20 | CONS ---
DATE OF ADMISSION: 03/29/2017 DATE OF CONSULTATION: 04/02/2017 REFERRING PHYSICIAN: Dr. Littlejohn. Thank you for asking me to see the patient with you. HISTORY OF PRESENT ILLNESS: Patient has a past medical history of coronary artery disease, multiple vessel disease, status post coronary artery bypass graft done on the . The patient is alert, aw gonzalo, following simple commands, surrounded by his family. CURRENT MEDICATIONS: Include: 1. Lopressor 25 mg once a day. 2. Vancomycin q.12h. divided by the pharmacy. 3. Lasix 40 mg twice a day as needed. 4. Lipitor 40 mg once a day. 5. Protonix 40 mg once a day. 6. Ativan 2 mg every 2 hours as needed. 7. Dilaudid 0.2 mg every 2 hours as needed. PHYSICAL EXAMINATION: GENERAL: On exam today, the patient is alert, awake, following simple commands, accompanied by his family. CRANIAL NERVES: Cranial nerve II: Pupils equal on both sides, reactive to light. Cranial nerves I II, IV, and : Extraocular muscles intact. Cranial nerve V: Equal sensation to face. Cranial ne rve VII: Symmetrical face. Cranial nerve VIII: Decreased hearing bilaterally. X: Elevates palate . Cranial nerve XI: Elevates shoulder 5/5. Cranial nerve XII: Straight tongue. MOTOR: Moving both upper and lower extremities against gravity. Sensation decreased for glove and sock area for light touch and temperature. COORDINATION: [id number] test intact. HEART: Regular rate and rhythm. LUNGS: Equal breath sounds. ABDOMEN: Soft, relaxed, nondistended. No tenderness. ASSESSMENT AND PLAN: 1. The patient is a 61-year-old status post coronary artery disease with graft. The patient follow ing simple commands without difficulty. 2. History of hypertension. Keep the blood pressure at the level of 140/90 to avoid any stroke act ivity. 3. History of diabetes. Follow up the patient with hemoglobin A1c. Sliding scale insulin. Accu-C hek twice a day. 4. History of metabolic syndrome with obesity. We will follow up the patient with dietitian consul t. 5. Underlying infection, with the patient is followed by infectious disease. Again, thank you for asking me to see the patient with you. Dictated By: LD MADISON/NTS Conf#: [id number] [facility]#: [id number]
[2017-04-03] VITALS (21 sets, daily range): BP systolic 115–138; BP diastolic 64–102; PULSE 64–103; RESP 16–35
[2017-04-03] MEDS: ACCU-CHEK XX SCH (02:00)
[2017-04-03] MEDS: PANTOPRAZOLE 40 MG INJ IV SCH (05:36)
[2017-04-03] MEDS: MEROPENEM 1 GM/100 ML (PMX) 100 ML IVPB SCH ×3 (05:36→21:31)
[2017-04-03] MEDS: FUROSEMIDE 40 MG INJ IV SCH ×2 (05:36→18:12)
[2017-04-03] MEDS: INSULIN ASPART [NOVOLOG] 3 ML PEN SC SCH ×4 (07:35→21:00)
[2017-04-03] MEDS: METOPROLOL 25 MG TAB PO SCH ×2 (08:39→21:30)
[2017-04-03 08:48] LABS: ADD SCAN DIFF NO
[2017-04-03 08:50] LABS: ABNORMAL IP MESSAGE 1; BASOPHILS % 0.2 % (0.0-2.0); EOSINOPHILS # 0.2 10^3/ul (0.0-0.5); EOSINOPHILS % 1.3 % (0.0-7.0); HEMATOCRIT 29.6 % (42.0-52.0); LYMPHOCYTES # 1.2 10^3/ul (0.8-2.9); MEAN CORPUSCULAR HEMOGLOBIN 31.2 pg (29.0-33.0); MEAN CORPUSCULAR HGB CONC 33.8 g/dl (32.0-37.0); MEAN CORPUSCULAR VOLUME 92.2 fl (82.0-101.0); MEAN PLATELET VOLUME 12.4 fl (7.4-10.4); MONOCYTE # 1.5 10^3/ul (0.3-0.9); MONOCYTES % 9.1 % (0.0-11.0); NEUTROPHIL # 13.3 10^3/ul (1.6-7.5); NEUTROPHILS % 81.6 % (39.0-77.0); PLATELET COUNT 96 10^3/UL (140-415); RED BLOOD COUNT 3.21 10^6/ul (4.70-6.10); RED CELL DISTRIBUTION WIDTH 14.7 % (11.5-14.5); WHITE BLOOD COUNT 16.4 10^3/ul (4.8-10.8)
[2017-04-03 09:02] LABS: POTASSIUM 3.1 mmol/L (3.5-5.1)
[2017-04-03 09:05] LABS: CREATININE 0.75 mg/dl (0.61-1.24)
[2017-04-03 09:06] LABS: CALCIUM 8.4 mg/dl (8.4-10.2); MAGNESIUM 2.2 mg/dl (1.7-2.5)
[2017-04-03] MEDS: POTASSIUM CHLORIDE 50 ML IVPB PRN ×3 (09:39→12:13)
--- NOTE | 2017-04-03 10:21 | PN ---
DATE: 04/03/2017 SUBJECTIVE: The patient is alert, feels somewhat stronger today. PHYSICAL EXAMINATION: GENERAL: He is in no distress, resting comfortably in a hospital bed. VITAL SIGNS: Temperature 99.2, pulse 97, blood pressure 123/70. NECK: Post-sternotomy, no jugular venous distention. LUNGS: Decreased breath sounds bilaterally. ABDOMEN: Soft. EXTREMITIES: Reveal no edema. Helm catheter is in place. CURRENT MEDICATIONS: Currently administered in the hospital 1. Insulin. 2. Metoprolol 25 mg b.i.d. 3. Furosemide 40 mg IV b.i.d. 4. Hydralazine. 5. Meropenem. 6. Atorvastatin. 7. Pantoprazole 8. Lorazepam. LABORATORY RESULTS: White count 16.4, hematocrit 29.6, platelet count 96, sodium 141, potassium 3.1 , BUN 39, creatinine 0.7. ASSESSMENT: Coronary artery disease status post coronary artery bypass graft x5 as well as mitral v alve replacement, respiratory failure, ITP, congestive heart failure. The patient improved slowly. Blood pressure stable on Furosemide, potassium is being replaced. Platelets are improving. Dictated By: LORIE ORDOÑEZ/CONCEPCION Conf#: [id number] DID#: [id number]
--- NOTE | 2017-04-03 10:50 | PN ---
Date/Time of Note Date/Time of Note DATE: 04/03/17 TIME: 10:50 Assessment/Plan VTE Prophylaxis VTE Prophylaxis Intervention: other Lines/Catheters IV Catheter Type (from Nrs): Cordis Urinary Cath still in place: Yes Reason Cath still needed: skin wounds contaminated by urine Assessment/Plan Chief Complaint/Hosp Course - Coronary artery disease status post CABG [address] Littlejohn - Status post mitral valve replacement - Status post right coronary endarterectomy - Respiratory failure, Dr. Zafar is following in pulmonology consultation, doing better - Acute decompensated systolic congestive heart failure, Dr. Chilel is following in cardiology consultation. Continue Lasix monitor electrolytes. Problems: Subjective 24 Hr Interval Summary Free Text/Dictation Patient doing ok but complains of insomnia Exam/Review of Systems Vital Signs Vitals Vital Signs Date Time Temp Pulse Resp B/P Pulse Ox O2 Delivery O2 Flow Rate FiO2 04/03/17 09:00 97 29 123/70 98 Nasal Cannula 04/03/17 08:29 2.0 04/03/17 07:00 99.2 04/01/17 17:10 40 Intake and Output 04/02/17 04/02/17 04/03/17 15:00 23:00 07:00 Intake Total 820.8 ml 350 ml 720 ml Output Total 611 ml 1139 ml 1329 ml Balance 209.8 ml -789 ml -609 ml Exam Constitutional: well developed Head: atraumatic, normocephalic Neck: supple Respiratory: clear to auscultation Cardiovascular: regular rate and rhythm Gastrointestinal: non-tender, soft Extremities: normal pulses Results Result Diagram: 04/03/17 0844 04/03/17 0844 Results 24 hrs Laboratory Tests Test 04/02/17 12:25 04/02/17 17:25 04/02/17 20:54 04/02/17 22:50 Bedside Glucose 111 95 101 Vancomycin Level Trough 8.8 L Test 04/03/17 02:17 04/03/17 07:49 04/03/17 08:44 Bedside Glucose 105 105 White Blood Count 16.4 H Red Blood Count 3.21 L Hemoglobin 10.0 L Hematocrit 29.6 L Mean Corpuscular Volume 92.2 Mean Corpuscular Hemoglobin 31.2 Mean Corpuscular Hemoglobin Concent 33.8 Red Cell Distribution Width 14.7 H Platelet Count 96 #L Mean Platelet Volume 12.4 H Neutrophils % 81.6 H Lymphocytes % 7.0 L Monocytes % 9.1 Eosinophils % 1.3 Basophils % 0.2 Nucleated Red Blood Cells % 0.0 Neutrophils # 13.3 H Lymphocytes # 1.2 Monocytes # 1.5 H Eosinophils # 0.2 Basophils # 0.0 Nucleated Red Blood Cells # 0.0 Sodium Level 141 Potassium Level 3.1 L Chloride Level 100 Carbon Dioxide Level 29 Anion Gap 15 Blood Urea Nitrogen 39 H Creatinine 0.75 Glucose Level 137 Calcium Level 8.4 Magnesium Level 2.2 Medications Medications Current Medications Acetaminophen 650 mg 650 mg Q3H PRN [place] ELEVATED TEMPERATURE Last administered on 04/01/17 18:32; Admin Dose 650 MG; Start 03/29/17 at 23:30 Magnesium Sulfate/ Dextrose (Magnesium Sulfate 1 Gm/D5W) 100 ml @ 100 mls/hr PRN PRN IVPB PENDING LAB VALUE Last administered on 03/31/17 00:52; Admin Dose 100 MLS/HR; Start 03/29/17 at 23:30 Hydromorphone HCl (Dilaudid) 0.2 mg Q2H PRN IV PAIN Last administered on 01:39; Admin Dose 0.2 MG; Start 03/30/17 at 00:30 Hydromorphone HCl (Dilaudid) 0.4 mg Q2H PRN IV PAIN Last administered on 17:32; Admin Dose 0.4 MG; Start 03/30/17 at 00:30 Pantoprazole 40 mg 40 mg DAILY@06 IV Last administered on 04/03/17 05:36; Admin Dose 40 MG; Start 03/31/17 at 06:00 Albumin Human 250 ml @ 250 mls/hr PRN PRN IV NOTE Last administered on 03:01; Admin Dose 250 MLS/HR; Start 03/30/17 at 09:00 Lorazepam (Ativan) 2 mg Q2H PRN IV AGITATION/ANXIETY Last administered on 17:03; Admin Dose 2 MG; Start 03/30/17 at 12:00 Atorvastatin Calcium 40 mg 40 mg HS NGT Last administered on 04/02/17 20:50; Admin Dose 40 MG; Start 03/31/17 at 21:00 Meropenem (Merrem 1 Gm/100 ml (Pmx)) 100 ml @ 200 mls/hr Q8 IVPB Last administered on 04/03/17 05:36; Admin Dose 200 MLS/HR; Start 04/01/17 at 10:00 Hydralazine HCl (Apresoline) 10 mg Q4H PRN IV ELEVATED BLOOD PRESSURE; Start at 20:00 Metoprolol Tartrate (Lopressor) 25 mg BID PO Last administered on 04/03/17 08: 39; Admin Dose 25 MG; Start 04/02/17 at 12:00 Diagnostic Test (Pha) (Accu-Chek) 1 ea 02 XX ; Start 04/03/17 at 02:00 Miscellaneous Information 1 ea NOTE XX ; Start 04/02/17 at 12:00 Glucose (Glutose) 15 gm Q15M PRN PO DECREASED GLUCOSE; Start 04/02/17 at 12:00 Glucose (Glutose) 22.5 gm Q15M PRN PO DECREASED GLUCOSE; Start 04/02/17 at 12: 00 Dextrose (D50w Syringe) 25 ml Q15M PRN IV DECREASED GLUCOSE; Start 04/02/17 at 12:00 Dextrose (D50w Syringe) 50 ml Q15M PRN IV DECREASED GLUCOSE; Start 04/02/17 at 12:00 Glucagon (Glucagen) 1 mg Q15M PRN IM DECREASED GLUCOSE; Start 04/02/17 at 12:00 Glucose (Glutose) 15 gm Q15M PRN BUCCAL DECREASED GLUCOSE; Start 04/02/17 at 12 :00 Potassium Chloride (Klor-Con 20) 40 meq ONCE ONCE PO ; Start 04/03/17 at 13:00 ; Stop 04/03/17 at 13:01 CATARINO GREGORY April 03, 2017 10:50
--- NOTE | 2017-04-03 11:16 | CONS ---
Date/Time of Note Date/Time of Note DATE: 04/03/17 TIME: 11:14 Assessment/Plan Assessment/Plan Chief Complaint/Hosp Course assessment/impression - Postop sepsis of unknown etiology vs SIRS - fever and leukocytosis are improving - CAD s/p CABG x5 on 03/29/2017 - S/p MV replacement 03/29/2017 - S/p R coronary endarterectomy. - S/p Hypoxemic respiratory failure, extubated 04/01/2017 - Acute decompensated systolic CHF - on IV lasix - Thrombocytopenia recommendations: - repeat pancultures if temp >100.4F - thrombocytopenia: hepatitis screen - d/c Helm catheter if able - continue empiric meropenem (04/01/2017-); IV vancomycin was discontinued for antibiotic de-escalation on 04/02/2017 management d/w Pt, his daughter, and RN the critical care time I took to care for this Pt today was from 1115 to 1150 Problems: Consultation Date/Type/Reason Admit Date/Time March 29, 2017 at 09:30 Initial Consult Date 04/01/17 Type of Consultation: Infectious Disease Referring Provider: RUBI BROCK MD 24 HR Interval Summary Constitutional: improved Detailed Summary Eyes: no complaints ENT: no complaints Respiratory: pain (post-op pain in the chest upon deep inspiration), No cough, No shortness of breath, No sputum Cardiovascular: no complaints Gastrointestinal: no complaints Genitourinary: other (FC) Musculoskeletal: no complaints Skin: no complaints Neurologic: no complaints Psychological: no complaints Exam/Review of Systems Vital Signs Vitals Vital Signs Date Time Temp Pulse Resp B/P Pulse Ox O2 Delivery O2 Flow Rate FiO2 04/03/17 09:00 97 29 123/70 98 Nasal Cannula 04/03/17 08:29 2.0 04/03/17 07:00 99.2 04/01/17 17:10 40 Intake and Output 04/02/17 04/02/17 04/03/17 15:00 23:00 07:00 Intake Total 820.8 ml 350 ml 720 ml Output Total 611 ml 1139 ml 1329 ml Balance 209.8 ml -789 ml -609 ml Exam Constitutional: alert, oriented, well developed Psych: no complaints Head: atraumatic, normocephalic Eyes: nl conjunctiva, nl lids, nl sclera ENMT: mucosa pink and moist, nl external ears & nose, nl nasal mucosa & septum Neck: supple Respiratory: clear to auscultation, normal air movement Cardiovascular: nl pulses, other (well healing scar in the mid chest), regular rate and rhythm Gastrointestinal: non-tender, soft Genitourinary - Male: other (FC) Extremities: normal pulses, No edema Skin: rash or lesions (surgical scars are well healing) Results Result Diagram: 04/03/1744 04/03/17 0844 Results 24 hrs Laboratory Tests Test 04/02/17 12:25 04/02/17 17:25 04/02/17 20:54 04/02/17 22:50 Bedside Glucose 111 95 101 Vancomycin Level Trough 8.8 L Test 04/03/17 02:17 04/03/17 07:49 04/03/17 08:44 Bedside Glucose 105 105 White Blood Count 16.4 H Red Blood Count 3.21 L Hemoglobin 10.0 L Hematocrit 29.6 L Mean Corpuscular Volume 92.2 Mean Corpuscular Hemoglobin 31.2 Mean Corpuscular Hemoglobin Concent 33.8 Red Cell Distribution Width 14.7 H Platelet Count 96 #L Mean Platelet Volume 12.4 H Neutrophils % 81.6 H Lymphocytes % 7.0 L Monocytes % 9.1 Eosinophils % 1.3 Basophils % 0.2 Nucleated Red Blood Cells % 0.0 Neutrophils # 13.3 H Lymphocytes # 1.2 Monocytes # 1.5 H Eosinophils # 0.2 Basophils # 0.0 Nucleated Red Blood Cells # 0.0 Sodium Level 141 Potassium Level 3.1 L Chloride Level 100 Carbon Dioxide Level 29 Anion Gap 15 Blood Urea Nitrogen 39 H Creatinine 0.75 Glucose Level 137 Calcium Level 8.4 Magnesium Level 2.2 Medications Medications Current Medications Acetaminophen 650 mg 650 mg Q3H PRN [place] ELEVATED TEMPERATURE Last administered on 04/01/17 18:32; Admin Dose 650 MG; Start 03/29/17 at 23:30 Magnesium Sulfate/ Dextrose (Magnesium Sulfate 1 Gm/D5W) 100 ml @ 100 mls/hr PRN PRN IVPB PENDING LAB VALUE Last administered on 03/31/17 00:52; Admin Dose 100 MLS/HR; Start 03/29/17 at 23:30 Hydromorphone HCl (Dilaudid) 0.2 mg Q2H PRN IV PAIN Last administered on 01:39; Admin Dose 0.2 MG; Start 03/30/17 at 00:30 Hydromorphone HCl (Dilaudid) 0.4 mg Q2H PRN IV PAIN Last administered on 17:32; Admin Dose 0.4 MG; Start 03/30/17 at 00:30 Pantoprazole 40 mg 40 mg DAILY@06 IV Last administered on 04/03/17 05:36; Admin Dose 40 MG; Start 03/31/17 at 06:00 Albumin Human 250 ml @ 250 mls/hr PRN PRN IV NOTE Last administered on 03:01; Admin Dose 250 MLS/HR; Start 03/30/17 at 09:00 Lorazepam (Ativan) 2 mg Q2H PRN IV AGITATION/ANXIETY Last administered on 17:03; Admin Dose 2 MG; Start 03/30/17 at 12:00 Atorvastatin Calcium 40 mg 40 mg HS NGT Last administered on 04/02/17 20:50; Admin Dose 40 MG; Start 03/31/17 at 21:00 Meropenem (Merrem 1 Gm/100 ml (Pmx)) 100 ml @ 200 mls/hr Q8 IVPB Last administered on 04/03/17 05:36; Admin Dose 200 MLS/HR; Start 04/01/17 at 10:00 Hydralazine HCl (Apresoline) 10 mg Q4H PRN IV ELEVATED BLOOD PRESSURE; Start at 20:00 Metoprolol Tartrate (Lopressor) 25 mg BID PO Last administered on 04/03/17 08: 39; Admin Dose 25 MG; Start 04/02/17 at 12:00 Diagnostic Test (Pha) (Accu-Chek) 1 ea 02 XX ; Start 04/03/17 at 02:00 Miscellaneous Information 1 ea NOTE XX ; Start 04/02/17 at 12:00 Glucose (Glutose) 15 gm Q15M PRN PO DECREASED GLUCOSE; Start 04/02/17 at 12:00 Glucose (Glutose) 22.5 gm Q15M PRN PO DECREASED GLUCOSE; Start 04/02/17 at 12: 00 Dextrose (D50w Syringe) 25 ml Q15M PRN IV DECREASED GLUCOSE; Start 04/02/17 at 12:00 Dextrose (D50w Syringe) 50 ml Q15M PRN IV DECREASED GLUCOSE; Start 04/02/17 at 12:00 Glucagon (Glucagen) 1 mg Q15M PRN IM DECREASED GLUCOSE; Start 04/02/17 at 12:00 Glucose (Glutose) 15 gm Q15M PRN BUCCAL DECREASED GLUCOSE; Start 04/02/17 at 12 :00 Potassium Chloride (Klor-Con 20) 40 meq ONCE ONCE PO ; Start 04/03/17 at 13:00 ; Stop 04/03/17 at 13:01 Zolpidem Tartrate (Ambien) 5 mg HS PRN PO INSOMNIA; Start 04/03/17 at 11:00 RIKKI AMOS M.D. April 03, 2017 11:16
--- NOTE | 2017-04-03 11:35 | CONS ---
Date/Time of Note Date/Time of Note DATE: 04/03/17 TIME: 11:33 Consult Date/Type/Reason Admit Date/Time March 29, 2017 at 09:30 Initial Consult Date 04/01/17 Type of Consultation: Pulm Ordering Provider: RUBI BROCK MD Subjective Doing well. Stronger and out of bed Objective Vital Signs Date Time Temp Pulse Resp B/P Pulse Ox O2 Delivery O2 Flow Rate FiO2 04/03/17 09:00 97 29 123/70 98 Nasal Cannula 04/03/17 08:29 2.0 04/03/17 07:00 99.2 04/01/17 17:10 40 Intake and Output 04/02/17 04/02/17 04/03/17 15:00 23:00 07:00 Intake Total 820.8 ml 350 ml 720 ml Output Total 611 ml 1139 ml 1329 ml Balance 209.8 ml -789 ml -609 ml Exam HEENT: Pupils equal, round, and reactive to light. CARDIAC: S1, S2, 1/6 systolic ejection murmur CHEST: Diminished BS at bases and rales. ABDOMEN: Mildly distended. Bowel sounds present no guarding or rebound EXTREMITIES: No cyanosis, clubbing edema +1 Results/Medications Result Diagram: 04/03/17 0844 04/03/17 0844 Results 24 hrs Laboratory Tests Test 04/02/17 12:25 04/02/17 17:25 04/02/17 20:54 04/02/17 22:50 Bedside Glucose 111 95 101 Vancomycin Level Trough 8.8 L Test 04/03/17 02:17 04/03/17 07:49 04/03/17 08:44 Bedside Glucose 105 105 White Blood Count 16.4 H Red Blood Count 3.21 L Hemoglobin 10.0 L Hematocrit 29.6 L Mean Corpuscular Volume 92.2 Mean Corpuscular Hemoglobin 31.2 Mean Corpuscular Hemoglobin Concent 33.8 Red Cell Distribution Width 14.7 H Platelet Count 96 #L Mean Platelet Volume 12.4 H Neutrophils % 81.6 H Lymphocytes % 7.0 L Monocytes % 9.1 Eosinophils % 1.3 Basophils % 0.2 Nucleated Red Blood Cells % 0.0 Neutrophils # 13.3 H Lymphocytes # 1.2 Monocytes # 1.5 H Eosinophils # 0.2 Basophils # 0.0 Nucleated Red Blood Cells # 0.0 Sodium Level 141 Potassium Level 3.1 L Chloride Level 100 Carbon Dioxide Level 29 Anion Gap 15 Blood Urea Nitrogen 39 H Creatinine 0.75 Glucose Level 137 Calcium Level 8.4 Magnesium Level 2.2 Medications Current Medications Acetaminophen 650 mg 650 mg Q3H PRN [place] ELEVATED TEMPERATURE Last administered on 04/01/17 18:32; Admin Dose 650 MG; Start 03/29/17 at 23:30 Magnesium Sulfate/ Dextrose (Magnesium Sulfate 1 Gm/D5W) 100 ml @ 100 mls/hr PRN PRN IVPB PENDING LAB VALUE Last administered on 03/31/17 00:52; Admin Dose 100 MLS/HR; Start 03/29/17 at 23:30 Hydromorphone HCl (Dilaudid) 0.2 mg Q2H PRN IV PAIN Last administered on 01:39; Admin Dose 0.2 MG; Start 03/30/17 at 00:30 Hydromorphone HCl (Dilaudid) 0.4 mg Q2H PRN IV PAIN Last administered on 17:32; Admin Dose 0.4 MG; Start 03/30/17 at 00:30 Pantoprazole 40 mg 40 mg DAILY@06 IV Last administered on 04/03/17 05:36; Admin Dose 40 MG; Start 03/31/17 at 06:00 Albumin Human 250 ml @ 250 mls/hr PRN PRN IV NOTE Last administered on 03:01; Admin Dose 250 MLS/HR; Start 03/30/17 at 09:00 Lorazepam (Ativan) 2 mg Q2H PRN IV AGITATION/ANXIETY Last administered on 17:03; Admin Dose 2 MG; Start 03/30/17 at 12:00 Atorvastatin Calcium 40 mg 40 mg HS NGT Last administered on 04/02/17 20:50; Admin Dose 40 MG; Start 03/31/17 at 21:00 Meropenem (Merrem 1 Gm/100 ml (Pmx)) 100 ml @ 200 mls/hr Q8 IVPB Last administered on 04/03/17 05:36; Admin Dose 200 MLS/HR; Start 04/01/17 at 10:00 Hydralazine HCl (Apresoline) 10 mg Q4H PRN IV ELEVATED BLOOD PRESSURE; Start at 20:00 Metoprolol Tartrate (Lopressor) 25 mg BID PO Last administered on 04/03/17t 08: 39; Admin Dose 25 MG; Start 04/02/17 at 12:00 Diagnostic Test (Pha) (Accu-Chek) 1 ea 02 XX ; Start 04/03/17 at 02:00 Miscellaneous Information 1 ea NOTE XX ; Start 04/02/17 at 12:00 Glucose (Glutose) 15 gm Q15M PRN PO DECREASED GLUCOSE; Start 04/02/17 at 12:00 Glucose (Glutose) 22.5 gm Q15M PRN PO DECREASED GLUCOSE; Start 04/02/17 at 12: 00 Dextrose (D50w Syringe) 25 ml Q15M PRN IV DECREASED GLUCOSE; Start 04/02/17 at 12:00 Dextrose (D50w Syringe) 50 ml Q15M PRN IV DECREASED GLUCOSE; Start 04/02/17 at 12:00 Glucagon (Glucagen) 1 mg Q15M PRN IM DECREASED GLUCOSE; Start 04/02/17 at 12:00 Glucose (Glutose) 15 gm Q15M PRN BUCCAL DECREASED GLUCOSE; Start 04/02/17 at 12 :00 Potassium Chloride (Klor-Con 20) 40 meq ONCE ONCE PO ; Start 04/03/17 at 13:00 ; Stop 04/03/17 at 13:01 Zolpidem Tartrate (Ambien) 5 mg HS PRN PO INSOMNIA; Start 04/03/17 at 11:00 Assessment/Plan Additional Assessment/Plan IMP: 1. Status post 5 vessel coronary artery bypass graft surgery and mitral valve replacement 2. s/p Hypoxemic respiratory failure--extubated 3. Pulmonary edema radiographically--improved 4. Leukocytosis concerning for possible line sepsis versus pneumonia RECS: 1. Mobilize OOB/PT/OT 2. Incentive spirometry 3. DVT prophylaxis 4. Keep negative 1-2 L/day 5. Stable for tele LD SIN MD April 03, 2017 11:35
[2017-04-03] MEDS ORDERED: POTASSIUM CHLORIDE (SR) 20 MEQ TAB PO ONE (13:00)
--- NOTE | 2017-04-03 20:42 | PN ---
Date/Time of Note Date/Time of Note DATE: 04/03/17 TIME: 20:42 Assessment/Plan Lines/Catheters IV Catheter Type (from Nrsg): Cordis Helm in Place (from Nrsg): Yes Assessment/Plan Chief Complaint/Hosp Course SP CABG, MVR hemodynamically stable continue IABP Extubated CT DCed to TELE DC planning Problems: Subjective 24 Hr Interval Summary Constitutional: improved Pain Control: mild Exam/Review of Systems Vital Signs Vitals Vital Signs Date Time Temp Pulse Resp B/P Pulse Ox O2 Delivery O2 Flow Rate FiO2 04/03/17 20:00 103 04/03/17 19:33 Nasal Cannula 2.0 04/03/17 19:00 21 122/70 99 04/03/17 16:00 98.9 04/01/17 17:10 40 Intake and Output 04/02/17 04/02/17 04/03/17 15:00 23:00 07:00 Intake Total 820.8 ml 350 ml 720 ml Output Total 611 ml 1139 ml 1329 ml Balance 209.8 ml -789 ml -609 ml Exam ENMT: mucosa pink and moist, nl external ears & nose, nl lips & teeth, nl nasal mucosa & septum Neck: non-tender, supple Respiratory: clear to auscultation, normal air movement Cardiovascular: nl pulses, regular rate and rhythm Results Result Diagram: 04/03/17 0844 04/03/17 0844 TOMEKA DELEON MD April 03, 2017 20:42
[2017-04-03] MEDS: ATORVASTATIN 40 MG TAB NGT SCH (21:30)
[2017-04-03] MEDS: ZOLPIDEM 5 MG TAB PO PRN (22:24)
[2017-04-04] VITALS (11 sets, daily range): BP systolic 128–140; BP diastolic 66–81; PULSE 89–95; RESP 18–20
[2017-04-04] MEDS: ACCU-CHEK XX SCH (02:00)
--- NOTE | 2017-04-04 02:23 | RADRPT ---
PROCEDURE: XR Chest. CLINICAL INDICATION: Removal of left chest tubes. TECHNIQUE: Single frontal view of the chest. COMPARISON: 03/29/2017. FINDINGS: Right central venous introducer is again seen. Previously seen 20 ounces catheters removed. Previo usly seen left chest tubes are removed. There are new bilateral moderate pleural effusions with pul monary congestion and bilateral patchy air space disease. There is cardiomegaly again seen. No femi dent pneumothorax. The osseous structures and soft tissues are unremarkable. IMPRESSION: 1. New bilateral moderate pleural effusions with atelectasis versus airspace disease in the lung ba ses. 2. Left chest tubes are removed, without evident pneumothorax. RPTAT: [facility] Physician Yossi Date Time Electronically viewed and signed by Physician Yossi on 04/04/2017 02:22 RS/
[2017-04-04] MEDS: FUROSEMIDE 40 MG INJ IV SCH ×2 (05:30→17:27)
[2017-04-04] MEDS: MEROPENEM 1 GM/100 ML (PMX) 100 ML IVPB SCH ×3 (05:30→21:43)
[2017-04-04] MEDS: PANTOPRAZOLE 40 MG INJ IV SCH (05:30)
[2017-04-04 06:42] LABS: HAAIG REFLEX REFLEX FILED
[2017-04-04] MEDS: INSULIN ASPART [NOVOLOG] 3 ML PEN SC SCH ×4 (07:46→21:00)
--- NOTE | 2017-04-04 08:16 | RADRPT ---
PROCEDURE: XR Chest. CLINICAL INDICATION: Shortness of breath. TECHNIQUE: Single frontal view. COMPARISON: 04/03/2017. FINDINGS: The right internal jugular vein sheath catheter has been removed. There is bilateral air space dise ase in the mid and lower lung zones consistent with atelectasis. The heart size is normal. There are sternal wires and mediastinal clips. There are moderate bilateral pleural effusions, larger than seen previously. There is no pneumothorax. IMPRESSION: 1. Slightly larger bilateral pleural effusions and worse atelectasis. 2. No other change from 04/03/2017. RPTAT: QQ .Ronald Jarrett MD, MD Date Time Electronically viewed and signed by .Ronald Jarrett MD, MD on 04/04/2017 08:16 .R/
[2017-04-04] MEDS: METOPROLOL 25 MG TAB PO SCH ×2 (08:31→21:43)
[2017-04-04 10:34] LABS: HEPATITIS B CORE ANTIBODY NEGATIVE (NEGATIVE)
--- NOTE | 2017-04-04 11:39 | CONS ---
Date/Time of Note Date/Time of Note DATE: 04/04/17 TIME: 11:36 Assessment/Plan Assessment/Plan Additional Assessment/Plan Assessment recommendations; 1. Patient admitted for elective CABG surgery 5 vessel with excellent overall clinical status now. 2. Chest x-ray from today showing mild pulmonary edema. Continue current treatment. Continue diuretics as well as current medications. Obtain follow-up chest x-ray tomorrow. Consultation Date/Type/Reason Admit Date/Time March 29, 2017 at 09:30 Initial Consult Date 04/01/17 Type of Consultation: Pulm Referring Provider: RUBI BROCK MD 24 HR Interval Summary Free Text/Dictation Patient condition is stable. Has been ambulating well. Denies any chest pain, complains of minimal shortness of breath upon exertion. Denies any cough, fever , chest pain. General exam; elderly male, awake alert currently in no distress. Exam/Review of Systems Vital Signs Vitals Vital Signs Date Time Temp Pulse Resp B/P Pulse Ox O2 Delivery O2 Flow Rate FiO2 04/04/17 08:47 94 04/04/17 07:31 98.0 18 132/74 98 04/03/17 21:57 3.0 04/03/17 20:06 Nasal Cannula 04/01/17 17:10 40 Intake and Output 04/03/17 04/03/17 04/04/17 15:00 23:00 07:00 Intake Total 790 ml 100 ml 300 ml Output Total 587 ml 154 ml 300 ml Balance 203 ml -54 ml 0 ml Exam HEENT examination; supple neck, no JVD. No lymphadenopathy. Midline trachea. No thyromegaly. Pharynx is clear. Pupils are small bilaterally. Next Chest examination; clear to auscultation. There is a well-healed sternal scar. S1-S2 audible, no murmurs. Regular rhythm. Abdomen examination; soft, no organomegaly. Bowel sounds audible. Nontender. Next Extremity examination; no peripheral edema. Pulses 1+ bilaterally. CINDER PITMAN examination; no focal deficit. Results Result Diagram: 04/03/17 0844 04/03/17 0844 Results 24 hrs Laboratory Tests Test 04/03/17 12:12 04/03/17 17:33 04/03/17 21:24 04/04/17 02:00 Bedside Glucose 113 115 95 104 Test 04/04/17 06:20 04/04/17 07:44 Hepatitis B Surface Antigen NEGATIVE Hepatitis B Core Total Antibody NEGATIVE Hepatitis C Antibody NEGATIVE Bedside Glucose 100 Medications Medications Current Medications Acetaminophen (Tylenol Supp) 650 mg Q3H PRN [place] ELEVATED TEMPERATURE Last administered on 04/01/17 18:32; Admin Dose 650 MG; Start 03/29/17 at 23:30 Hydromorphone HCl (Dilaudid) 0.2 mg Q2H PRN IV PAIN Last administered on 01:39; Admin Dose 0.2 MG; Start 03/30/17 at 00:30 Hydromorphone HCl (Dilaudid) 0.4 mg Q2H PRN IV PAIN Last administered on 17:32; Admin Dose 0.4 MG; Start 03/30/17 at 00:30 Pantoprazole (Protonix Iv) 40 mg DAILY@06 IV Last administered on 04/04/17 05: 30; Admin Dose 40 MG; Start 03/31/17 at 06:00 Atorvastatin Calcium 40 mg 40 mg HS NGT Last administered on 04/03/17 21:30; Admin Dose 40 MG; Start 03/31/17 at 21:00 Meropenem (Merrem 1 Gm/100 ml (Pmx)) 100 ml @ 200 mls/hr Q8 IVPB Last administered on 04/04/17 05:30; Admin Dose 200 MLS/HR; Start 04/01/17 at 10:00 Hydralazine HCl (Apresoline) 10 mg Q4H PRN IV ELEVATED BLOOD PRESSURE; Start at 20:00 Metoprolol Tartrate (Lopressor) 25 mg BID PO Last administered on 04/04/17 08: 31; Admin Dose 25 MG; Start 04/02/17 at 12:00 Diagnostic Test (Pha) (Accu-Chek) 1 ea 02 XX ; Start 04/03/17 at 02:00 Miscellaneous Information 1 ea NOTE XX ; Start 04/02/17 at 12:00 Glucose (Glutose) 15 gm Q15M PRN PO DECREASED GLUCOSE; Start 04/02/17 at 12:00 Glucose (Glutose) 22.5 gm Q15M PRN PO DECREASED GLUCOSE; Start 04/02/17 at 12: 00 Dextrose (D50w Syringe) 25 ml Q15M PRN IV DECREASED GLUCOSE; Start 04/02/17 at 12:00 Dextrose (D50w Syringe) 50 ml Q15M PRN IV DECREASED GLUCOSE; Start 04/02/17 at 12:00 Glucagon (Glucagen) 1 mg Q15M PRN IM DECREASED GLUCOSE; Start 04/02/17 at 12:00 Glucose (Glutose) 15 gm Q15M PRN BUCCAL DECREASED GLUCOSE; Start 04/02/17 at 12 :00 Zolpidem Tartrate (Ambien) 5 mg HS PRN PO INSOMNIA Last administered on t 22:24; Admin Dose 5 MG; Start 04/03/17 at 11:00 TAHIRA TERAN April 04, 2017 11:39
--- NOTE | 2017-04-04 13:31 | CONS ---
Date/Time of Note Date/Time of Note DATE: 04/04/17 TIME: 13:29 Assessment/Plan Assessment/Plan Additional Assessment/Plan Coronary artery disease status post CABG 5 Status post mitral valve replacement ITP Acute decompensated systolic congestive heart failure -Patient with pleural effusion seen on chest x-ray. Continue IV diuretics as renal function and blood pressure permits. Supplement potassium to maintain above 4.0 and magnesium above 2.0. Continue beta-tyrone, statin therapy. Start aspirin therapy when okay by our surgery colleagues. Will start low-dose ROGER inhibitor as blood pressure and renal function permits. Consultation Date/Type/Reason Admit Date/Time March 29, 2017 at 09:30 Initial Consult Date 04/01/17 Type of Consultation: cv Referring Provider: RUBI BROCK MD 24 HR Interval Summary Free Text/Dictation Denies chest pain, shortness of breath. Ambulating without difficulty Exam/Review of Systems Vital Signs Vitals Vital Signs Date Time Temp Pulse Resp B/P Pulse Ox O2 Delivery O2 Flow Rate FiO2 04/04/17 13:02 90 04/04/17 11:56 98.0 18 140/69 98 04/03/17 21:57 3.0 04/03/17 20:06 Nasal Cannula 04/01/17 17:10 40 Intake and Output 04/03/17 04/03/17 04/04/17 15:00 23:00 07:00 Intake Total 790 ml 100 ml 300 ml Output Total 587 ml 154 ml 300 ml Balance 203 ml -54 ml 0 ml Exam No apparent distress, family at bedside Constitutional: alert, oriented Head: normocephalic Neck: supple Respiratory: other (Coarse breath sounds bilaterally, decreased at the bases) Cardiovascular: other (S1-S2 heard), regular rate and rhythm Gastrointestinal: bowel sounds, non-tender, soft Extremities: edema (Trace) Results Result Diagram: 04/03/17 0844 04/03/17 0844 Results 24 hrs Laboratory Tests Test 04/03/17 17:33 04/03/17 21:24 04/04/17 02:00 04/04/17 06:20 Bedside Glucose 115 95 104 Hepatitis B Surface Antigen NEGATIVE Hepatitis B Core Total Antibody NEGATIVE Hepatitis C Antibody NEGATIVE Test 04/04/17 07:44 04/04/17 11:35 Bedside Glucose 100 103 Medications Medications Current Medications Acetaminophen (Tylenol Supp) 650 mg Q3H PRN [place] ELEVATED TEMPERATURE Last administered on 04/01/17 18:32; Admin Dose 650 MG; Start 03/29/17 at 23:30 Hydromorphone HCl (Dilaudid) 0.2 mg Q2H PRN IV PAIN Last administered on 01:39; Admin Dose 0.2 MG; Start 03/30/17 at 00:30 Hydromorphone HCl (Dilaudid) 0.4 mg Q2H PRN IV PAIN Last administered on 17:32; Admin Dose 0.4 MG; Start 03/30/17 at 00:30 Pantoprazole (Protonix Iv) 40 mg DAILY@06 IV Last administered on 04/04/17 05: 30; Admin Dose 40 MG; Start 03/31/17 at 06:00 Atorvastatin Calcium 40 mg 40 mg HS NGT Last administered on 04/03/17 21:30; Admin Dose 40 MG; Start 03/31/17 at 21:00 Meropenem (Merrem 1 Gm/100 ml (Pmx)) 100 ml @ 200 mls/hr Q8 IVPB Last administered on 04/04/17 05:30; Admin Dose 200 MLS/HR; Start 04/01/17 at 10:00 Hydralazine HCl (Apresoline) 10 mg Q4H PRN IV ELEVATED BLOOD PRESSURE; Start at 20:00 Metoprolol Tartrate (Lopressor) 25 mg BID PO Last administered on 04/04/17 08: 31; Admin Dose 25 MG; Start 04/02/17 at 12:00 Diagnostic Test (Pha) (Accu-Chek) 1 ea 02 XX ; Start 04/03/17 at 02:00 Miscellaneous Information 1 ea NOTE XX ; Start 04/02/17 at 12:00 Glucose (Glutose) 15 gm Q15M PRN PO DECREASED GLUCOSE; Start 04/02/17 at 12:00 Glucose (Glutose) 22.5 gm Q15M PRN PO DECREASED GLUCOSE; Start 04/02/17 at 12: 00 Dextrose (D50w Syringe) 25 ml Q15M PRN IV DECREASED GLUCOSE; Start 04/02/17 at 12:00 Dextrose (D50w Syringe) 50 ml Q15M PRN IV DECREASED GLUCOSE; Start 04/02/17 at 12:00 Glucagon (Glucagen) 1 mg Q15M PRN IM DECREASED GLUCOSE; Start 04/02/17 at 12:00 Glucose (Glutose) 15 gm Q15M PRN BUCCAL DECREASED GLUCOSE; Start 04/02/17 at 12 :00 Zolpidem Tartrate (Ambien) 5 mg HS PRN PO INSOMNIA Last administered on t 22:24; Admin Dose 5 MG; Start 04/03/17 at 11:00 Ranulfo Avlarado DO April 04, 2017 13:31
--- NOTE | 2017-04-04 16:26 | PN ---
Date/Time of Note Date/Time of Note DATE: 04/04/17 TIME: 16:20 Assessment/Plan VTE Prophylaxis VTE Prophylaxis Intervention: SCD's Lines/Catheters IV C[facility]ter Type (from [facility]): [facility] Urinary Cath still in place: No Assessment/Plan Chief Complaint/Hosp Course Assessment/Plan - Coronary artery disease status post CABG [address] Littlejohn - Status post mitral valve replacement - Status post right coronary endarterectomy - Respiratory failure, resolving Dr. Zafar is following in pulmonology consultation. - Acute decompensated systolic congestive heart failure, Dr. Chilel is following in cardiology consultation. Continue Lasix monitor electrolytes. - Postop sepsis of unknown etiology. Dr. Gaines is following an infection disease consultation. Continue antibiotics per ID. Further recommendations based on clinical course. Plan of care discussed with Dr. Kay. Problems: Subjective 24 Hr Interval Summary Free Text/Dictation Patient is awake alert, denies any chest pain, patient is saturated off oxygen per nursing staff, continue to monitor on telemetry continue oxygen supplementation. Exam/Review of Systems Vital Signs Vitals Vital Signs Date Time Temp Pulse Resp B/P Pulse Ox O2 Delivery O2 Flow Rate FiO2 04/04/17 15:52 98.0 89 18 135/81 98 04/03/17 21:57 3.0 04/03/17 20:06 Nasal Cannula 04/01/17 17:10 40 Intake and Output 04/03/17 04/03/17 04/04/17 14:59 22:59 06:59 Intake Total 690 ml 200 ml 300 ml Output Total 1304 ml 206 ml 300 ml Balance -614 ml -6 ml 0 ml Exam Constitutional: alert, oriented Psych: no complaints Head: atraumatic, normocephalic Eyes: nl conjunctiva ENMT: nl external ears & nose Neck: non-tender, supple Respiratory: clear to auscultation Cardiovascular: nl pulses, other (Surgical incision intact), regular rate and rhythm Gastrointestinal: non-tender, soft Musculoskeletal: nl extremities to inspection Extremities: normal pulses Neurological: CANDY CUTTER MACHINE II-XII intact Results Result Diagram: 04/03/17 0844 04/03/17 0844 Results 24 hrs Laboratory Tests Test 04/03/17 17:33 04/03/17 21:24 04/04/17 02:00 04/04/17 06:20 Bedside Glucose 115 95 104 Hepatitis B Surface Antigen NEGATIVE Hepatitis B Core Total Antibody NEGATIVE Hepatitis C Antibody NEGATIVE Test 04/04/17 07:44 04/04/17 11:35 Bedside Glucose 100 103 Medications Medications Current Medications Acetaminophen (Tylenol Supp) 650 mg Q3H PRN [place] ELEVATED TEMPERATURE Last administered on 04/01/17 18:32; Admin Dose 650 MG; Start 03/29/17 at 23:30 Hydromorphone HCl (Dilaudid) 0.2 mg Q2H PRN IV PAIN Last administered on 01:39; Admin Dose 0.2 MG; Start 03/30/17 at 00:30 Hydromorphone HCl (Dilaudid) 0.4 mg Q2H PRN IV PAIN Last administered on 17:32; Admin Dose 0.4 MG; Start 03/30/17 at 00:30 Pantoprazole 40 mg 40 mg DAILY@06 IV Last administered on 04/04/17 05:30; Admin Dose 40 MG; Start 03/31/17 at 06:00 Meropenem (Merrem 1 Gm/100 ml (Pmx)) 100 ml @ 200 mls/hr Q8 IVPB Last administered on 04/04/17 14:39; Admin Dose 200 MLS/HR; Start 04/01/17 at 10:00 Hydralazine HCl (Apresoline) 10 mg Q4H PRN IV ELEVATED BLOOD PRESSURE; Start at 20:00 Metoprolol Tartrate (Lopressor) 25 mg BID PO Last administered on 04/04/17 08: 31; Admin Dose 25 MG; Start 04/02/17 at 12:00 Diagnostic Test (Pha) (Accu-Chek) 1 ea 02 XX ; Start 04/03/17 at 02:00 Miscellaneous Information 1 ea NOTE XX ; Start 04/02/17 at 12:00 Glucose (Glutose) 15 gm Q15M PRN PO DECREASED GLUCOSE; Start 04/02/17 at 12:00 Glucose (Glutose) 22.5 gm Q15M PRN PO DECREASED GLUCOSE; Start 04/02/17 at 12: 00 Dextrose (D50w Syringe) 25 ml Q15M PRN IV DECREASED GLUCOSE; Start 04/02/17 at 12:00 Dextrose (D50w Syringe) 50 ml Q15M PRN IV DECREASED GLUCOSE; Start 04/02/17 at 12:00 Glucagon (Glucagen) 1 mg Q15M PRN IM DECREASED GLUCOSE; Start 04/02/17 at 12:00 Glucose (Glutose) 15 gm Q15M PRN BUCCAL DECREASED GLUCOSE; Start 04/02/17 at 12 :00 Zolpidem Tartrate (Ambien) 5 mg HS PRN PO INSOMNIA Last administered on t 22:24; Admin Dose 5 MG; Start 04/03/17 at 11:00 Atorvastatin Calcium (Lipitor) 40 mg HS PO ; Start 04/04/17 at 21:00 Lisinopril (Zestril) 5 mg DAILY PO ; Start 04/05/17 at 09:00 EDI MENDOZA April 04, 2017 16:26
--- NOTE | 2017-04-04 19:04 | CONS ---
Date/Time of Note Date/Time of Note DATE: 04/04/17 TIME: 19:02 Assessment/Plan Assessment/Plan Chief Complaint/Hosp Course - Postop sepsis of unknown etiology vs SIRS - fever and leukocytosis are improving - CAD s/p CABG x5 on 03/29/2017 - S/p MV replacement 03/29/2017 - S/p R coronary endarterectomy. - S/p Hypoxemic respiratory failure, extubated 04/01/2017 - Acute decompensated systolic CHF - on IV lasix - Thrombocytopenia recommendations: - repeat pancultures if temp >100.4F - complete empiric course of Meropenem Problems: Consultation Date/Type/Reason Admit Date/Time March 29, 2017 at 09:30 Initial Consult Date 03/30/17 Type of Consultation: id Referring Provider: RUBI BROCK MD Exam/Review of Systems Vital Signs Vitals Vital Signs Date Time Temp Pulse Resp B/P Pulse Ox O2 Delivery O2 Flow Rate FiO2 04/04/17 16:47 89 04/04/17 15:52 98.0 18 135/81 98 04/03/17 21:57 3.0 04/03/17 20:06 Nasal Cannula 04/01/17 17:10 40 Intake and Output 04/03/17 04/03/17 04/04/17 15:00 23:00 07:00 Intake Total 790 ml 100 ml 300 ml Output Total 587 ml 154 ml 300 ml Balance 203 ml -54 ml 0 ml Exam Constitutional: alert, oriented, well developed Psych: nl mood/affect, no complaints Head: atraumatic, normocephalic ENMT: nl external ears & nose, nl lips & teeth, nl nasal mucosa & septum Neck: non-tender, supple Respiratory: clear to auscultation, normal air movement Cardiovascular: nl pulses, regular rate and rhythm Gastrointestinal: nl liver, spleen, non-tender, soft Results Result Diagram: 04/03/17 0844 04/03/17 0844 Results 24 hrs Laboratory Tests Test 04/03/17 21:24 04/04/17 02:00 04/04/17 06:20 04/04/17 07:44 Bedside Glucose 95 104 100 Hepatitis B Surface Antigen NEGATIVE Hepatitis B Core Total Antibody NEGATIVE Hepatitis C Antibody NEGATIVE Test 04/04/17 11:35 04/04/17 17:09 Bedside Glucose 103 107 Medications Medications Current Medications Acetaminophen (Tylenol Supp) 650 mg Q3H PRN [place] ELEVATED TEMPERATURE Last administered on 04/01/17 18:32; Admin Dose 650 MG; Start 03/29/17 at 23:30 Hydromorphone HCl (Dilaudid) 0.2 mg Q2H PRN IV PAIN Last administered on 01:39; Admin Dose 0.2 MG; Start 03/30/17 at 00:30 Hydromorphone HCl (Dilaudid) 0.4 mg Q2H PRN IV PAIN Last administered on 17:32; Admin Dose 0.4 MG; Start 03/30/17 at 00:30 Pantoprazole 40 mg 40 mg DAILY@06 IV Last administered on 04/04/17 05:30; Admin Dose 40 MG; Start 03/31/17 at 06:00 Meropenem (Merrem 1 Gm/100 ml (Pmx)) 100 ml @ 200 mls/hr Q8 IVPB Last administered on 04/04/17 14:39; Admin Dose 200 MLS/HR; Start 04/01/17 at 10:00 Hydralazine HCl (Apresoline) 10 mg Q4H PRN IV ELEVATED BLOOD PRESSURE; Start at 20:00 Metoprolol Tartrate (Lopressor) 25 mg BID PO Last administered on 04/04/17 08: 31; Admin Dose 25 MG; Start 04/02/17 at 12:00 Diagnostic Test (Pha) (Accu-Chek) 1 ea 02 XX ; Start 04/03/17 at 02:00 Miscellaneous Information 1 ea NOTE XX ; Start 04/02/17 at 12:00 Glucose (Glutose) 15 gm Q15M PRN PO DECREASED GLUCOSE; Start 04/02/17 at 12:00 Glucose (Glutose) 22.5 gm Q15M PRN PO DECREASED GLUCOSE; Start 04/02/17 at 12: 00 Dextrose (D50w Syringe) 25 ml Q15M PRN IV DECREASED GLUCOSE; Start 04/02/17 at 12:00 Dextrose (D50w Syringe) 50 ml Q15M PRN IV DECREASED GLUCOSE; Start 04/02/17 at 12:00 Glucagon (Glucagen) 1 mg Q15M PRN IM DECREASED GLUCOSE; Start 5/13/17 at 12:00 Glucose (Glutose) 15 gm Q15M PRN BUCCAL DECREASED GLUCOSE; Start 04/02/17 at 12 :00 Zolpidem Tartrate (Ambien) 5 mg HS PRN PO INSOMNIA Last administered on t 22:24; Admin Dose 5 MG; Start 04/03/17 at 11:00 Atorvastatin Calcium (Lipitor) 40 mg HS PO ; Start 04/04/17 at 21:00 Lisinopril (Zestril) 5 mg DAILY PO ; Start 04/05/17 at 09:00 ROSIO LAWRENCE MD April 04, 2017 19:04
--- NOTE | 2017-04-04 20:41 | PN ---
Date/Time of Note Date/Time of Note DATE: 04/04/17 TIME: 20:41 Assessment/Plan Lines/Catheters IV Catheter Type (from Nrsg): Saline Lock Helm in Place (from Nrsg): No Assessment/Plan Chief Complaint/Hosp Course SP CABG, MVR hemodynamically stable continue IABP Extubated CT DCed ABX per ID monitor WBC Problems: Subjective 24 Hr Interval Summary Constitutional: improved Pain Control: mild Exam/Review of Systems Vital Signs Vitals Vital Signs Date Time Temp Pulse Resp B/P Pulse Ox O2 Delivery O2 Flow Rate FiO2 04/04/17 16:47 89 04/04/17 15:52 98.0 18 135/81 98 04/03/17 21:57 3.0 04/03/17 20:06 Nasal Cannula 04/01/17 17:10 40 Intake and Output 04/03/17 04/03/17 04/04/17 15:00 23:00 07:00 Intake Total 790 ml 100 ml 300 ml Output Total 587 ml 154 ml 300 ml Balance 203 ml -54 ml 0 ml Exam Neck: non-tender, supple Respiratory: clear to auscultation, normal air movement Cardiovascular: nl pulses, regular rate and rhythm Results Result Diagram: 04/03/17 0844 04/03/17 0844 TOMEKA DELEON MD April 04, 2017 20:41
[2017-04-04] MEDS: ATORVASTATIN 40 MG TAB PO SCH (21:42)
[2017-04-05] VITALS (13 sets, daily range): BP systolic 108–127; BP diastolic 59–86; PULSE 86–95; RESP 17–18
[2017-04-05] MEDS: ACCU-CHEK XX SCH (02:00)
[2017-04-05] MEDS: FUROSEMIDE 40 MG INJ IV SCH ×2 (06:17→18:00)
[2017-04-05] MEDS: PANTOPRAZOLE 40 MG INJ IV SCH (06:17)
[2017-04-05] MEDS: MEROPENEM 1 GM/100 ML (PMX) 100 ML IVPB SCH ×3 (06:19→21:08)
[2017-04-05 06:52] LABS: ADD SCAN DIFF NO
[2017-04-05 06:54] LABS: BASOPHILS % 0.3 % (0.0-2.0); EOSINOPHILS # 0.4 10^3/ul (0.0-0.5); EOSINOPHILS % 3.2 % (0.0-7.0); HEMATOCRIT 29.2 % (42.0-52.0); HEMOGLOBIN 9.6 g/dl (14.0-18.0); LYMPHOCYTES # 1.5 10^3/ul (0.8-2.9); LYMPHOCYTES % 12.2 % (15.0-51.0); MEAN CORPUSCULAR HEMOGLOBIN 30.8 pg (29.0-33.0); MEAN CORPUSCULAR HGB CONC 32.9 g/dl (32.0-37.0); MEAN CORPUSCULAR VOLUME 93.6 fl (82.0-101.0); MEAN PLATELET VOLUME 12.8 fl (7.4-10.4); MONOCYTE # 1.3 10^3/ul (0.3-0.9); MONOCYTES % 10.4 % (0.0-11.0); NEUTROPHILS % 72.8 % (39.0-77.0); PLATELET COUNT 124 10^3/UL (140-415); RED BLOOD COUNT 3.12 10^6/ul (4.70-6.10); RED CELL DISTRIBUTION WIDTH 14.9 % (11.5-14.5); WHITE BLOOD COUNT 12.4 10^3/ul (4.8-10.8)
[2017-04-05 07:20] LABS: CALCIUM 8.4 mg/dl (8.4-10.2); CREATININE 0.58 mg/dl (0.61-1.24); POTASSIUM 3.5 mmol/L (3.5-5.1)
[2017-04-05] MEDS: INSULIN ASPART [NOVOLOG] 3 ML PEN SC SCH ×4 (07:55→20:58)
[2017-04-05] MEDS: METOPROLOL 25 MG TAB PO SCH ×2 (08:35→21:08)
[2017-04-05] MEDS: LISINOPRIL 5 MG TAB PO SCH (08:35)
--- NOTE | 2017-04-05 10:05 | RADRPT ---
PROCEDURE: XR Chest. CLINICAL INDICATION: pain TECHNIQUE: Single portable view of the chest was obtained COMPARISON: Yesterday FINDINGS: The heart, lungs and mediastinum are unchanged. There is mild cardiomegaly is status post sternotomy . There is pulmonary vascular congestion. There are bilateral perihilar and lower lobe infiltrates . There are moderate bilateral pleural effusions.. RPTAT: AA IMPRESSION: No significant change. Mild cardiomegaly with pulmonary vascular congestion. Moderate bilateral pleural effusions. .Shaw Davis MD, MD Date Time Electronically viewed and signed by .Shaw Davis MD, MD on 04/05/2017 10:05 .S/
--- NOTE | 2017-04-05 12:22 | CONS ---
Date/Time of Note Date/Time of Note DATE: 04/05/17 TIME: 12:20 Assessment/Plan Assessment/Plan Additional Assessment/Plan Assessment recommendations; 1. Patient admitted for elective coronary artery bypass surgery with excellent overall clinical status. 2. Chest x-ray from today showing persistent moderate bilateral pleural effusions. Patient currently on high-dose Lasix. 3. Likely underlying congestive heart failure. Next Continue current treatment. Schedule ultrasound-guided right sided thoracentesis. Consider stopping antibiotics. Consultation Date/Type/Reason Admit Date/Time March 29, 2017 at 09:30 Initial Consult Date 04/01/17 Type of Consultation: Pulmonary Referring Provider: RUBI BROCK MD 24 HR Interval Summary Free Text/Dictation Patient condition stable. Remains awake alert. Denies any shortness of breath , chest pain. General exam; elderly male, awake alert currently in no distress. Exam/Review of Systems Vital Signs Vitals Vital Signs Date Time Temp Pulse Resp B/P Pulse Ox O2 Delivery O2 Flow Rate FiO2 04/05/17 11:23 98.3 92 18 116/86 94 04/05/17 08:39 Nasal Cannula 3.0 04/01/17 17:10 40 Intake and Output 04/04/17 04/04/17 04/05/17 15:00 23:00 07:00 Intake Total 850 ml 500 ml Output Total 1200 ml Balance -350 ml 500 ml Exam HEENT exam is; supple neck, no lymphadenopathy. No JVD. No thyromegaly. Pharynx is clear. Patient has fair dentition. Pupils are small bilaterally. Chest examination; diminished breath on lung bases bilaterally. S1-S2 audible, no murmurs. Regular rhythm. There is a well-healed sternal scar. Abdomen examination; soft, nondistended. No organomegaly. Bowel sounds audible. Extremity examination; no peripheral edema. Pulses 1+ bilaterally. 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 Results Result Diagram: 04/05/17 0630 04/05/17 0630 Results 24 hrs Laboratory Tests Test 04/04/17 17:09 04/04/17 21:37 04/05/17 06:30 04/05/17 07:52 Bedside Glucose 107 110 101 White Blood Count 12.4 #H Red Blood Count 3.12 L Hemoglobin 9.6 L Hematocrit 29.2 L Mean Corpuscular Volume 93.6 Mean Corpuscular Hemoglobin 30.8 Mean Corpuscular Hemoglobin Concent 32.9 Red Cell Distribution Width 14.9 H Platelet Count 124 #L Mean Platelet Volume 12.8 H Neutrophils % 72.8 Lymphocytes % 12.2 L Monocytes % 10.4 Eosinophils % 3.2 Basophils % 0.3 Nucleated Red Blood Cells % 0.0 Neutrophils # 9.0 H Lymphocytes # 1.5 Monocytes # 1.3 H Eosinophils # 0.4 Basophils # 0.0 Nucleated Red Blood Cells # 0.0 Sodium Level 136 Potassium Level 3.5 Chloride Level 100 Carbon Dioxide Level 32 H Anion Gap 8 Blood Urea Nitrogen 28 #H Creatinine 0.58 L Glucose Level 107 Calcium Level 8.4 Magnesium Level 1.9 Test 04/05/17 11:58 Bedside Glucose 102 Medications Medications Current Medications Acetaminophen (Tylenol Supp) 650 mg Q3H PRN [place] ELEVATED TEMPERATURE Last administered on 04/01/17 18:32; Admin Dose 650 MG; Start 03/29/17 at 23:30 Hydromorphone HCl (Dilaudid) 0.2 mg Q2H PRN IV PAIN Last administered on 01:39; Admin Dose 0.2 MG; Start 03/30/17 at 00:30 Hydromorphone HCl (Dilaudid) 0.4 mg Q2H PRN IV PAIN Last administered on 17:32; Admin Dose 0.4 MG; Start 03/30/17 at 00:30 Pantoprazole 40 mg 40 mg DAILY@06 IV Last administered on 04/05/17 06:17; Admin Dose 40 MG; Start 03/31/17 at 06:00 Meropenem (Merrem 1 Gm/100 ml (Pmx)) 100 ml @ 200 mls/hr Q8 IVPB Last administered on 04/05/17 06:19; Admin Dose 200 MLS/HR; Start 04/01/17 at 10:00 Hydralazine HCl (Apresoline) 10 mg Q4H PRN IV ELEVATED BLOOD PRESSURE; Start at 20:00 Metoprolol Tartrate (Lopressor) 25 mg BID PO Last administered on 04/05/17 08: 35; Admin Dose 25 MG; Start 04/02/17 at 12:00 Diagnostic Test (Pha) (Accu-Chek) 1 ea 02 XX ; Start 04/03/17 at 02:00 Miscellaneous Information 1 ea NOTE XX ; Start 04/02/17 at 12:00 Glucose (Glutose) 15 gm Q15M PRN PO DECREASED GLUCOSE; Start 04/02/17 at 12:00 Glucose (Glutose) 22.5 gm Q15M PRN PO DECREASED GLUCOSE; Start 04/02/17 at 12: 00 Dextrose (D50w Syringe) 25 ml Q15M PRN IV DECREASED GLUCOSE; Start 04/02/17 at 12:00 Dextrose (D50w Syringe) 50 ml Q15M PRN IV DECREASED GLUCOSE; Start 04/02/17 at 12:00 Glucagon (Glucagen) 1 mg Q15M PRN IM DECREASED GLUCOSE; Start 04/02/17 at 12:00 Glucose (Glutose) 15 gm Q15M PRN BUCCAL DECREASED GLUCOSE; Start 04/02/17 at 12 :00 Zolpidem Tartrate (Ambien) 5 mg HS PRN PO INSOMNIA Last administered on 22:24; Admin Dose 5 MG; Start 04/03/17 at 11:00 Atorvastatin Calcium (Lipitor) 40 mg HS PO Last administered on 04/04/17 21:42 ; Admin Dose 40 MG; Start 04/04/17 at 21:00 Lisinopril (Zestril) 5 mg DAILY PO Last administered on 04/05/17 08:35; Admin Dose 5 MG; Start 04/05/17 at 09:00 TAHIRA TERAN April 05, 2017 12:21
--- NOTE | 2017-04-05 13:01 | CONS ---
Date/Time of Note Date/Time of Note DATE: 04/05/17 TIME: 12:52 Assessment/Plan Assessment/Plan Additional Assessment/Plan Coronary artery disease status post CABG 5 Status post mitral valve replacement ITP Acute decompensated systolic congestive heart failure -Patient with pleural effusion seen on chest x-ray. Continue IV diuretics as renal function and blood pressure permits. Thoracentesis ordered by our pulmonary colleagues. Supplement potassium to maintain above 4.0 and magnesium above 2.0. Continue beta-tyrone, statin therapy and ROGER inhibitor as blood pressure and renal function permits. Will check echocardiogram to evaluate LV function post surgery and help with guidance of heart failure medications. Consultation Date/Type/Reason Admit Date/Time March 29, 2017 at 09:30 Initial Consult Date 04/01/17 Type of Consultation: cv Referring Provider: RUBI BROCK MD 24 HR Interval Summary Free Text/Dictation Shortness of breath continues to improve. Denies chest pain, dizziness Exam/Review of Systems Vital Signs Vitals Vital Signs Date Time Temp Pulse Resp B/P Pulse Ox O2 Delivery O2 Flow Rate FiO2 04/05/17 12:40 86 04/05/17 11:23 98.3 18 116/86 94 04/05/17 08:39 Nasal Cannula 3.0 04/01/17 17:10 40 Intake and Output 04/04/17 04/04/17 04/05/17 15:00 23:00 07:00 Intake Total 850 ml 500 ml Output Total 1200 ml Balance -350 ml 500 ml Exam No apparent distress Constitutional: alert, oriented Neck: supple Respiratory: other (Decreased breath sounds at the bases, no wheezing) Cardiovascular: other (S1-S2 heard), regular rate and rhythm, systolic murmur Gastrointestinal: bowel sounds, non-tender, soft Extremities: edema (Trace) Results Result Diagram: 04/05/17 0630 04/05/17 0630 Results 24 hrs Laboratory Tests Test 04/04/17 17:09 04/04/17 21:37 04/05/17 06:30 04/05/17 07:52 Bedside Glucose 107 110 101 White Blood Count 12.4 #H Red Blood Count 3.12 L Hemoglobin 9.6 L Hematocrit 29.2 L Mean Corpuscular Volume 93.6 Mean Corpuscular Hemoglobin 30.8 Mean Corpuscular Hemoglobin Concent 32.9 Red Cell Distribution Width 14.9 H Platelet Count 124 #L Mean Platelet Volume 12.8 H Neutrophils % 72.8 Lymphocytes % 12.2 L Monocytes % 10.4 Eosinophils % 3.2 Basophils % 0.3 Nucleated Red Blood Cells % 0.0 Neutrophils # 9.0 H Lymphocytes # 1.5 Monocytes # 1.3 H Eosinophils # 0.4 Basophils # 0.0 Nucleated Red Blood Cells # 0.0 Sodium Level 136 Potassium Level 3.5 Chloride Level 100 Carbon Dioxide Level 32 H Anion Gap 8 Blood Urea Nitrogen 28 #H Creatinine 0.58 L Glucose Level 107 Calcium Level 8.4 Magnesium Level 1.9 Test 04/05/17 11:58 Bedside Glucose 102 Medications Medications Current Medications Acetaminophen (Tylenol Supp) 650 mg Q3H PRN [place] ELEVATED TEMPERATURE Last administered on 04/01/17 18:32; Admin Dose 650 MG; Start 03/29/17 at 23:30 Hydromorphone HCl (Dilaudid) 0.2 mg Q2H PRN IV PAIN Last administered on 01:39; Admin Dose 0.2 MG; Start 03/30/17 at 00:30 Hydromorphone HCl (Dilaudid) 0.4 mg Q2H PRN IV PAIN Last administered on 17:32; Admin Dose 0.4 MG; Start 03/30/17 at 00:30 Pantoprazole 40 mg 40 mg DAILY@06 IV Last administered on 04/05/17 06:17; Admin Dose 40 MG; Start 03/31/17 at 06:00 Meropenem (Merrem 1 Gm/100 ml (Pmx)) 100 ml @ 200 mls/hr Q8 IVPB Last administered on 04/05/17 06:19; Admin Dose 200 MLS/HR; Start 04/01/17 at 10:00 Hydralazine HCl (Apresoline) 10 mg Q4H PRN IV ELEVATED BLOOD PRESSURE; Start at 20:00 Metoprolol Tartrate (Lopressor) 25 mg BID PO Last administered on 04/05/17 08: 35; Admin Dose 25 MG; Start 04/02/17 at 12:00 Diagnostic Test (Pha) (Accu-Chek) 1 ea 02 XX ; Start 04/03/17 at 02:00 Miscellaneous Information 1 ea NOTE XX ; Start 04/02/17 at 12:00 Glucose (Glutose) 15 gm Q15M PRN PO DECREASED GLUCOSE; Start 04/02/17 at 12:00 Glucose (Glutose) 22.5 gm Q15M PRN PO DECREASED GLUCOSE; Start 04/02/17 at 12: 00 Dextrose (D50w Syringe) 25 ml Q15M PRN IV DECREASED GLUCOSE; Start 04/02/17 at 12:00 Dextrose (D50w Syringe) 50 ml Q15M PRN IV DECREASED GLUCOSE; Start 04/02/17 at 12:00 Glucagon (Glucagen) 1 mg Q15M PRN IM DECREASED GLUCOSE; Start 04/02/17 at 12:00 Glucose (Glutose) 15 gm Q15M PRN BUCCAL DECREASED GLUCOSE; Start 04/02/17 at 12 :00 Zolpidem Tartrate (Ambien) 5 mg HS PRN PO INSOMNIA Last administered on 22:24; Admin Dose 5 MG; Start 04/03/17 at 11:00 Atorvastatin Calcium (Lipitor) 40 mg HS PO Last administered on 04/04/17 21:42 ; Admin Dose 40 MG; Start 04/04/17 at 21:00 Lisinopril (Zestril) 5 mg DAILY PO Last administered on 04/05/17 08:35; Admin Dose 5 MG; Start 04/05/17 at 09:00 Ranulfo Alvarado DO April 05, 2017 13:01
--- NOTE | 2017-04-05 15:40 | RADRPT ---
Echocardiogram Report Patient Name: MAYO CARTER Gender: Male Date: 1955 Study Date: 05-Apr-2017 Deaf Teacher: Theo Arevalo RUST Location: [id number] Ref. Physician: RANULFO ALVARADO Quality: Good Procedures: Transthoracic echocardiogram with complete 2D, M-Mode, and doppler examination. Indications: s/p cabg and bio MV. Congestive Heart Failure. 2D/M Mode Doppler Measurement Value Normal Ranges Measurement Value Normal Ranges LVIDd 2D 5.3 3.5 - 5.6 cm AV Mean Geraldo 1.3 m/sec LVIDs 2D 3.7 2.1 - 4.1 cm AV Mean PG 8.0 mmHg FS 2D 30.7 % AV Peak Geraldo 2.0 m/sec LVPWd 2D 0.7 0.6 - 1.1 cm AV Peak PG 17.0 mmHg IVSd 2D 0.8 0.6 - 1.1 cm AV VTI 40.1 cm IVS/LVPW 2D 1.0 LVOT Peak Geraldo 1.3 m/sec AoR Diam 2D 3.1 2.0 - 3.7 cm LVOT Peak PG 6.0 mmHg LA/Ao 2D 1 0 - 1 MV E Peak Geraldo 1.5 m/sec EDV 2D 147.0 cm3 MV A Peak Geraldo 1.5 m/sec ESV 2D 49.0 cm3 MV E/A 1.0 LA Dimen 2D 3.7 2.3 - 4.0 cm MV PHT 84.0 msec MV Peak Geraldo 2.2 m/sec MV Peak PG 19.0 mmHg MV Mean Geraldo 1.3 m/sec MV Mean PG 7.0 mmHg MV Decel Time 173 msec MV Decel [place] 7 MV E/A 1.0 MV PHT Peak Geraldo 2.1 m/sec MV PHT 84.0 msec MV VTI 55.1 cm MVA PHT 2.6 cm2 TR Peak Geraldo 2.7 m/sec TR Peak PG 30.0 mmHg RVSP 38.0 mmHg Findings Left Ventricle: Normal left ventricular cavity size. Normal left ventricular wall thickness. Mild left ventricular systolic dysfunction. Ejection fraction is visually estimated at 4045 %. Abnormal Diastolic Function. Right Ventricle: Normal right ventricular size. Normal right ventricular systolic function. Left Atrium: The left atrium is normal in size. Right Atrium: The right atrium is normal in size. Mitral Valve: Mitral Valve Bio Prosthesis. Mitral valve Max Velocity 2.16 m/sec. MeanPG 7.00 mmHg. Aortic Valve: Aortic sclerosis without stenosis. No aortic regurgitation. Tricuspid Valve: Normal appearance of the tricuspid valve. Estimated peak PA systolic pressure 30 mmHg. There is mild tricuspid regurgitation. Pulmonic Valve: Normal pulmonic valve appearance. Pericardium: Normal pericardium with no significant pericardial effusion. Aorta: Normal aortic root. IVC: Dilated IVC with respiratory collapse consistent with elevated right atrial pressure. Conclusions 1.Normal left ventricular cavity size. Normal left ventricular wall thickness. Mild left ventricular systolic dysfunction. Ejection fraction is visually estimated at 40-45 %. Abnormal Diastolic Function. 2.Normal right ventricular size. Normal right ventricular systolic function. 3.The left atrium is normal in size. 4.The right atrium is normal in size. 5.Mitral Valve Bio Prosthesis-normal functioning. 6.Estimated peak PA systolic pressure 30 mmHg. There is mild tricuspid regurgitation. 7.Aortic sclerosis without stenosis. No aortic regurgitation. 8.Normal pericardium with no significant pericardial effusion. Electronically Signed By: Ranulfo Alvarado 05-Apr-2017 15:39:33 -0700 Patient Name: MAYO CARTER Study Date: 05-Apr-2017 [id number]
--- NOTE | 2017-04-05 16:41 | PN ---
Date/Time of Note Date/Time of Note DATE: 04/05/17 TIME: 16:35 Assessment/Plan VTE Prophylaxis VTE Prophylaxis Intervention: SCD's Lines/Catheters [facility] Saline Lock Urinary Cath still in place: No Assessment/Plan Chief Complaint/Hosp Course Assessment/Plan - Coronary artery disease status post CABG [address] Littlejohn - Status post mitral valve replacement - Status post right coronary endarterectomy - Respiratory failure, resolving Dr. Zafar is following in pulmonology consultation. - Acute decompensated systolic congestive heart failure, Dr. Chilel is following in cardiology consultation. Continue Lasix monitor electrolytes. - Bilateral pleural effusions, pending thoracentesis. - Postop sepsis of unknown etiology. Dr. Gaines is following an infection disease consultation. Continue antibiotics per ID. Further recommendations based on clinical course. Plan of care discussed with Dr. Kay. Problems: Subjective 24 Hr Interval Summary Free Text/Dictation Patient was able to walk with physical therapy using walker, currently tired, resting comfortable and supplemental oxygen, however gets short of breath on exertion. Exam/Review of Systems Vital Signs Vitals Vital Signs Date Time Temp Pulse Resp B/P Pulse Ox O2 Delivery O2 Flow Rate FiO2 04/05/17 16:14 89 04/05/17 15:31 97.7 18 108/59 95 04/05/17 08:39 Nasal Cannula 3.0 04/01/17 17:10 40 Intake and Output 04/04/17 04/04/17 04/05/17 15:00 23:00 07:00 Intake Total 850 ml 500 ml Output Total 1200 ml Balance -350 ml 500 ml Exam Constitutional: alert, oriented Psych: no complaints Head: atraumatic, normocephalic Eyes: nl conjunctiva ENMT: nl external ears & nose Neck: non-tender, supple Respiratory: clear to auscultation Cardiovascular: nl pulses, other (Surgical incision intact), regular rate and rhythm Gastrointestinal: non-tender, soft Musculoskeletal: nl extremities to inspection Extremities: normal pulses 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 Results Result Diagram: 04/05/17 0630 04/05/17 0630 Results 24 hrs Laboratory Tests Test 04/04/17 17:09 04/04/17 21:37 04/05/17 06:30 04/05/17 07:52 Bedside Glucose 107 110 101 White Blood Count 12.4 #H Red Blood Count 3.12 L Hemoglobin 9.6 L Hematocrit 29.2 L Mean Corpuscular Volume 93.6 Mean Corpuscular Hemoglobin 30.8 Mean Corpuscular Hemoglobin Concent 32.9 Red Cell Distribution Width 14.9 H Platelet Count 124 #L Mean Platelet Volume 12.8 H Neutrophils % 72.8 Lymphocytes % 12.2 L Monocytes % 10.4 Eosinophils % 3.2 Basophils % 0.3 Nucleated Red Blood Cells % 0.0 Neutrophils # 9.0 H Lymphocytes # 1.5 Monocytes # 1.3 H Eosinophils # 0.4 Basophils # 0.0 Nucleated Red Blood Cells # 0.0 Sodium Level 136 Potassium Level 3.5 Chloride Level 100 Carbon Dioxide Level 32 H Anion Gap 8 Blood Urea Nitrogen 28 #H Creatinine 0.58 L Glucose Level 107 Calcium Level 8.4 Magnesium Level 1.9 Test 04/05/17 11:58 Bedside Glucose 102 Medications Medications Current Medications Acetaminophen (Tylenol Supp) 650 mg Q3H PRN [place] ELEVATED TEMPERATURE Last administered on 04/01/17 18:32; Admin Dose 650 MG; Start 03/29/17 at 23:30 Hydromorphone HCl (Dilaudid) 0.2 mg Q2H PRN IV PAIN Last administered on 01:39; Admin Dose 0.2 MG; Start 03/30/17 at 00:30 Hydromorphone HCl (Dilaudid) 0.4 mg Q2H PRN IV PAIN Last administered on 17:32; Admin Dose 0.4 MG; Start 03/30/17 at 00:30 Pantoprazole 40 mg 40 mg DAILY@06 IV Last administered on 04/05/17 06:17; Admin Dose 40 MG; Start 03/31/17 at 06:00 Meropenem (Merrem 1 Gm/100 ml (Pmx)) 100 ml @ 200 mls/hr Q8 IVPB Last administered on 04/05/17 14:48; Admin Dose 200 MLS/HR; Start 04/01/17 at 10:00 Hydralazine HCl (Apresoline) 10 mg Q4H PRN IV ELEVATED BLOOD PRESSURE; Start at 20:00 Metoprolol Tartrate (Lopressor) 25 mg BID PO Last administered on 04/05/17 08: 35; Admin Dose 25 MG; Start 04/02/17 at 12:00 Diagnostic Test (Pha) (Accu-Chek) 1 ea 02 XX ; Start 04/03/17 at 02:00 Miscellaneous Information 1 ea NOTE XX ; Start 04/02/17 at 12:00 Glucose (Glutose) 15 gm Q15M PRN PO DECREASED GLUCOSE; Start 04/02/17 at 12:00 Glucose (Glutose) 22.5 gm Q15M PRN PO DECREASED GLUCOSE; Start 04/02/17 at 12: 00 Dextrose (D50w Syringe) 25 ml Q15M PRN IV DECREASED GLUCOSE; Start 04/02/17 at 12:00 Dextrose (D50w Syringe) 50 ml Q15M PRN IV DECREASED GLUCOSE; Start 04/02/17 at 12:00 Glucagon (Glucagen) 1 mg Q15M PRN IM DECREASED GLUCOSE; Start 04/02/17 at 12:00 Glucose (Glutose) 15 gm Q15M PRN BUCCAL DECREASED GLUCOSE; Start 04/02/17 at 12 :00 Zolpidem Tartrate (Ambien) 5 mg HS PRN PO INSOMNIA Last administered on 22:24; Admin Dose 5 MG; Start 04/03/17 at 11:00 Atorvastatin Calcium (Lipitor) 40 mg HS PO Last administered on 04/04/17 21:42 ; Admin Dose 40 MG; Start 04/04/17 at 21:00 Lisinopril (Zestril) 5 mg DAILY PO Last administered on 04/05/17 08:35; Admin Dose 5 MG; Start 04/05/17 at 09:00 EDI MENDOZA April 05, 2017 16:41
--- NOTE | 2017-04-05 16:50 | RADRPT ---
PROCEDURE: US guided right thoracentesis. CLINICAL INDICATION: Shortness of breath. Right pleural effusion. TECHNIQUE: Prior to the procedure, informed consent was obtained. The risks, benefits, and alternatives were e xplained to the patient or the patient's family, including but not limited to bleeding, infection, p ain, visceral or vascular damage, shock, pneumothorax, chest tube placement, air embolism, and . The patient or the patient's family understood the risks and the alternatives and wished to proce ed with the study. Informed written consent was obtained. A procedural pause was performed. The patient's name, date of , and procedure to be performed were verified. Ultrasound of the right hemithorax was performed in the axial and sagittal planes. A right pleural e ffusion is noted. Utilizing ultrasound guidance, optimal location for entry to the pleural cavity wa s ascertained. The overlying skin was prepped and draped in the usual sterile fashion. Approximate ly 10 ml of 1% Xylocaine was injected locally for pain control. Using ultrasound guidance, a 5-Fren Yueh catheter was introduced into the right pleural space without difficulty. Fluid was aspirated . COMPARISON: None. FINDINGS: Initial ultrasound demonstrates fluid in the right pleural space. Approximately 1.35 liters of sero sanguineous fluid was aspirated and sent to the patient's nurse. IMPRESSION: 1. Satisfactory ultrasound-guided right thoracentesis. RPTAT: QQ .Ronald Jarrett MD, Date Time Electronically viewed and signed by .Ronald Jarrett MD, on 04/05/2017 16:50 .R/
[2017-04-05] MEDS ORDERED: LIDOCAINE 1% (MPF) 5 ML VIAL ONE (16:52)
--- NOTE | 2017-04-05 17:11 | RADRPT ---
PROCEDURE: XR Chest. CLINICAL INDICATION: Shortness of breath. Post right thoracentesis. TECHNIQUE: Single frontal view. COMPARISON: 04/05/2017. 0913 hours. FINDINGS: There is marked improved aeration of the right lung with only minimal atelectasis now present in the right lung base. Previously noted right pleural effusion is no longer present. There is a persist ent moderate left pleural effusion. There is left basilar atelectasis or pneumonia, unchanged. The heart is mildly enlarged. There are sternal wires and mediastinal clips. There is no pneumothorax. IMPRESSION: 1. No pneumothorax following right thoracentesis. 2. Improved aeration of the right lung. RPTAT: QQ .Ronald Jarrett MD, MD Date Time Electronically viewed and signed by .Ronald Jarrett MD, on 04/05/2017 17:11 .R/
--- NOTE | 2017-04-05 18:55 | CONS ---
Date/Time of Note Date/Time of Note DATE: 04/05/17 TIME: 18:48 Assessment/Plan Assessment/Plan Chief Complaint/Hosp Course - Postop sepsis of unknown etiology vs SIRS - fever and leukocytosis are improving - CAD s/p CABG x5 on 03/29/2017 - S/p MV replacement 03/29/2017 - S/p R coronary endarterectomy. - S/p Hypoxemic respiratory failure, extubated 04/01/2017 - Acute decompensated systolic CHF - on IV lasix - Thrombocytopenia - improving; hepatitis screen negative - Pleural effusion, s/p R thoracentesis with 1.35 liters of serosanguineous fluid aspirated 04/05/17 recommendations: - Add gram stain, LDH, and protein to pleural fluid collected today; check serum LDH and protein - repeat pancultures if temp >100.4F - complete empiric Meropenem (04/01/2017-) Management d/w VANIA Alvarez and Dr. Gaines Problems: Consultation Date/Type/Reason Admit Date/Time March 29, 2017 at 09:30 Initial Consult Date 04/01/17 Type of Consultation: Infectious Disease Referring Provider: RUBI BROCK MD 24 HR Interval Summary Free Text/Dictation Had US guided right thoracentesis today per VANIA Alvarez. Pt with no complaints per family. Exam/Review of Systems Vital Signs Vitals Vital Signs Date Time Temp Pulse Resp B/P Pulse Ox O2 Delivery O2 Flow Rate FiO2 04/05/17 17:29 2.0 04/05/17 16:14 89 04/05/17 15:31 97.7 18 108/59 95 04/05/17 08:39 Nasal Cannula 04/01/17 17:10 40 Intake and Output 04/04/17 04/04/17 04/05/17 15:00 23:00 07:00 Intake Total 850 ml 500 ml Output Total 1200 ml Balance -350 ml 500 ml Exam Constitutional: alert, oriented, well developed, sitting in chair in NAD. Family at bedside. Psych: nl mood/affect Head: atraumatic, normocephalic Eyes: nl sclera Neck: supple Respiratory: diminished breath sounds Cardiovascular: nl pulses, regular rate and rhythm Gastrointestinal: non-tender, soft Musculoskeletal: nl extremities to inspection Extremities: No clubbing, No cyanosis Neurological: nl mental status, nl speech (Primarily [place]ian speaking) Skin: nl turgor, other (sternal wound and harvest site with incisions well approximated and no e/o infection) Results Result Diagram: 04/05/17 0630 04/05/17 0630 Results 24 hrs Laboratory Tests Test 04/04/17 21:37 04/05/17 06:30 04/05/17 07:52 04/05/17 11:58 Bedside Glucose 110 101 102 White Blood Count 12.4 #H Red Blood Count 3.12 L Hemoglobin 9.6 L Hematocrit 29.2 L Mean Corpuscular Volume 93.6 Mean Corpuscular Hemoglobin 30.8 Mean Corpuscular Hemoglobin Concent 32.9 Red Cell Distribution Width 14.9 H Platelet Count 124 #L Mean Platelet Volume 12.8 H Neutrophils % 72.8 Lymphocytes % 12.2 L Monocytes % 10.4 Eosinophils % 3.2 Basophils % 0.3 Nucleated Red Blood Cells % 0.0 Neutrophils # 9.0 H Lymphocytes # 1.5 Monocytes # 1.3 H Eosinophils # 0.4 Basophils # 0.0 Nucleated Red Blood Cells # 0.0 Sodium Level 136 Potassium Level 3.5 Chloride Level 100 Carbon Dioxide Level 32 H Anion Gap 8 Blood Urea Nitrogen 28 #H Creatinine 0.58 L Glucose Level 107 Calcium Level 8.4 Magnesium Level 1.9 Test 04/05/17 18:32 Bedside Glucose 175 Medications Medications Current Medications Acetaminophen (Tylenol Supp) 650 mg Q3H PRN [place] ELEVATED TEMPERATURE Last administered on 04/01/17 18:32; Admin Dose 650 MG; Start 03/29/17 at 23:30 Hydromorphone HCl (Dilaudid) 0.2 mg Q2H PRN IV PAIN Last administered on 01:39; Admin Dose 0.2 MG; Start 03/30/17 at 00:30 Hydromorphone HCl (Dilaudid) 0.4 mg Q2H PRN IV PAIN Last administered on 17:32; Admin Dose 0.4 MG; Start 03/30/17 at 00:30 Pantoprazole 40 mg 40 mg DAILY@06 IV Last administered on 04/05/17 06:17; Admin Dose 40 MG; Start 03/31/17 at 06:00 Meropenem (Merrem 1 Gm/100 ml (Pmx)) 100 ml @ 200 mls/hr Q8 IVPB Last administered on 04/05/17 14:48; Admin Dose 200 MLS/HR; Start 04/01/17 at 10:00 Hydralazine HCl (Apresoline) 10 mg Q4H PRN IV ELEVATED BLOOD PRESSURE; Start at 20:00 Metoprolol Tartrate (Lopressor) 25 mg BID PO Last administered on 04/05/17 08: 35; Admin Dose 25 MG; Start 04/02/17 at 12:00 Diagnostic Test (Pha) (Accu-Chek) 1 ea 02 XX ; Start 04/03/17 at 02:00 Miscellaneous Information 1 ea NOTE XX ; Start 04/02/17 at 12:00 Glucose (Glutose) 15 gm Q15M PRN PO DECREASED GLUCOSE; Start 04/02/17 at 12:00 Glucose (Glutose) 22.5 gm Q15M PRN PO DECREASED GLUCOSE; Start 04/02/17 at 12: 00 Dextrose (D50w Syringe) 25 ml Q15M PRN IV DECREASED GLUCOSE; Start 04/02/17 at 12:00 Dextrose (D50w Syringe) 50 ml Q15M PRN IV DECREASED GLUCOSE; Start 04/02/17 at 12:00 Glucagon (Glucagen) 1 mg Q15M PRN IM DECREASED GLUCOSE; Start 04/02/17 at 12:00 Glucose (Glutose) 15 gm Q15M PRN BUCCAL DECREASED GLUCOSE; Start 04/02/17 at 12 :00 Zolpidem Tartrate (Ambien) 5 mg HS PRN PO INSOMNIA Last administered on 22:24; Admin Dose 5 MG; Start 04/03/17 at 11:00 Atorvastatin Calcium (Lipitor) 40 mg HS PO Last administered on 04/04/17 21:42 ; Admin Dose 40 MG; Start 04/04/17 at 21:00 Lisinopril (Zestril) 5 mg DAILY PO Last administered on 04/05/17 08:35; Admin Dose 5 MG; Start 04/05/17 at 09:00 Procedures Procedures CXR 04/05/2017: No significant change. Mild cardiomegaly with pulmonary vascular congestion. Moderate bilateral pleural effusions. VIRY CLEMENTS NP April 05, 2017 18:55
[2017-04-05] MEDS: ATORVASTATIN 40 MG TAB PO SCH (21:08)
[2017-04-05 21:31] LABS: FLUID LD 862 U/L; FLUID TOTAL PROTEIN 2.1 g/dl; FLUID TYPE FLUID
[2017-04-05] MEDS: ZOLPIDEM 5 MG TAB PO PRN (22:23)
[2017-04-05 22:59] LABS: TOTAL PROTEIN 5.3 g/dl (6.1-8.1)
[2017-04-06] VITALS (11 sets, daily range): BP systolic 103–117; BP diastolic 58–64; PULSE 83–92; RESP 17–18
[2017-04-06] MEDS: ACCU-CHEK XX SCH (02:00)
[2017-04-06] MEDS: MEROPENEM 1 GM/100 ML (PMX) 100 ML IVPB SCH (06:00)
[2017-04-06] MEDS: FUROSEMIDE 40 MG INJ IV SCH ×2 (06:00→17:18)
[2017-04-06] MEDS: PANTOPRAZOLE 40 MG INJ IV SCH (06:00)
[2017-04-06 07:33] LABS: ADD SCAN DIFF NO
[2017-04-06 07:35] LABS: BASOPHILS % 0.3 % (0.0-2.0); EOSINOPHILS # 0.4 10^3/ul (0.0-0.5); EOSINOPHILS % 3.4 % (0.0-7.0); HEMATOCRIT 29.9 % (42.0-52.0); LYMPHOCYTES # 1.6 10^3/ul (0.8-2.9); MEAN CORPUSCULAR HEMOGLOBIN 31.2 pg (29.0-33.0); MEAN CORPUSCULAR HGB CONC 33.4 g/dl (32.0-37.0); MEAN CORPUSCULAR VOLUME 93.1 fl (82.0-101.0); MEAN PLATELET VOLUME 12.3 fl (7.4-10.4); MONOCYTES % 7.9 % (0.0-11.0); NEUTROPHIL # 9.1 10^3/ul (1.6-7.5); NEUTROPHILS % 73.9 % (39.0-77.0); PLATELET COUNT 171 10^3/UL (140-415); RED BLOOD COUNT 3.21 10^6/ul (4.70-6.10); RED CELL DISTRIBUTION WIDTH 14.8 % (11.5-14.5); WHITE BLOOD COUNT 12.4 10^3/ul (4.8-10.8)
[2017-04-06] MEDS: INSULIN ASPART [NOVOLOG] 3 ML PEN SC SCH ×4 (07:43→21:00)
[2017-04-06 08:05] LABS: CALCIUM 8.8 mg/dl (8.4-10.2); CREATININE 0.62 mg/dl (0.61-1.24); POTASSIUM 3.8 mmol/L (3.5-5.1)
[2017-04-06] MEDS: LISINOPRIL 5 MG TAB PO SCH (08:32)
[2017-04-06] MEDS: METOPROLOL 25 MG TAB PO SCH ×2 (08:32→21:00)
[2017-04-06] MEDS ORDERED: POTASSIUM CHLORIDE (SR) 20 MEQ TAB PO STA (10:58)
[2017-04-06] MEDS ORDERED: MAGNESIUM SULFATE 2 GM/50 ML 50 ML IVPB ONE (11:00)
--- NOTE | 2017-04-06 11:03 | CONS ---
Date/Time of Note Date/Time of Note DATE: 04/06/17 TIME: 10:55 Assessment/Plan Assessment/Plan Additional Assessment/Plan Coronary artery disease status post CABG 5 Status post mitral valve replacement Acute decompensated systolic congestive heart failure Cardiomyopathy with ejection fraction 40-45% Pleural effusion ITP NSVT -Chest x-ray with significant improvement in right lung field after thoracentesis. Still with pleural effusion on the left side. Would continue IV diuretics as blood pressure and renal function permits. Episode of NSVT noted overnight while patient sleeping. Supplement potassium to maintain above 4.0 and magnesium above 2.0. Consultation Date/Type/Reason Admit Date/Time March 29, 2017 at 09:30 Initial Consult Date 04/01/17 Type of Consultation: cv Referring Provider: RUBI BROCK MD 24 HR Interval Summary Free Text/Dictation Shortness of breath is much better. Ambulated this morning the hallways with improved symptoms. Denies chest pain or palpitations Exam/Review of Systems Vital Signs Vitals Vital Signs Date Time Temp Pulse Resp B/P Pulse Ox O2 Delivery O2 Flow Rate FiO2 04/06/17 08:29 98.6 86 17 105/58 96 04/06/17 07:44 Nasal Cannula 2.0 Intake and Output 04/05/17 04/05/17 04/06/17 15:00 23:00 07:00 Intake Total 1050 ml 700 ml Balance 1050 ml 700 ml Exam No apparent distress Constitutional: alert, oriented Head: normocephalic Respiratory: other (Coarse breath sounds bilaterally, decreased at the left base, no wheezing) Cardiovascular: other (S1-S2 heard), regular rate and rhythm Gastrointestinal: bowel sounds, non-tender, soft Extremities: edema (Trace) Results Result Diagram: 04/06/17 0710 04/06/17 0710 Results 24 hrs Laboratory Tests Test 04/05/17 11:58 04/05/17 17:00 04/05/17 18:32 04/05/17 20:57 Bedside Glucose 102 175 137 Body Fluid Type FLUID Body Fluid Total Protein 2.1 Body Fluid Lactate Dehydrogenase 862 Test 04/05/17 22:16 04/06/17 07:10 04/06/17 07:34 Lactate Dehydrogenase 866 H Total Protein 5.3 L White Blood Count 12.4 H Red Blood Count 3.21 L Hemoglobin 10.0 L Hematocrit 29.9 L Mean Corpuscular Volume 93.1 Mean Corpuscular Hemoglobin 31.2 Mean Corpuscular Hemoglobin Concent 33.4 Red Cell Distribution Width 14.8 H Platelet Count 171 # Mean Platelet Volume 12.3 H Neutrophils % 73.9 Lymphocytes % 13.0 L Monocytes % 7.9 Eosinophils % 3.4 Basophils % 0.3 Nucleated Red Blood Cells % 0.0 Neutrophils # 9.1 H Lymphocytes # 1.6 Monocytes # 1.0 H Eosinophils # 0.4 Basophils # 0.0 Nucleated Red Blood Cells # 0.0 Sodium Level 137 Potassium Level 3.8 Chloride Level 100 Carbon Dioxide Level 30 Anion Gap 11 Blood Urea Nitrogen 23 H Creatinine 0.62 Glucose Level 110 Calcium Level 8.8 Magnesium Level 1.9 Bedside Glucose 103 Medications Medications Current Medications Acetaminophen (Tylenol Supp) 650 mg Q3H PRN [place] ELEVATED TEMPERATURE Last administered on 04/01/17 18:32; Admin Dose 650 MG; Start 03/29/17 at 23:30 Hydromorphone HCl (Dilaudid) 0.2 mg Q2H PRN IV PAIN Last administered on 01:39; Admin Dose 0.2 MG; Start 03/30/17 at 00:30 Hydromorphone HCl (Dilaudid) 0.4 mg Q2H PRN IV PAIN Last administered on 17:32; Admin Dose 0.4 MG; Start 03/30/17 at 00:30 Pantoprazole 40 mg 40 mg DAILY@06 IV Last administered on 04/06/17 06:00; Admin Dose 40 MG; Start 03/31/17 at 06:00 Meropenem (Merrem 1 Gm/100 ml (Pmx)) 100 ml @ 200 mls/hr Q8 IVPB Last administered on 04/06/17 06:00; Admin Dose 200 MLS/HR; Start 04/01/17 at 10:00 Hydralazine HCl (Apresoline) 10 mg Q4H PRN IV ELEVATED BLOOD PRESSURE; Start at 20:00 Metoprolol Tartrate (Lopressor) 25 mg BID PO Last administered on 04/05/17 21: 08; Admin Dose 25 MG; Start 04/02/17 at 12:00 Diagnostic Test (Pha) (Accu-Chek) 1 ea 02 XX ; Start 04/03/17 at 02:00 Miscellaneous Information 1 ea NOTE XX ; Start 04/02/17 at 12:00 Glucose (Glutose) 15 gm Q15M PRN PO DECREASED GLUCOSE; Start 04/02/17 at 12:00 Glucose (Glutose) 22.5 gm Q15M PRN PO DECREASED GLUCOSE; Start 04/02/17 at 12: 00 Dextrose (D50w Syringe) 25 ml Q15M PRN IV DECREASED GLUCOSE; Start 04/02/17 at 12:00 Dextrose (D50w Syringe) 50 ml Q15M PRN IV DECREASED GLUCOSE; Start 04/02/17 at 12:00 Glucagon (Glucagen) 1 mg Q15M PRN IM DECREASED GLUCOSE; Start 04/02/17 at 12:00 Glucose (Glutose) 15 gm Q15M PRN BUCCAL DECREASED GLUCOSE; Start 04/02/17 at 12 :00 Zolpidem Tartrate (Ambien) 5 mg HS PRN PO INSOMNIA Last administered on 22:23; Admin Dose 5 MG; Start 04/03/17 at 11:00 Atorvastatin Calcium (Lipitor) 40 mg HS PO Last administered on 04/05/17 21:08 ; Admin Dose 40 MG; Start 04/04/17 at 21:00 Lisinopril (Zestril) 5 mg DAILY PO Last administered on 04/05/17 08:35; Admin Dose 5 MG; Start 04/05/17 at 09:00 Ranulfo Alvarado DO April 06, 2017 11:03
--- NOTE | 2017-04-06 13:27 | CONS ---
Date/Time of Note Date/Time of Note DATE: 04/06/17 TIME: 13:25 Assessment/Plan Assessment/Plan Additional Assessment/Plan Assessment recommendations; 1. Patient admitted for underlying coronary artery disease underwent bypass surgery. 2. Underlying mild cardiopathy with CHF. 3. Status post right thoracentesis with significant radiological and clinical improvement. 4. Hypertension. 5. Currently there is no suspicion of any infective process. Discontinue antibiotic. Patient can be discharged home. Consultation Date/Type/Reason Admit Date/Time March 29, 2017 at 09:30 Initial Consult Date 04/01/17 Type of Consultation: Pulmonary Referring Provider: RUBI BROCK MD 24 HR Interval Summary Free Text/Dictation Patient doing very well. Denies any shortness of breath, chest pain. Patient underwent right thoracentesis yesterday 1.35 L of clear fluid was removed. According to patient his breathing is better now. General exam; elderly male, awake alert currently in no distress, sitting in a chair by bedside. Exam/Review of Systems Vital Signs Vitals Vital Signs Date Time Temp Pulse Resp B/P Pulse Ox O2 Delivery O2 Flow Rate FiO2 04/06/17 12:29 92 04/06/17 11:40 97.7 18 109/61 93 04/06/17 07:44 Nasal Cannula 2.0 Intake and Output 04/05/17 04/05/17 04/06/17 15:00 23:00 07:00 Intake Total 1050 ml 700 ml Balance 1050 ml 700 ml Exam HEENT examination; supple neck, no JVD. No lymphadenopathy. Midline trachea. No thyromegaly. Pharynx is clear. Patient has multiple carious teeth. Pupils are small bilaterally. Chest examination; minimally decreased breath sounds left lower lobe otherwise clear to auscultation. There is a well-healed sternal scar. S1-S2 audible, no murmurs. Regular rhythm. Abdomen examination; soft, no organomegaly. Bowel is audible. Extremity examination; no peripheral edema. 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 Results Result Diagram: 04/06/17 0710 04/06/17 0710 Results 24 hrs Laboratory Tests Test 04/05/17 17:00 04/05/17 18:32 04/05/17 20:57 04/05/17 22:16 Body Fluid Type FLUID Body Fluid Total Protein 2.1 Body Fluid Lactate Dehydrogenase 862 Bedside Glucose 175 137 Lactate Dehydrogenase 866 H Total Protein 5.3 L Test 04/06/17 07:10 04/06/17 07:34 04/06/17 12:05 White Blood Count 12.4 H Red Blood Count 3.21 L Hemoglobin 10.0 L Hematocrit 29.9 L Mean Corpuscular Volume 93.1 Mean Corpuscular Hemoglobin 31.2 Mean Corpuscular Hemoglobin Concent 33.4 Red Cell Distribution Width 14.8 H Platelet Count 171 # Mean Platelet Volume 12.3 H Neutrophils % 73.9 Lymphocytes % 13.0 L Monocytes % 7.9 Eosinophils % 3.4 Basophils % 0.3 Nucleated Red Blood Cells % 0.0 Neutrophils # 9.1 H Lymphocytes # 1.6 Monocytes # 1.0 H Eosinophils # 0.4 Basophils # 0.0 Nucleated Red Blood Cells # 0.0 Sodium Level 137 Potassium Level 3.8 Chloride Level 100 Carbon Dioxide Level 30 Anion Gap 11 Blood Urea Nitrogen 23 H Creatinine 0.62 Glucose Level 110 Calcium Level 8.8 Magnesium Level 1.9 Bedside Glucose 103 136 Medications Medications Current Medications Acetaminophen (Tylenol Supp) 650 mg Q3H PRN [place] ELEVATED TEMPERATURE Last administered on 04/01/17 18:32; Admin Dose 650 MG; Start 03/29/17 at 23:30 Hydromorphone HCl (Dilaudid) 0.2 mg Q2H PRN IV PAIN Last administered on 01:39; Admin Dose 0.2 MG; Start 03/30/17 at 00:30 Hydromorphone HCl (Dilaudid) 0.4 mg Q2H PRN IV PAIN Last administered on 17:32; Admin Dose 0.4 MG; Start 03/30/17 at 00:30 Pantoprazole 40 mg 40 mg DAILY@06 IV Last administered on 04/06/17 06:00; Admin Dose 40 MG; Start 03/31/17 at 06:00 Meropenem (Merrem 1 Gm/100 ml (Pmx)) 100 ml @ 200 mls/hr Q8 IVPB Last administered on 04/06/17 06:00; Admin Dose 200 MLS/HR; Start 04/01/17 at 10:00 Hydralazine HCl (Apresoline) 10 mg Q4H PRN IV ELEVATED BLOOD PRESSURE; Start at 20:00 Metoprolol Tartrate (Lopressor) 25 mg BID PO Last administered on 04/05/17 21: 08; Admin Dose 25 MG; Start 04/02/17 at 12:00 Diagnostic Test (Pha) (Accu-Chek) 1 ea 02 XX ; Start 04/03/17 at 02:00 Miscellaneous Information 1 ea NOTE XX ; Start 04/02/17 at 12:00 Glucose (Glutose) 15 gm Q15M PRN PO DECREASED GLUCOSE; Start 04/02/17 at 12:00 Glucose (Glutose) 22.5 gm Q15M PRN PO DECREASED GLUCOSE; Start 04/02/17 at 12: 00 Dextrose (D50w Syringe) 25 ml Q15M PRN IV DECREASED GLUCOSE; Start 04/02/17 at 12:00 Dextrose (D50w Syringe) 50 ml Q15M PRN IV DECREASED GLUCOSE; Start 04/02/17 at 12:00 Glucagon (Glucagen) 1 mg Q15M PRN IM DECREASED GLUCOSE; Start 04/02/17 at 12:00 Glucose (Glutose) 15 gm Q15M PRN BUCCAL DECREASED GLUCOSE; Start 04/02/17 at 12 :00 Zolpidem Tartrate (Ambien) 5 mg HS PRN PO INSOMNIA Last administered on 22:23; Admin Dose 5 MG; Start 04/03/17 at 11:00 Atorvastatin Calcium (Lipitor) 40 mg HS PO Last administered on 04/05/17 21:08 ; Admin Dose 40 MG; Start 04/04/17 at 21:00 Lisinopril (Zestril) 5 mg DAILY PO Last administered on 04/05/17 08:35; Admin Dose 5 MG; Start 04/05/17 at 09:00 TAHIRA TERAN April 06, 2017 13:27
--- NOTE | 2017-04-06 14:37 | CONS ---
Date/Time of Note Date/Time of Note DATE: 04/06/17 TIME: 14:10 Consult Date/Type/Reason Admit Date/Time March 29, 2017 at 09:30 Initial Consult Date 04/01/17 Type of Consultation: Pulmonary Reason for Consultation Infectious Disease f/u for fever and leukocytosis Ordering Provider: RUBI BROCK MD Subjective Breathing much better today and has no pain Objective Vital Signs Date Time Temp Pulse Resp B/P Pulse Ox O2 Delivery O2 Flow Rate FiO2 04/06/17 12:29 92 04/06/17 11:40 97.7 18 109/61 93 04/06/17 07:44 Nasal Cannula 2.0 Intake and Output 04/05/17 04/05/17 04/06/17 15:00 23:00 07:00 Intake Total 1050 ml 700 ml Balance 1050 ml 700 ml Exam Constitutional: well developed male sitting in chair in no acute distress with family at bedside Psych: nl mood/affect Head: atraumatic, normocephalic Eyes: wnl Neck: supple Respiratory: diminished breath sounds, on supplemental oxygen/nasal cannula Cardiovascular: regular rate and rhythm Gastrointestinal: soft, non-tender and non-distended Musculoskeletal: moves all without difficult Extremities: no edema, pulses palpable, IV access right hand Neurological: (speaks Hungarian) alert and oriented per daughter Skin: sternal wound and harvest site with incisions well approximated and no e/ o infection all open to air Results/Medications Result Diagram: 04/06/17 0710 04/06/17 0710 Results 24 hrs Laboratory Tests Test 04/05/17 17:00 04/05/17 18:32 04/05/17 20:57 04/05/17 22:16 Body Fluid Type FLUID Body Fluid Total Protein 2.1 Body Fluid Lactate Dehydrogenase 862 Bedside Glucose 175 137 Lactate Dehydrogenase 866 H Total Protein 5.3 L Test 04/06/17 07:10 04/06/17 07:34 04/06/17 12:05 White Blood Count 12.4 H Red Blood Count 3.21 L Hemoglobin 10.0 L Hematocrit 29.9 L Mean Corpuscular Volume 93.1 Mean Corpuscular Hemoglobin 31.2 Mean Corpuscular Hemoglobin Concent 33.4 Red Cell Distribution Width 14.8 H Platelet Count 171 # Mean Platelet Volume 12.3 H Neutrophils % 73.9 Lymphocytes % 13.0 L Monocytes % 7.9 Eosinophils % 3.4 Basophils % 0.3 Nucleated Red Blood Cells % 0.0 Neutrophils # 9.1 H Lymphocytes # 1.6 Monocytes # 1.0 H Eosinophils # 0.4 Basophils # 0.0 Nucleated Red Blood Cells # 0.0 Sodium Level 137 Potassium Level 3.8 Chloride Level 100 Carbon Dioxide Level 30 Anion Gap 11 Blood Urea Nitrogen 23 H Creatinine 0.62 Glucose Level 110 Calcium Level 8.8 Magnesium Level 1.9 Bedside Glucose 103 136 04/05/2017 CXR IMPRESSION: No significant change. Mild cardiomegaly with pulmonary vascular congestion. Moderate bilateral pleural effusions. Medications Current Medications Acetaminophen (Tylenol Supp) 650 mg Q3H PRN [place] ELEVATED TEMPERATURE Last administered on 04/01/17 18:32; Admin Dose 650 MG; Start 03/29/17 at 23:30 Hydromorphone HCl (Dilaudid) 0.2 mg Q2H PRN IV PAIN Last administered on 01:39; Admin Dose 0.2 MG; Start 03/30/17 at 00:30 Hydromorphone HCl (Dilaudid) 0.4 mg Q2H PRN IV PAIN Last administered on 17:32; Admin Dose 0.4 MG; Start 03/30/17 at 00:30 Pantoprazole (Protonix Iv) 40 mg DAILY@06 IV Last administered on 04/06/17 06: 00; Admin Dose 40 MG; Start 03/31/17 at 06:00 Hydralazine HCl (Apresoline) 10 mg Q4H PRN IV ELEVATED BLOOD PRESSURE; Start at 20:00 Metoprolol Tartrate (Lopressor) 25 mg BID PO Last administered on 04/05/17 21: 08; Admin Dose 25 MG; Start 04/02/17 at 12:00 Diagnostic Test (Pha) (Accu-Chek) 1 ea 02 XX ; Start 04/03/17 at 02:00 Miscellaneous Information 1 ea NOTE XX ; Start 04/02/17 at 12:00 Glucose (Glutose) 15 gm Q15M PRN PO DECREASED GLUCOSE; Start 04/02/17 at 12:00 Glucose (Glutose) 22.5 gm Q15M PRN PO DECREASED GLUCOSE; Start 04/02/17 at 12: 00 Dextrose (D50w Syringe) 25 ml Q15M PRN IV DECREASED GLUCOSE; Start 04/02/17 at 12:00 Dextrose (D50w Syringe) 50 ml Q15M PRN IV DECREASED GLUCOSE; Start 04/02/17 at 12:00 Glucagon (Glucagen) 1 mg Q15M PRN IM DECREASED GLUCOSE; Start 04/02/17 at 12:00 Glucose (Glutose) 15 gm Q15M PRN BUCCAL DECREASED GLUCOSE; Start 04/02/17 at 12 :00 Zolpidem Tartrate (Ambien) 5 mg HS PRN PO INSOMNIA Last administered on 22:23; Admin Dose 5 MG; Start 04/03/17 at 11:00 Atorvastatin Calcium (Lipitor) 40 mg HS PO Last administered on 04/05/17 21:08 ; Admin Dose 40 MG; Start 04/04/17 at 21:00 Lisinopril (Zestril) 5 mg DAILY PO Last administered on 04/05/17 08:35; Admin Dose 5 MG; Start 04/05/17 at 09:00 Assessment/Plan Chief Complaint/Hosp Course Assessment/impression - Postop sepsis of unknown etiology vs SIRS - fever and leukocytosis are improving - CAD s/p CABG x5 on 03/29/2017 - S/p MV replacement 03/29/2017 - S/p R coronary endarterectomy. - S/p Hypoxemic respiratory failure, extubated 04/01/2017 - Acute decompensated systolic CHF - on IV lasix - Thrombocytopenia - improving; hepatitis screen negative - Pleural effusion, s/p R thoracentesis with 1.35 liters of serosanguineous fluid aspirated 04/05/17 - LDH & protein reviewed recommendations: - Gram stain on pleural fluid pending - will review results when available - repeat pancultures if temp >100.4F - complete empiric Meropenem (04/01/2017-) Care and management d/w VANIA Alvarez and Dr. 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
--- NOTE | 2017-04-06 17:05 | PN ---
Date/Time of Note Date/Time of Note DATE: 04/06/17 TIME: 17:02 Assessment/Plan VTE Prophylaxis VTE Prophylaxis Intervention: SCD's Lines/Catheters IV [facility] (from [facility] Sal[facility] Lock Urinary Cath still in place: No Assessment/Plan Chief Complaint/Hosp Course Assessment/Plan - Coronary artery disease status post CABG [address] Littlejohn - Status post mitral valve replacement - Status post right coronary endarterectomy - Respiratory failure, resolving Dr. Zafar is following in pulmonology consultation. - Acute decompensated systolic congestive heart failure, Dr. Chilel is following in cardiology consultation. Continue Lasix monitor electrolytes. - Bilateral pleural effusions, status post thoracentesis with removal of 1.35 mL of serosanguineous fluid yesterday. - Postop sepsis of unknown etiology. Dr. Gaines is following an infection disease consultation. Continue antibiotics per ID. Further recommendations based on clinical course. Plan of care discussed with Dr. Kay. Problems: Subjective 24 Hr Interval Summary Free Text/Dictation Patient of episode of SVT overnight, currently in sinus rhythm, comfortable on supplemental oxygen at rest. Exam/Review of Systems Vital Signs Vitals Vital Signs Date Time Temp Pulse Resp B/P Pulse Ox O2 Delivery O2 Flow Rate FiO2 04/06/17 16:33 87 04/06/17 15:28 97.5 17 103/58 95 04/06/17 07:44 Nasal Cannula 2.0 Intake and Output 04/05/17 04/05/17 04/06/17 15:00 23:00 07:00 Intake Total 1050 ml 700 ml Balance 1050 ml 700 ml Exam Constitutional: alert, oriented Psych: no complaints Head: atraumatic, normocephalic Eyes: nl conjunctiva ENMT: nl external ears & nose Neck: non-tender, supple Respiratory: clear to auscultation Cardiovascular: nl pulses, other (Surgical incision intact), regular rate and rhythm Gastrointestinal: non-tender, soft Musculoskeletal: nl extremities to inspection Extremities: normal pulses Neurological: [employer] II-XII intact Results Result Diagram: 04/06/17 0710 04/06/17 0710 Results 24 hrs Laboratory Tests Test 04/05/17 18:32 04/05/17 20:57 04/05/17 22:16 04/06/17 07:10 Bedside Glucose 175 137 Lactate Dehydrogenase 866 H Total Protein 5.3 L White Blood Count 12.4 H Red Blood Count 3.21 L Hemoglobin 10.0 L Hematocrit 29.9 L Mean Corpuscular Volume 93.1 Mean Corpuscular Hemoglobin 31.2 Mean Corpuscular Hemoglobin Concent 33.4 Red Cell Distribution Width 14.8 H Platelet Count 171 # Mean Platelet Volume 12.3 H Neutrophils % 73.9 Lymphocytes % 13.0 L Monocytes % 7.9 Eosinophils % 3.4 Basophils % 0.3 Nucleated Red Blood Cells % 0.0 Neutrophils # 9.1 H Lymphocytes # 1.6 Monocytes # 1.0 H Eosinophils # 0.4 Basophils # 0.0 Nucleated Red Blood Cells # 0.0 Sodium Level 137 Potassium Level 3.8 Chloride Level 100 Carbon Dioxide Level 30 Anion Gap 11 Blood Urea Nitrogen 23 H Creatinine 0.62 Glucose Level 110 Calcium Level 8.8 Magnesium Level 1.9 Test 04/06/17 07:34 04/06/17 12:05 Bedside Glucose 103 136 Medications Medications Current Medications Acetaminophen (Tylenol Supp) 650 mg Q3H PRN [place] ELEVATED TEMPERATURE Last administered on 04/01/17 18:32; Admin Dose 650 MG; Start 03/29/17 at 23:30 Hydromorphone HCl (Dilaudid) 0.2 mg Q2H PRN IV PAIN Last administered on 01:39; Admin Dose 0.2 MG; Start 03/30/17 at 00:30 Hydromorphone HCl (Dilaudid) 0.4 mg Q2H PRN IV PAIN Last administered on 17:32; Admin Dose 0.4 MG; Start 03/30/17 at 00:30 Pantoprazole (Protonix Iv) 40 mg DAILY@06 IV Last administered on 04/06/17 06: 00; Admin Dose 40 MG; Start 03/31/17 at 06:00 Hydralazine HCl (Apresoline) 10 mg Q4H PRN IV ELEVATED BLOOD PRESSURE; Start at 20:00 Metoprolol Tartrate (Lopressor) 25 mg BID PO Last administered on 04/05/17 21: 08; Admin Dose 25 MG; Start 04/02/17 at 12:00 Diagnostic Test (Pha) (Accu-Chek) 1 ea 02 XX ; Start 04/03/17 at 02:00 Miscellaneous Information 1 ea NOTE XX ; Start 04/02/17 at 12:00 Glucose (Glutose) 15 gm Q15M PRN PO DECREASED GLUCOSE; Start 04/02/17 at 12:00 Glucose (Glutose) 22.5 gm Q15M PRN PO DECREASED GLUCOSE; Start 04/02/17 at 12: 00 Dextrose (D50w Syringe) 25 ml Q15M PRN IV DECREASED GLUCOSE; Start 04/02/17 at 12:00 Dextrose (D50w Syringe) 50 ml Q15M PRN IV DECREASED GLUCOSE; Start 04/02/17 at 12:00 Glucagon (Glucagen) 1 mg Q15M PRN IM DECREASED GLUCOSE; Start 04/02/17 at 12:00 Glucose (Glutose) 15 gm Q15M PRN BUCCAL DECREASED GLUCOSE; Start 04/02/17 at 12 :00 Zolpidem Tartrate (Ambien) 5 mg HS PRN PO INSOMNIA Last administered on 22:23; Admin Dose 5 MG; Start 04/03/17 at 11:00 Atorvastatin Calcium (Lipitor) 40 mg HS PO Last administered on 04/05/17 21:08 ; Admin Dose 40 MG; Start 04/04/17 at 21:00 Lisinopril (Zestril) 5 mg DAILY PO Last administered on 04/05/17 08:35; Admin Dose 5 MG; Start 04/05/17 at 09:00 EDI MENDOZA April 06, 2017 17:05
[2017-04-06] MEDS: ATORVASTATIN 40 MG TAB PO SCH (21:02)
[2017-04-07] VITALS (12 sets, daily range): BP systolic 104–115; BP diastolic 55–60; PULSE 88–97; RESP 18–19
[2017-04-07] MEDS: ACCU-CHEK XX SCH (02:00)
[2017-04-07] MEDS: FUROSEMIDE 40 MG INJ IV SCH (05:16)
[2017-04-07] MEDS: PANTOPRAZOLE 40 MG INJ IV SCH (05:17)
[2017-04-07] MEDS: INSULIN ASPART [NOVOLOG] 3 ML PEN SC SCH ×4 (07:55→20:58)
[2017-04-07 08:19] LABS: ADD SCAN DIFF NO
--- NOTE | 2017-04-07 08:28 | RADRPT ---
PROCEDURE: XR Chest 1 View. CLINICAL INDICATION: Shortness of breath. TECHNIQUE: AP view of the chest was obtained. COMPARISON: April 05, 2017 FINDINGS: The cardiomediastinal silhouette is within normal limits. Median sternotomy wires overlie the heart. Left lower lobe infiltrates and small left pleural effusion are stable. Small right pleural effus ion has developed with associated atelectasis/infiltrate in the right lower lobe. The osseous struct ures are osteopenic, but appear grossly intact. IMPRESSION: Stable left lower lobe infiltrates and small left pleural effusion. Interval development of small right pleural effusion with associated lower lobe atelectasis/infiltra te. RPTAT: AA .Stevie Irizarry MD, Date Time Electronically viewed and signed by .Stevie Irizarry MD, on 04/07/2017 08:27 .P/
[2017-04-07 08:36] LABS: BASOPHIL # 0.1 10^3/ul (0.0-0.1); BASOPHILS % 0.4 % (0.0-2.0); EOSINOPHILS # 0.3 10^3/ul (0.0-0.5); EOSINOPHILS % 2.7 % (0.0-7.0); HEMATOCRIT 30.6 % (42.0-52.0); LYMPHOCYTES # 1.8 10^3/ul (0.8-2.9); MEAN CORPUSCULAR HEMOGLOBIN 30.9 pg (29.0-33.0); MEAN CORPUSCULAR HGB CONC 32.7 g/dl (32.0-37.0); MEAN CORPUSCULAR VOLUME 94.4 fl (82.0-101.0); MEAN PLATELET VOLUME 12.7 fl (7.4-10.4); MONOCYTES % 8.3 % (0.0-11.0); NEUTROPHIL # 8.7 10^3/ul (1.6-7.5); NEUTROPHILS % 72.1 % (39.0-77.0); PLATELET COUNT 202 10^3/UL (140-415); RED BLOOD COUNT 3.24 10^6/ul (4.70-6.10)
[2017-04-07] MEDS: LISINOPRIL 5 MG TAB PO SCH (08:38)
[2017-04-07] MEDS: METOPROLOL 25 MG TAB PO SCH ×2 (08:38→20:58)
[2017-04-07 08:55] LABS: POTASSIUM 3.9 mmol/L (3.5-5.1)
[2017-04-07 08:58] LABS: CREATININE 0.67 mg/dl (0.61-1.24)
[2017-04-07 08:59] LABS: CALCIUM 8.8 mg/dl (8.4-10.2)
--- NOTE | 2017-04-07 11:14 | CONS ---
Date/Time of Note Date/Time of Note DATE: 04/07/17 TIME: 11:11 Assessment/Plan Assessment/Plan Additional Assessment/Plan Coronary artery disease status post CABG 5 Status post mitral valve replacement Acute decompensated systolic congestive heart failure Cardiomyopathy with ejection fraction 40-45% Pleural effusion ITP -We will change Lasix to p.o.. Continue beta-tyrone and ROGER inhibitor as heart rate and blood pressure permits. Continue statin therapy. DC planning Consultation Date/Type/Reason Admit Date/Time March 29, 2017 at 09:30 Initial Consult Date 04/01/17 Type of Consultation: cv Referring Provider: RUBI BROCK MD 24 HR Interval Summary Free Text/Dictation Patient continues to feel better. Denies shortness of breath. Exam/Review of Systems Vital Signs Vitals Vital Signs Date Time Temp Pulse Resp B/P Pulse Ox O2 Delivery O2 Flow Rate FiO2 04/07/17 08:24 92 04/07/17 07:33 98.3 18 108/60 95 04/06/17 23:58 Nasal Cannula 2.0 Intake and Output 04/06/17 04/06/17 04/07/17 15:00 23:00 07:00 Intake Total 100 ml 850 ml 400 ml Balance 100 ml 850 ml 400 ml Exam No apparent distress Constitutional: alert, oriented Head: normocephalic Neck: supple Respiratory: other (Coarse breath sounds bilaterally, decreased at left base) Cardiovascular: other (S1-S2 heard), regular rate and rhythm Gastrointestinal: bowel sounds, non-tender, soft Extremities: other (No edema) Results Result Diagram: 04/07/17 0720 04/07/17 0720 Results 24 hrs Laboratory Tests Test 04/06/17 12:05 04/06/17 17:20 04/06/17 20:25 04/07/17 07:20 Bedside Glucose 136 140 125 White Blood Count 12.0 H Red Blood Count 3.24 L Hemoglobin 10.0 L Hematocrit 30.6 L Mean Corpuscular Volume 94.4 Mean Corpuscular Hemoglobin 30.9 Mean Corpuscular Hemoglobin Concent 32.7 Red Cell Distribution Width 15.0 H Platelet Count 202 Mean Platelet Volume 12.7 H Neutrophils % 72.1 Lymphocytes % 15.0 Monocytes % 8.3 Eosinophils % 2.7 Basophils % 0.4 Nucleated Red Blood Cells % 0.0 Neutrophils # 8.7 H Lymphocytes # 1.8 Monocytes # 1.0 H Eosinophils # 0.3 Basophils # 0.1 Nucleated Red Blood Cells # 0.0 Sodium Level 137 Potassium Level 3.9 Chloride Level 99 Carbon Dioxide Level 27 Anion Gap 15 Blood Urea Nitrogen 22 H Creatinine 0.67 Glucose Level 98 Calcium Level 8.8 Magnesium Level 2.1 Test 04/07/17 07:53 Bedside Glucose 110 Medications Medications Current Medications Acetaminophen (Tylenol Supp) 650 mg Q3H PRN [place] ELEVATED TEMPERATURE Last administered on 04/01/17 18:32; Admin Dose 650 MG; Start 03/29/17 at 23:30 Hydromorphone HCl (Dilaudid) 0.2 mg Q2H PRN IV PAIN Last administered on 01:39; Admin Dose 0.2 MG; Start 03/30/17 at 00:30 Hydromorphone HCl (Dilaudid) 0.4 mg Q2H PRN IV PAIN Last administered on 17:32; Admin Dose 0.4 MG; Start 03/30/17 at 00:30 Pantoprazole (Protonix Iv) 40 mg DAILY@06 IV Last administered on 04/07/17 05: 17; Admin Dose 40 MG; Start 03/31/17 at 06:00 Hydralazine HCl (Apresoline) 10 mg Q4H PRN IV ELEVATED BLOOD PRESSURE; Start at 20:00 Metoprolol Tartrate (Lopressor) 25 mg BID PO Last administered on 04/07/17 08: 38; Admin Dose 25 MG; Start 04/02/17 at 12:00 Diagnostic Test (Pha) (Accu-Chek) 1 ea 02 XX ; Start 04/03/17 at 02:00 Miscellaneous Information 1 ea NOTE XX ; Start 04/02/17 at 12:00 Glucose (Glutose) 15 gm Q15M PRN PO DECREASED GLUCOSE; Start 04/02/17 at 12:00 Glucose (Glutose) 22.5 gm Q15M PRN PO DECREASED GLUCOSE; Start 04/02/17 at 12: 00 Dextrose (D50w Syringe) 25 ml Q15M PRN IV DECREASED GLUCOSE; Start 04/02/17 at 12:00 Dextrose (D50w Syringe) 50 ml Q15M PRN IV DECREASED GLUCOSE; Start 04/02/17 at 12:00 Glucagon (Glucagen) 1 mg Q15M PRN IM DECREASED GLUCOSE; Start 04/02/17 at 12:00 Glucose (Glutose) 15 gm Q15M PRN BUCCAL DECREASED GLUCOSE; Start 04/02/17 at 12 :00 Zolpidem Tartrate (Ambien) 5 mg HS PRN PO INSOMNIA Last administered on 22:23; Admin Dose 5 MG; Start 04/03/17 at 11:00 Atorvastatin Calcium (Lipitor) 40 mg HS PO Last administered on 04/06/17 21:02 ; Admin Dose 40 MG; Start 04/04/17 at 21:00 Lisinopril (Zestril) 5 mg DAILY PO Last administered on 04/07/17 08:38; Admin Dose 5 MG; Start 04/05/17 at 09:00 Ranulfo Alvarado DO April 07, 2017 11:14
--- NOTE | 2017-04-07 11:15 | CONS ---
Date/Time of Note Date/Time of Note DATE: 04/07/17 TIME: 11:14 Consult Date/Type/Reason Admit Date/Time March 29, 2017 at 09:30 Initial Consult Date 03/30/17 Type of Consultation: Pulmonary Ordering Provider: RUBI BROCK MD Subjective Patient remains stable this morning no new events Denies shortness of breath Objective Vital Signs Date Time Temp Pulse Resp B/P Pulse Ox O2 Delivery O2 Flow Rate FiO2 04/07/17 11:12 98.3 88 18 106/55 99 04/06/17 23:58 Nasal Cannula 2.0 Intake and Output 04/06/17 04/06/17 04/07/17 15:00 23:00 07:00 Intake Total 100 ml 850 ml 400 ml Balance 100 ml 850 ml 400 ml Exam GENERAL: VITAL SIGNS: per chart NECK: Supple. No JVD or lymphadenopathy. CARDIAC EXAM: S1, S2. No added sounds or murmurs. CHEST: clear bilaterally, No added sounds, rales or wheezes ABDOMEN: Soft, nontender. No guarding or rebound. EXTREMITIES: No cyanosis, clubbing or edema. NEUROLOGIC: Generalized weakness. No focal deficits. Well-nourished well- developed gentleman comfortable at rest Results/Medications Result Diagram: 04/07/17 0720 04/07/17 0720 Results 24 hrs Laboratory Tests Test 04/06/17 12:05 04/06/17 17:20 04/06/17 20:25 04/07/17 07:20 Bedside Glucose 136 140 125 White Blood Count 12.0 H Red Blood Count 3.24 L Hemoglobin 10.0 L Hematocrit 30.6 L Mean Corpuscular Volume 94.4 Mean Corpuscular Hemoglobin 30.9 Mean Corpuscular Hemoglobin Concent 32.7 Red Cell Distribution Width 15.0 H Platelet Count 202 Mean Platelet Volume 12.7 H Neutrophils % 72.1 Lymphocytes % 15.0 Monocytes % 8.3 Eosinophils % 2.7 Basophils % 0.4 Nucleated Red Blood Cells % 0.0 Neutrophils # 8.7 H Lymphocytes # 1.8 Monocytes # 1.0 H Eosinophils # 0.3 Basophils # 0.1 Nucleated Red Blood Cells # 0.0 Sodium Level 137 Potassium Level 3.9 Chloride Level 99 Carbon Dioxide Level 27 Anion Gap 15 Blood Urea Nitrogen 22 H Creatinine 0.67 Glucose Level 98 Calcium Level 8.8 Magnesium Level 2.1 Test 04/07/17 07:53 Bedside Glucose 110 Medications Current Medications Acetaminophen (Tylenol Supp) 650 mg Q3H PRN [place] ELEVATED TEMPERATURE Last administered on 04/01/17 18:32; Admin Dose 650 MG; Start 03/29/17 at 23:30 Hydromorphone HCl (Dilaudid) 0.2 mg Q2H PRN IV PAIN Last administered on 01:39; Admin Dose 0.2 MG; Start 03/30/17 at 00:30 Hydromorphone HCl (Dilaudid) 0.4 mg Q2H PRN IV PAIN Last administered on 17:32; Admin Dose 0.4 MG; Start 03/30/17 at 00:30 Pantoprazole (Protonix Iv) 40 mg DAILY@06 IV Last administered on 04/07/17 05: 17; Admin Dose 40 MG; Start 03/31/17 at 06:00 Hydralazine HCl (Apresoline) 10 mg Q4H PRN IV ELEVATED BLOOD PRESSURE; Start at 20:00 Metoprolol Tartrate (Lopressor) 25 mg BID PO Last administered on 04/07/17 08: 38; Admin Dose 25 MG; Start 04/02/17 at 12:00 Diagnostic Test (Pha) (Accu-Chek) 1 ea 02 XX ; Start 04/03/17 at 02:00 Miscellaneous Information 1 ea NOTE XX ; Start 04/02/17 at 12:00 Glucose (Glutose) 15 gm Q15M PRN PO DECREASED GLUCOSE; Start 04/02/17 at 12:00 Glucose (Glutose) 22.5 gm Q15M PRN PO DECREASED GLUCOSE; Start 04/02/17 at 12: 00 Dextrose (D50w Syringe) 25 ml Q15M PRN IV DECREASED GLUCOSE; Start 04/02/17 at 12:00 Dextrose (D50w Syringe) 50 ml Q15M PRN IV DECREASED GLUCOSE; Start 04/02/17 at 12:00 Glucagon (Glucagen) 1 mg Q15M PRN IM DECREASED GLUCOSE; Start 04/02/17 at 12:00 Glucose (Glutose) 15 gm Q15M PRN BUCCAL DECREASED GLUCOSE; Start 04/02/17 at 12 :00 Zolpidem Tartrate (Ambien) 5 mg HS PRN PO INSOMNIA Last administered on 22:23; Admin Dose 5 MG; Start 04/03/17 at 11:00 Atorvastatin Calcium (Lipitor) 40 mg HS PO Last administered on 04/06/17 21:02 ; Admin Dose 40 MG; Start 04/04/17 at 21:00 Lisinopril (Zestril) 5 mg DAILY PO Last administered on 04/07/17 08:38; Admin Dose 5 MG; Start 04/05/17 at 09:00 Assessment/Plan Chief Complaint/Hosp Course Assessment 1. Status post 5 vessel coronary artery bypass graft surgery and mitral valve replacement 2. Hypoxemic respiratory failure 3. Pulmonary edema radiographically 4. Leukocytosis concerning for possible line sepsis versus pneumonia 5. Encephalopathy toxic metabolic 6. Shock likely component of septic and cardiogenic Plan 1. Ambulate 2. Continue cardiac meds 3. Broaden antibiotics consider ID consult de-escalation of antibiotics 4. Aspiration precautions 5. DVT GI prophylaxis Disposition Discharge planning Problems: MUNDO JONES MD, [facility] April 07, 2017 11:15
--- NOTE | 2017-04-07 13:44 | PN ---
Date/Time of Note Date/Time of Note DATE: 04/07/17 TIME: 13:42 Assessment/Plan VTE Prophylaxis VTE Prophylaxis Intervention: other Lines/Catheters [facility]from [facility] Saline Lock Urinary Cath still in place: No Assessment/Plan Assessment/Plan - Coronary artery disease status post CABG [address] Littlejohn - no chest pain at present - Status post mitral valve replacement - Status post right coronary endarterectomy - Respiratory failure, resolving Dr. Zafar is following in pulmonology consultation. - Acute decompensated systolic congestive heart failure, Dr. Chilel is following in cardiology consultation. Continue Lasix monitor electrolytes. - Bilateral pleural effusions, status post thoracentesis with removal of 1.35 mL of serosanguineous fluid yesterday. - Postop sepsis of unknown etiology. Dr. Gaines is following an infection disease consultation. Continue antibiotics per ID. Further recommendations based on clinical course. Plan of care discussed with Dr. Kay. Subjective 24 Hr Interval Summary Free Text/Dictation no chest pain. ambulating to bathroom, family at bed side, dw satff Constitutional: requiring O2 Exam/Review of Systems Vital Signs Vitals Vital Signs Date Time Temp Pulse Resp B/P Pulse Ox O2 Delivery O2 Flow Rate FiO2 04/07/17 12:16 88 04/07/17 11:12 98.3 18 106/55 99 04/06/17 23:58 Nasal Cannula 2.0 Intake and Output 04/06/17 04/06/17 04/07/17 14:59 22:59 06:59 Intake Total 100 ml 850 ml 400 ml Balance 100 ml 850 ml 400 ml Exam Constitutional: alert Psych: nl mood/affect Head: atraumatic Eyes: nl sclera ENMT: nl external ears & nose Neck: non-tender Respiratory: clear to auscultation Gastrointestinal: non-tender, soft Neurological: nl speech Results Result Diagram: 04/07/17 0720 04/07/17 0720 Results 24 hrs Laboratory Tests Test 04/06/17 17:20 04/06/17 20:25 04/07/17 07:20 04/07/17 07:53 Bedside Glucose 140 125 110 White Blood Count 12.0 H Red Blood Count 3.24 L Hemoglobin 10.0 L Hematocrit 30.6 L Mean Corpuscular Volume 94.4 Mean Corpuscular Hemoglobin 30.9 Mean Corpuscular Hemoglobin Concent 32.7 Red Cell Distribution Width 15.0 H Platelet Count 202 Mean Platelet Volume 12.7 H Neutrophils % 72.1 Lymphocytes % 15.0 Monocytes % 8.3 Eosinophils % 2.7 Basophils % 0.4 Nucleated Red Blood Cells % 0.0 Neutrophils # 8.7 H Lymphocytes # 1.8 Monocytes # 1.0 H Eosinophils # 0.3 Basophils # 0.1 Nucleated Red Blood Cells # 0.0 Sodium Level 137 Potassium Level 3.9 Chloride Level 99 Carbon Dioxide Level 27 Anion Gap 15 Blood Urea Nitrogen 22 H Creatinine 0.67 Glucose Level 98 Calcium Level 8.8 Magnesium Level 2.1 Test 04/07/17 12:01 Bedside Glucose 111 Medications Medications Current Medications Acetaminophen (Tylenol Supp) 650 mg Q3H PRN [place] ELEVATED TEMPERATURE Last administered on 04/01/17 18:32; Admin Dose 650 MG; Start 03/29/17 at 23:30 Hydromorphone HCl (Dilaudid) 0.2 mg Q2H PRN IV PAIN Last administered on 01:39; Admin Dose 0.2 MG; Start 03/30/17 at 00:30 Hydromorphone HCl (Dilaudid) 0.4 mg Q2H PRN IV PAIN Last administered on 17:32; Admin Dose 0.4 MG; Start 03/30/17 at 00:30 Pantoprazole (Protonix Iv) 40 mg DAILY@06 IV Last administered on 04/07/17 05: 17; Admin Dose 40 MG; Start 03/31/17 at 06:00 Hydralazine HCl (Apresoline) 10 mg Q4H PRN IV ELEVATED BLOOD PRESSURE; Start at 20:00 Metoprolol Tartrate (Lopressor) 25 mg BID PO Last administered on 04/07/17 08: 38; Admin Dose 25 MG; Start 04/02/17 at 12:00 Diagnostic Test (Pha) (Accu-Chek) 1 ea 02 XX ; Start 04/03/17 at 02:00 Miscellaneous Information 1 ea NOTE XX ; Start 04/02/17 at 12:00 Glucose (Glutose) 15 gm Q15M PRN PO DECREASED GLUCOSE; Start 04/02/17 at 12:00 Glucose (Glutose) 22.5 gm Q15M PRN PO DECREASED GLUCOSE; Start 04/02/17 at 12: 00 Dextrose (D50w Syringe) 25 ml Q15M PRN IV DECREASED GLUCOSE; Start 04/02/17 at 12:00 Dextrose (D50w Syringe) 50 ml Q15M PRN IV DECREASED GLUCOSE; Start 04/02/17 at 12:00 Glucagon (Glucagen) 1 mg Q15M PRN IM DECREASED GLUCOSE; Start 04/02/17 at 12:00 Glucose (Glutose) 15 gm Q15M PRN BUCCAL DECREASED GLUCOSE; Start 04/02/17 at 12 :00 Zolpidem Tartrate (Ambien) 5 mg HS PRN PO INSOMNIA Last administered on 22:23; Admin Dose 5 MG; Start 04/03/17 at 11:00 Atorvastatin Calcium (Lipitor) 40 mg HS PO Last administered on 04/06/17 21:02 ; Admin Dose 40 MG; Start 04/04/17 at 21:00 Lisinopril (Zestril) 5 mg DAILY PO Last administered on 04/07/17 08:38; Admin Dose 5 MG; Start 04/05/17 at 09:00 NADINE NELSON April 07, 2017 13:43
[2017-04-07] MEDS: FUROSEMIDE 40 MG TAB PO SCH (18:19)
--- NOTE | 2017-04-07 18:20 | CONS ---
Date/Time of Note Date/Time of Note DATE: 04/07/17 TIME: 18:19 Assessment/Plan Assessment/Plan Chief Complaint/Hosp Course - Postop sepsis of unknown etiology vs SIRS - fever and leukocytosis are improving - CAD s/p CABG x5 on 03/29/2017 - S/p MV replacement 03/29/2017 - S/p R coronary endarterectomy. - S/p Hypoxemic respiratory failure, extubated 04/01/2017 - Acute decompensated systolic CHF - on IV lasix - Thrombocytopenia - improving; hepatitis screen negative - Pleural effusion, s/p R thoracentesis with 1.35 liters of serosanguineous fluid aspirated 04/05/17 - LDH & protein reviewed recommendations: - Monitor off abx Problems: Consultation Date/Type/Reason Admit Date/Time March 29, 2017 at 09:30 Initial Consult Date 03/30/17 Type of Consultation: id Referring Provider: RUBI BROCK MD 24 HR Interval Summary Free Text/Dictation d/w family at bedside. feeling well. Exam/Review of Systems Vital Signs Vitals Vital Signs Date Time Temp Pulse Resp B/P Pulse Ox O2 Delivery O2 Flow Rate FiO2 04/07/17 16:13 93 04/07/17 15:34 98.5 19 104/57 95 04/06/17 23:58 Nasal Cannula 2.0 Intake and Output 04/06/17 04/06/17 04/07/17 15:00 23:00 07:00 Intake Total 100 ml 850 ml 400 ml Balance 100 ml 850 ml 400 ml Exam Constitutional: alert, oriented, well developed Psych: nl mood/affect, no complaints Head: atraumatic, normocephalic Eyes: EOMI, PERRL, nl conjunctiva, nl lids, nl sclera ENMT: nl external ears & nose, nl lips & teeth, nl nasal mucosa & septum Respiratory: clear to auscultation, normal air movement Cardiovascular: nl pulses, regular rate and rhythm Results Result Diagram: 04/07/17 0720 04/07/17 0720 Results 24 hrs Laboratory Tests Test 04/06/17 20:25 04/07/17 07:20 04/07/17 07:53 04/07/17 12:01 Bedside Glucose 125 110 111 White Blood Count 12.0 H Red Blood Count 3.24 L Hemoglobin 10.0 L Hematocrit 30.6 L Mean Corpuscular Volume 94.4 Mean Corpuscular Hemoglobin 30.9 Mean Corpuscular Hemoglobin Concent 32.7 Red Cell Distribution Width 15.0 H Platelet Count 202 Mean Platelet Volume 12.7 H Neutrophils % 72.1 Lymphocytes % 15.0 Monocytes % 8.3 Eosinophils % 2.7 Basophils % 0.4 Nucleated Red Blood Cells % 0.0 Neutrophils # 8.7 H Lymphocytes # 1.8 Monocytes # 1.0 H Eosinophils # 0.3 Basophils # 0.1 Nucleated Red Blood Cells # 0.0 Sodium Level 137 Potassium Level 3.9 Chloride Level 99 Carbon Dioxide Level 27 Anion Gap 15 Blood Urea Nitrogen 22 H Creatinine 0.67 Glucose Level 98 Calcium Level 8.8 Magnesium Level 2.1 Test 04/07/17 17:19 Bedside Glucose 151 Medications Medications Current Medications Acetaminophen (Tylenol Supp) 650 mg Q3H PRN [place] ELEVATED TEMPERATURE Last administered on 04/01/17 18:32; Admin Dose 650 MG; Start 03/29/17 at 23:30 Hydromorphone HCl (Dilaudid) 0.2 mg Q2H PRN IV PAIN Last administered on 01:39; Admin Dose 0.2 MG; Start 03/30/17 at 00:30 Hydromorphone HCl (Dilaudid) 0.4 mg Q2H PRN IV PAIN Last administered on 17:32; Admin Dose 0.4 MG; Start 03/30/17 at 00:30 Pantoprazole (Protonix Iv) 40 mg DAILY@06 IV Last administered on 04/07/17 05: 17; Admin Dose 40 MG; Start 03/31/17 at 06:00 Hydralazine HCl (Apresoline) 10 mg Q4H PRN IV ELEVATED BLOOD PRESSURE; Start at 20:00 Metoprolol Tartrate (Lopressor) 25 mg BID PO Last administered on 04/07/17 08: 38; Admin Dose 25 MG; Start 04/02/17 at 12:00 Diagnostic Test (Pha) (Accu-Chek) 1 ea 02 XX ; Start 04/03/17 at 02:00 Miscellaneous Information 1 ea NOTE XX ; Start 04/02/17 at 12:00 Glucose (Glutose) 15 gm Q15M PRN PO DECREASED GLUCOSE; Start 04/02/17 at 12:00 Glucose (Glutose) 22.5 gm Q15M PRN PO DECREASED GLUCOSE; Start 04/02/17 at 12: 00 Dextrose (D50w Syringe) 25 ml Q15M PRN IV DECREASED GLUCOSE; Start 04/02/17 at 12:00 Dextrose (D50w Syringe) 50 ml Q15M PRN IV DECREASED GLUCOSE; Start 04/02/17 at 12:00 Glucagon (Glucagen) 1 mg Q15M PRN IM DECREASED GLUCOSE; Start 04/02/17 at 12:00 Glucose (Glutose) 15 gm Q15M PRN BUCCAL DECREASED GLUCOSE; Start 04/02/17 at 12 :00 Zolpidem Tartrate (Ambien) 5 mg HS PRN PO INSOMNIA Last administered on 22:23; Admin Dose 5 MG; Start 04/03/17 at 11:00 Atorvastatin Calcium (Lipitor) 40 mg HS PO Last administered on 04/06/17 21:02 ; Admin Dose 40 MG; Start 04/04/17 at 21:00 Lisinopril (Zestril) 5 mg DAILY PO Last administered on 04/07/17 08:38; Admin Dose 5 MG; Start 04/05/17 at 09:00 ROSIO LAWRENCE MD April 07, 2017 18:20
[2017-04-07] MEDS: ATORVASTATIN 40 MG TAB PO SCH (20:58)
[2017-04-08] VITALS (8 sets, daily range): BP systolic 95–124; BP diastolic 55–69; PULSE 84–90; RESP 18
[2017-04-08] MEDS: ACCU-CHEK XX SCH (00:58)
[2017-04-08] MEDS: FUROSEMIDE 40 MG TAB PO SCH (05:37)
[2017-04-08] MEDS: PANTOPRAZOLE 40 MG INJ IV SCH (05:37)
[2017-04-08 06:16] LABS: ADD SCAN DIFF NO
[2017-04-08 06:32] LABS: BASOPHILS % 0.3 % (0.0-2.0); EOSINOPHILS # 0.3 10^3/ul (0.0-0.5); EOSINOPHILS % 2.6 % (0.0-7.0); HEMATOCRIT 28.4 % (42.0-52.0); HEMOGLOBIN 9.2 g/dl (14.0-18.0); LYMPHOCYTES # 1.9 10^3/ul (0.8-2.9); LYMPHOCYTES % 16.1 % (15.0-51.0); MEAN CORPUSCULAR HEMOGLOBIN 30.6 pg (29.0-33.0); MEAN CORPUSCULAR HGB CONC 32.4 g/dl (32.0-37.0); MEAN CORPUSCULAR VOLUME 94.4 fl (82.0-101.0); MEAN PLATELET VOLUME 12.2 fl (7.4-10.4); MONOCYTE # 0.9 10^3/ul (0.3-0.9); MONOCYTES % 7.7 % (0.0-11.0); NEUTROPHIL # 8.3 10^3/ul (1.6-7.5); NEUTROPHILS % 72.2 % (39.0-77.0); PLATELET COUNT 200 10^3/UL (140-415); RED BLOOD COUNT 3.01 10^6/ul (4.70-6.10); WHITE BLOOD COUNT 11.5 10^3/ul (4.8-10.8)
[2017-04-08 07:00] LABS: CALCIUM 8.5 mg/dl (8.4-10.2); CREATININE 0.61 mg/dl (0.61-1.24)
[2017-04-08] MEDS: INSULIN ASPART [NOVOLOG] 3 ML PEN SC SCH ×2 (07:55→11:50)
[2017-04-08] MEDS: METOPROLOL 25 MG TAB PO SCH (08:48)
[2017-04-08] MEDS: LISINOPRIL 5 MG TAB PO SCH (08:48)
--- NOTE | 2017-04-08 09:54 | CONS ---
Date/Time of Note Date/Time of Note DATE: 04/08/17 TIME: 09:52 Assessment/Plan Assessment/Plan Additional Assessment/Plan Coronary artery disease status post CABG 5 Status post mitral valve replacement Acute decompensated systolic congestive heart failure Cardiomyopathy with ejection fraction 40-45% Pleural effusion ITP -Patient with continual improvement in respiratory status. Blood pressure trend remained stable. Would continue beta-tyrone and ROGER inhibitor as blood pressure and renal function permits. Would switch Lasix to 40 mg p.o. daily upon discharge. Will restart aspirin. DC planning Consultation Date/Type/Reason Admit Date/Time March 29, 2017 at 09:30 Initial Consult Date 04/01/17 Type of Consultation: cv Referring Provider: RUBI BROCK MD 24 HR Interval Summary Free Text/Dictation Denies shortness of breath, dizziness at rest or with activity. Exam/Review of Systems Vital Signs Vitals Vital Signs Date Time Temp Pulse Resp B/P Pulse Ox O2 Delivery O2 Flow Rate FiO2 04/08/17 08:00 86 04/08/17 07:28 98.5 18 116/58 97 04/06/17 23:58 Nasal Cannula 2.0 Intake and Output 04/07/17 04/07/17 04/08/17 15:00 23:00 07:00 Intake Total 900 ml 250 ml Balance 900 ml 250 ml Exam No apparent distress Constitutional: alert, oriented Head: normocephalic Neck: supple Respiratory: other (Coarse breath sounds bilaterally, decreased at the left base, no wheezing) Cardiovascular: other (S1-S2 heard), regular rate and rhythm, systolic murmur Gastrointestinal: bowel sounds, non-tender, soft Extremities: edema (Trace) Results Result Diagram: 04/08/17 0450 04/08/17 0542 Results 24 hrs Laboratory Tests Test 04/07/17 12:01 04/07/17 17:19 04/08/17 04:50 04/08/17 05:42 Bedside Glucose 111 151 White Blood Count 11.5 H Red Blood Count 3.01 L Hemoglobin 9.2 L Hematocrit 28.4 L Mean Corpuscular Volume 94.4 Mean Corpuscular Hemoglobin 30.6 Mean Corpuscular Hemoglobin Concent 32.4 Red Cell Distribution Width 15.0 H Platelet Count 200 Mean Platelet Volume 12.2 H Neutrophils % 72.2 Lymphocytes % 16.1 Monocytes % 7.7 Eosinophils % 2.6 Basophils % 0.3 Nucleated Red Blood Cells % 0.0 Neutrophils # 8.3 H Lymphocytes # 1.9 Monocytes # 0.9 Eosinophils # 0.3 Basophils # 0.0 Nucleated Red Blood Cells # 0.0 Sodium Level 136 Potassium Level 4.0 Chloride Level 105 Carbon Dioxide Level 27 Anion Gap 8 Blood Urea Nitrogen 21 H Creatinine 0.61 Glucose Level 103 Calcium Level 8.5 Magnesium Level 1.9 Test 04/08/17 07:57 Bedside Glucose 100 Medications Medications Current Medications Acetaminophen (Tylenol Supp) 650 mg Q3H PRN DC ELEVATED TEMPERATURE Last administered on 04/01/17 18:32; Admin Dose 650 MG; Start 03/29/17 at 23:30 Hydromorphone HCl (Dilaudid) 0.2 mg Q2H PRN IV PAIN Last administered on 01:39; Admin Dose 0.2 MG; Start 03/30/17 at 00:30 Hydromorphone HCl (Dilaudid) 0.4 mg Q2H PRN IV PAIN Last administered on 17:32; Admin Dose 0.4 MG; Start 03/30/17 at 00:30 Pantoprazole (Protonix Iv) 40 mg DAILY@06 IV Last administered on 04/08/17 05: 37; Admin Dose 40 MG; Start 03/31/17 at 06:00 Hydralazine HCl (Apresoline) 10 mg Q4H PRN IV ELEVATED BLOOD PRESSURE; Start at 20:00 Metoprolol Tartrate (Lopressor) 25 mg BID PO Last administered on 04/08/17 08: 48; Admin Dose 25 MG; Start 04/02/17 at 12:00 Diagnostic Test (Pha) (Accu-Chek) 1 ea 02 XX ; Start 04/03/17 at 02:00 Miscellaneous Information 1 ea NOTE XX ; Start 04/02/17 at 12:00 Glucose (Glutose) 15 gm Q15M PRN PO DECREASED GLUCOSE; Start 04/02/17 at 12:00 Glucose (Glutose) 22.5 gm Q15M PRN PO DECREASED GLUCOSE; Start 04/02/17 at 12: 00 Dextrose (D50w Syringe) 25 ml Q15M PRN IV DECREASED GLUCOSE; Start 04/02/17 at 12:00 Dextrose (D50w Syringe) 50 ml Q15M PRN IV DECREASED GLUCOSE; Start 04/02/17 at 12:00 Glucagon (Glucagen) 1 mg Q15M PRN IM DECREASED GLUCOSE; Start 04/02/17 at 12:00 Glucose (Glutose) 15 gm Q15M PRN BUCCAL DECREASED GLUCOSE; Start 04/02/17 at 12 :00 Zolpidem Tartrate (Ambien) 5 mg HS PRN PO INSOMNIA Last administered on 22:23; Admin Dose 5 MG; Start 04/03/17 at 11:00 Atorvastatin Calcium (Lipitor) 40 mg HS PO Last administered on 04/07/17 20:58 ; Admin Dose 40 MG; Start 04/04/17 at 21:00 Lisinopril (Zestril) 5 mg DAILY PO Last administered on 04/08/17 08:48; Admin Dose 5 MG; Start 04/05/17 at 09:00 Ranulfo Alvarado DO April 08, 2017 09:54
[2017-04-08] MEDS ORDERED: ASPIRIN (EC) 81 MG TAB PO SCH (10:00)
[2017-04-08] MEDS ORDERED: MAGNESIUM SULFATE 2 GM/50 ML 50 ML IVPB ONE (10:00)
--- NOTE | 2017-04-08 11:50 | CONS ---
Date/Time of Note Date/Time of Note DATE: 04/08/17 TIME: 11:46 Assessment/Plan Assessment/Plan Additional Assessment/Plan Assessment recommendations; 1. Patient admitted for CABG surgery as well as mitral valve replacement. 2. Mild CHF, clinically compensated. With significant radiological improvement. Status post right-sided thoracentesis. 3. Currently no evidence of any infective process. Continue current treatment. Patient can be discharged home. Consultation Date/Type/Reason Admit Date/Time March 29, 2017 at 09:30 Initial Consult Date 04/01/17 Type of Consultation: Pulmonary Referring Provider: RUBI BROCK MD 24 HR Interval Summary Free Text/Dictation Patient's condition is stable. Doing very well overall. Denies any shortness of breath, chest pain. Currently sitting in a chair by bedside. Exam/Review of Systems Vital Signs Vitals Vital Signs Date Time Temp Pulse Resp B/P Pulse Ox O2 Delivery O2 Flow Rate FiO2 04/08/17 11:16 98.4 86 18 95/55 98 04/06/17 23:58 Nasal Cannula 2.0 Intake and Output 04/07/17 04/07/17 04/08/17 15:00 23:00 07:00 Intake Total 900 ml 250 ml Balance 900 ml 250 ml Exam H EENT examination; supple neck, no JVD. No lymphadenopathy. Midline trachea. No thyromegaly. Patient has fair dentition. Chest examination; diminished but clear breath sounds bilaterally. S1-S2 audible, no murmurs. There is a well-healing sternal scar. Abdomen examination; soft, nondistended. No organomegaly. Bowel sounds audible. Extremity examination of Ranulfo no peripheral edema. 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 Results Result Diagram: 04/08/17 0450 04/08/17 0542 Results 24 hrs Laboratory Tests Test 04/07/17 12:01 04/07/17 17:19 04/08/17 04:50 04/08/17 05:42 Bedside Glucose 111 151 White Blood Count 11.5 H Red Blood Count 3.01 L Hemoglobin 9.2 L Hematocrit 28.4 L Mean Corpuscular Volume 94.4 Mean Corpuscular Hemoglobin 30.6 Mean Corpuscular Hemoglobin Concent 32.4 Red Cell Distribution Width 15.0 H Platelet Count 200 Mean Platelet Volume 12.2 H Neutrophils % 72.2 Lymphocytes % 16.1 Monocytes % 7.7 Eosinophils % 2.6 Basophils % 0.3 Nucleated Red Blood Cells % 0.0 Neutrophils # 8.3 H Lymphocytes # 1.9 Monocytes # 0.9 Eosinophils # 0.3 Basophils # 0.0 Nucleated Red Blood Cells # 0.0 Sodium Level 136 Potassium Level 4.0 Chloride Level 105 Carbon Dioxide Level 27 Anion Gap 8 Blood Urea Nitrogen 21 H Creatinine 0.61 Glucose Level 103 Calcium Level 8.5 Magnesium Level 1.9 Test 04/08/17 07:57 Bedside Glucose 100 Medications Medications Current Medications Acetaminophen (Tylenol Supp) 650 mg Q3H PRN MD ELEVATED TEMPERATURE Last administered on 04/01/17 18:32; Admin Dose 650 MG; Start 03/29/17 at 23:30 Hydromorphone HCl (Dilaudid) 0.2 mg Q2H PRN IV PAIN Last administered on 01:39; Admin Dose 0.2 MG; Start 03/30/17 at 00:30 Hydromorphone HCl (Dilaudid) 0.4 mg Q2H PRN IV PAIN Last administered on 17:32; Admin Dose 0.4 MG; Start 03/30/17 at 00:30 Pantoprazole (Protonix Iv) 40 mg DAILY@06 IV Last administered on 04/08/17 05: 37; Admin Dose 40 MG; Start 03/31/17 at 06:00 Hydralazine HCl (Apresoline) 10 mg Q4H PRN IV ELEVATED BLOOD PRESSURE; Start at 20:00 Metoprolol Tartrate (Lopressor) 25 mg BID PO Last administered on 04/08/17 08: 48; Admin Dose 25 MG; Start 04/02/17 at 12:00 Diagnostic Test (Pha) (Accu-Chek) 1 ea 02 XX ; Start 04/03/17 at 02:00 Miscellaneous Information 1 ea NOTE XX ; Start 04/02/17 at 12:00 Glucose (Glutose) 15 gm Q15M PRN PO DECREASED GLUCOSE; Start 04/02/17 at 12:00 Glucose (Glutose) 22.5 gm Q15M PRN PO DECREASED GLUCOSE; Start 04/02/17 at 12: 00 Dextrose (D50w Syringe) 25 ml Q15M PRN IV DECREASED GLUCOSE; Start 04/02/17 at 12:00 Dextrose (D50w Syringe) 50 ml Q15M PRN IV DECREASED GLUCOSE; Start 04/02/17 at 12:00 Glucagon (Glucagen) 1 mg Q15M PRN IM DECREASED GLUCOSE; Start 04/02/17 at 12:00 Glucose (Glutose) 15 gm Q15M PRN BUCCAL DECREASED GLUCOSE; Start 04/02/17 at 12 :00 Zolpidem Tartrate (Ambien) 5 mg HS PRN PO INSOMNIA Last administered on 22:23; Admin Dose 5 MG; Start 04/03/17 at 11:00 Atorvastatin Calcium (Lipitor) 40 mg HS PO Last administered on 04/07/17 20:58 ; Admin Dose 40 MG; Start 04/04/17 at 21:00 Lisinopril (Zestril) 5 mg DAILY PO Last administered on 04/08/17 08:48; Admin Dose 5 MG; Start 04/05/17 at 09:00 Aspirin 81 mg 81 mg DAILY PO Last administered on 04/08/17 10:29; Admin Dose 81 MG; Start 04/08/17 at 10:00 Magnesium Sulfate (Magnesium Sulfate 2 Gm/50 ml) 50 ml @ 25 mls/hr ONCE ONCE IVPB Last administered on 04/08/17 10:29; Admin Dose 25 MLS/HR; Start at 10:00; Stop 04/08/17 at 11:59 TAHIRA TERAN April 08, 2017 11:50
[2017-04-08] MEDS ORDERED: LISI-313 PO (13:08)
[2017-04-08] MEDS ORDERED: ASPI-664 PO (13:08)
[2017-04-08] MEDS ORDERED: METO-448 PO (13:08)
[2017-04-08] MEDS ORDERED: ATOR40TA68 PO (13:08)
[2017-04-08] MEDS ORDERED: FURO40TA4 PO (13:08)
--- NOTE | 2017-04-08 14:28 | CONS ---
Date/Time of Note Date/Time of Note DATE: 04/08/17 TIME: 14:28 Consult Date/Type/Reason Admit Date/Time March 29, 2017 at 09:30 Initial Consult Date 03/30/17 Type of Consultation: Pulmonary Ordering Provider: RUBI BROCK MD Subjective Patient doing well this morning reports no shortness of breath remains stable Objective Vital Signs Date Time Temp Pulse Resp B/P Pulse Ox O2 Delivery O2 Flow Rate FiO2 04/08/17 12:00 84 04/08/17 11:16 98.4 18 95/55 98 04/06/17 23:58 Nasal Cannula 2.0 Intake and Output 04/07/17 04/07/17 04/08/17 15:00 23:00 07:00 Intake Total 900 ml 250 ml Balance 900 ml 250 ml Exam GENERAL: VITAL SIGNS: per chart NECK: Supple. No JVD or lymphadenopathy. CARDIAC EXAM: S1, S2. No added sounds or murmurs. CHEST: clear bilaterally, No added sounds, rales or wheezes ABDOMEN: Soft, nontender. No guarding or rebound. EXTREMITIES: No cyanosis, clubbing or edema. NEUROLOGIC: Generalized weakness. No focal deficits. Well-nourished well- developed gentleman comfortable at rest Results/Medications Result Diagram: 04/08/17 0450 04/08/17 0542 Results 24 hrs Laboratory Tests Test 04/07/17 17:19 04/08/17 04:50 04/08/17 05:42 04/08/17 07:57 Bedside Glucose 151 100 White Blood Count 11.5 H Red Blood Count 3.01 L Hemoglobin 9.2 L Hematocrit 28.4 L Mean Corpuscular Volume 94.4 Mean Corpuscular Hemoglobin 30.6 Mean Corpuscular Hemoglobin Concent 32.4 Red Cell Distribution Width 15.0 H Platelet Count 200 Mean Platelet Volume 12.2 H Neutrophils % 72.2 Lymphocytes % 16.1 Monocytes % 7.7 Eosinophils % 2.6 Basophils % 0.3 Nucleated Red Blood Cells % 0.0 Neutrophils # 8.3 H Lymphocytes # 1.9 Monocytes # 0.9 Eosinophils # 0.3 Basophils # 0.0 Nucleated Red Blood Cells # 0.0 Sodium Level 136 Potassium Level 4.0 Chloride Level 105 Carbon Dioxide Level 27 Anion Gap 8 Blood Urea Nitrogen 21 H Creatinine 0.61 Glucose Level 103 Calcium Level 8.5 Magnesium Level 1.9 Test 04/08/17 12:08 Bedside Glucose 126 Assessment/Plan Chief Complaint/Hosp Course Assessment 1. Status post 5 vessel coronary artery bypass graft surgery and mitral valve replacement 2. Hypoxemic respiratory failure 3. Pulmonary edema radiographically 4. Leukocytosis concerning for possible line sepsis versus pneumonia 5. Encephalopathy toxic metabolic 6. Shock likely component of septic and cardiogenic Plan 1. Ambulate 2. Continue cardiac meds 3. Broaden antibiotics consider ID consult de-escalation of antibiotics 4. Aspiration precautions 5. DVT GI prophylaxis Disposition Agree with discharge home Problems: MUNDO JONES MD, [facility] April 08, 2017 14:28
--- NOTE | 2017-04-11 03:46 | DS ---
DATE OF ADMISSION: 03/29/2017 DATE OF DISCHARGE: 04/08/2017 FINAL DIAGNOSES: 1. Coronary artery disease status post CABG x5 and status post mitral valve replacement. 2. Status post right coronary endarterectomy. 3. Postoperative respiratory failure, resolved. 4. Acute decompensated systolic congestive heart failure. 5. Bilateral pleural effusion, improved. 6. Post abscesses of unknown etiology, resolved. HOSPITAL COURSE: The patient is a 61-year-old French gentleman who had coronary artery disease, a nd the patient was admitted and underwent coronary artery bypass grafting x5 as well as right burleson ry endarterectomy and obtuse marginal branch of circumflex endarterectomy and mitral valve replaceme nt. The patient also had intraaortic balloon pump placement and was admitted in ICU in initial post operative period and was intubated. The patient is followed by Dr. Zafar in pulmonology consultat ion and followed by Dr. Maya and Dr. Alvarado in cardiology consultation. The patient was noted to have fever and leukocytosis and was evaluated by Dr. Gaines in infectious disease consultation. The patient was also started on broad spectrum antibiotics for possible sepsis. The patient's conditio n gradually resolved. Blood and urine cultures and sputum cultures were negative. Influenza screen was negative. The patient eventually was extubated and was then transferred to telemetry floor whe re he was monitored very closely. The patient was also noted to have bilateral pleural effusion and underwent right thoracentesis with removal of 1.350 L of serosanguinous fluid. The patient was sta rted on physical therapy and was able to tolerate it well. The patient's condition improved, and th e patient was discharged home. CONDITION ON DISCHARGE: Hemodynamically stable. ACTIVITIES: As the patient tolerate, increase gradually. DIET: 2 g sodium, low fat, low cholesterol diet. DISCHARGE MEDICATIONS: The patient is given prescription for 1. Aspirin. 2. Atorvastatin. 3. Lasix. 4. Lisinopril. 5. Metoprolol. DISCHARGE INSTRUCTIONS: The patient is instructed to follow up with Dr. Littlejohn of vascular surge in 1 to 2 weeks, to follow up with Dr. Alvarado in 1 to 2 weeks, and to follow up with primary care physician in 1 to 2 weeks. Interdisciplinary plan of care was established for this patient. Plan of care was discussed with Dr Karishma Brock. Dictated By: EDI MENDOZA MUSIC THERAPY SPECIALIST for RUBI BROCK MD SR/CONCEPCION Conf#: [id number] DID#: [id number]
== END 2017-04-08 14:15 | disposition home or self-care (01) | DRG 219 ==
LOC: EDSTATUS 07:30 → REC 09:30 → ICU 22:14 → TEL 04-03 20:06
PROVIDERS: ADMIT Thoracic Surgery (Cardiothoracic Vascular Surgery); ATTEND Thoracic Surgery (Cardiothoracic Vascular Surgery)
PROC: 02RG08Z Replacement of Mitral Valve with Zooplastic Tissue, Open Approach (ICD-10-PCS; 2017-03-29)
PROC: 5A02210 Assistance with Cardiac Output using Balloon Pump, Continuous (ICD-10-PCS; 2017-03-29)
PROC: 5A1945Z Respiratory Ventilation, 24-96 Consecutive Hours (ICD-10-PCS; 2017-03-29)
PROC: 02100Z9 Bypass Coronary Artery, One Artery from Left Internal Mammary, Open Approach (ICD-10-PCS; 2017-03-29)
PROC: 06BQ4ZZ Excision of Left Saphenous Vein, Percutaneous Endoscopic Approach (ICD-10-PCS; 2017-03-29)
PROC: 06BP4ZZ Excision of Right Saphenous Vein, Percutaneous Endoscopic Approach (ICD-10-PCS; 2017-03-29)
PROC: 5A1221Z Performance of Cardiac Output, Continuous (ICD-10-PCS; 2017-03-29)
PROC: 5A1223Z Performance of Cardiac Pacing, Continuous (ICD-10-PCS; 2017-03-29)
PROC: 06HY33Z Insertion of Infusion Device into Lower Vein, Percutaneous Approach (ICD-10-PCS; 2017-03-29)
PROC: 0W993ZX Drainage of Right Pleural Cavity, Percutaneous Approach, Diagnostic (ICD-10-PCS; 2017-03-29)
PROC: 30243M1 Transfusion of Nonautologous Plasma Cryoprecipitate into Central Vein, Percutaneous Approach (ICD-10-PCS; 2017-03-29)
PROC: 30243K1 Transfusion of Nonautologous Frozen Plasma into Central Vein, Percutaneous Approach (ICD-10-PCS; 2017-03-29)
PROC: 30243N1 Transfusion of Nonautologous Red Blood Cells into Central Vein, Percutaneous Approach (ICD-10-PCS; 2017-03-29)
PROC: 30243R1 Transfusion of Nonautologous Platelets into Central Vein, Percutaneous Approach (ICD-10-PCS; 2017-03-29)
PROC: 021 Heart and Great Vessels, Bypass (ICD-10-PCS; principal; 2017-03-29 11:30)
DX: I25.10 Atherosclerotic heart disease of native coronary artery without angina pectoris (principal); G92 Toxic encephalopathy; R65.21 Severe sepsis with septic shock; I50.23 Acute on chronic systolic (congestive) heart failure; J95.821 Acute postprocedural respiratory failure; A41.9 Sepsis, unspecified organism; J90 Pleural effusion, not elsewhere classified; T81.4XXA Infection following a procedure, initial encounter; L02.91 Cutaneous abscess, unspecified; D69.6 Thrombocytopenia, unspecified; I34.0 Nonrheumatic mitral (valve) insufficiency; E78.5 Hyperlipidemia, unspecified; E11.9 Type 2 diabetes mellitus without complications; I10 Essential (primary) hypertension; E88.81 Metabolic syndrome and other insulin resistance; I42.9 Cardiomyopathy, unspecified; J44.9 Chronic obstructive pulmonary disease, unspecified; Y83.2 Surgical operation with anastomosis, bypass or graft as the cause of abnormal reaction of the patient, or of later complication, without mention of misadventure at the time of the procedure; Y92.238 Other place in hospital as the place of occurrence of the external cause
CPT/HCPCS: 32555; 36430; 36592; 36600; 71010; 80048; 80053; 80061; 80202; 81003; 82803; 82962; 83036; 83605; 83615; 83735; 84100; 84132; 84145; 84155; 84157; 85014; 85018; 85025; 85610; 85730; 86644; 86704; 86709; 86803; 86850; 86900; 86901; 86920; 86945; 87040; 87070; 87081; 87086; 87102; 87116; 87340; 87400; 89220; 93005; 93306; 93312; 93325; 94002; 94003; 94770; 97116; 97162; 97530; J1940; C9113; J0171; J0282; J0610; J0690; J0692; J1170; J1644; J1815; J2060; J2150; J2185; J2250; J2260; J2370; J2440; J2720; J3010; J3370; J3475; J3480; J7042; J7050; J7060; J7070; P9016; P9035; P9045; P9047; P9059

== ENCOUNTER 2018-01-03 11:35 | Inpatient (IN) | END 2018-01-06 17:30 | disposition home or self-care (01) | DRG 291 ==